=== PATIENT | male | born 1950 | race Caucasian/White ===

== ENCOUNTER → 2018-11-13 10:12 | Outpatient (CLI) | payer MEDICARE, OTHER, SELFPAY ==
--- NOTE | 2018-11-13 | DI.RAD.S_ITS ---
PROCEDURE: FL BARIUM SWALLOW INDICATIONS: GERD/THROAT PAIN COMPARISON: None. FINDINGS: Function: Tertiary contractions are noted in mid to distal esophageal wall muscles with stasis of ingested contrast. No elicited gastroesophageal reflux. There is delayed transit of a calibrated barium tablet through the esophagus into the stomach at the level of GE junction. Morphology: Air-contrast images demonstrate normal mucosal morphology. Single contrast views show no esophageal strictures, extrinsic mass effects, or diverticula. Limited images of the stomach demonstrate normal appearance. 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 No intraluminal filling defect or stricture is seen. No significant gastroesophageal reflux. Dictated by: Víctor Pepe M.D. on 11/13/2018 at 12:12 Approved by: Víctor Pepe M.D. on 11/13/2018 at 12:14
== END ==
PROVIDERS: PCP Internal Medicine; Visit Provider Otolaryngology
DX: K21.9 Gastro-esophageal reflux disease without esophagitis (principal); R07.0 Pain in throat
CPT/HCPCS: 74220

== ENCOUNTER 2019-01-20 14:31 | Emergency (ER) | payer MEDICARE, OTHER, SELFPAY ==
[2019-01-20 14:34] VITALS: BP 191/96; PULSE 87; RESP 18; TEMP 36.1; O2SAT 100
--- NOTE | 2019-01-20 14:58 | PC.NURSE ---
Tetanus up to date per patient.
--- NOTE | 2019-01-20 15:01 | ED.WOUNDLAC ---
HPI - Wound/Laceration <Emani Watson PA-C - Last Filed: 01/20/19 17:33> General Chief Complaint: Wound/Laceration Stated Complaint: RIGHT HAND LITTLE FINGER LACERATION Time Seen by Provider: 01/20/19 15:01 Source: patient Mode of arrival: ambulatory Limitations: no limitations History of Present Illness HPI narrative: This 68-year-old right handed male comes to ED secondary to right pinky finger laceration. He states that he got it caught on the sharp edge of a metal machine part and the table it was on. He states that this just happened a couple of hours ago, has been throbbing and was bleeding quite a bit. He did take his usual pain medicine which she thinks has helped somewhat. He denies any other injury. States his tetanus vaccine is up-to-date in the last 5 years. He notes that he has had significantly elevated blood pressure recently and has appointment with his PCP for this. Denies any change in medical history since last here. Med/Surg History Diabetes mellitus, type II Hypertension Hyperlipidemia Rheumatoid arthritis, with chronic knee hip and shoulder pain Social History Former smoker, quit smoking in 1988 Alcohol use: N quit in 1988 without a history of abuse Caffeine use: Street drug use: N Related Data Home Medications Medication Instructions Recorded Confirmed atorvastatin [Lipitor] 40 mg PO BEDTIME #0 07/05/17 01/20/19 canagliflozin [Invokana] 100 mg PO QDAY #0 07/05/17 cyclobenzaprine 10 mg PO BID #0 07/05/17 01/20/19 docusate sodium 250 mg PO TID #0 07/05/17 fenofibrate 160 mg PO DAILY #0 07/05/17 01/20/19 fluticasone [Flovent Diskus] 50 mcg INH Q DAY #0 07/05/17 hydrochlorothiazide 25 mg PO DAILY #0 07/05/17 01/20/19 loratadine [Claritin] 10 mg PO DAILY PRN #0 07/05/17 01/20/19 metoprolol succinate [Toprol XL] 25 mg PO DAILY #0 07/05/17 01/20/19 nifedipine 60 mg PO BID #0 07/05/17 01/20/19 oxycodone [OxyContin] 20 mg PO BID #0 07/05/17 01/20/19 sennosides [senna] 2 tab PO Q DAY #0 07/05/17 docusate calcium [Stool Softener] 240 mg PO TID 01/20/19 01/20/19 fluticasone 1 spray INTRANASAL DIRECTED 01/20/19 01/20/19 lisinopril 40 mg PO DAILY 01/20/19 01/20/19 metformin 850 mg PO TID 01/20/19 01/20/19 oxycodone-acetaminophen 1 tab PO BID PRN 01/20/19 01/20/19 oxycodone-acetaminophen 1 tab PO Q8H PRN 01/20/19 01/20/19 Previous Rx's Medication Instructions Recorded FERROUS SULFATE (IRON) 325 mg PO BIDCC #60 cap 07/08/17 pantoprazole 40 mg PO 0600,2100 #60 tab 07/08/17 cephalexin [Keflex] 500 mg PO Q8H 7 Days #21 cap 01/20/19 Allergies Allergy/AdvReac Type Severity Reaction Status Date / Time No Known Allergies Allergy Uncoded 03/12/18 12:46 Review of Systems <Emani Watson PA-C - Last Filed: 01/20/19 17:33> Review of Systems ROS Unobtainable: All systems reviewed & are unremarkable except as noted in HPI and below PFSH <Emani Watson PA-C - Last Filed: 01/20/19 17:33> Family History Other No pertinent family history Exam <Emani Watson PA-C - Last Filed: 01/20/19 17:33> Narrative Exam Narrative: GENERAL APPEARANCE: Patient sitting comfortably, in no distress. LUNGS: Clear to auscultation bilaterally. HEART: Rate and rhythm regular without murmur, normal S1 and S2, no S3 or S4. DERM: On the right pinky finger there is a 5 mm laceration at the border of the nail which does not have any gap. There is slight ecchymoses/purple discoloration at the more anterior part of the wound. The nail has a longitudinal break a few mm from the proximal border (complete), partly avulsed NEUROVASCULAR: Right 5th finger sensation is grossly intact, warm and pink MUSCULOSKELETAL: Full range of motion of the right pinky finger, strength intact in all tendons against resistance Initial Vital Signs Initial Vital Signs: Vital Signs Temperature 96.9 F L 01/20/19 14:34 Pulse Rate 87 01/20/19 14:34 Respiratory Rate 18 01/20/19 14:34 Blood Pressure 191/96 H 01/20/19 14:34 Pulse Oximetry 100 01/20/19 14:34 <Titi Farnsworth DO - Last Filed: 01/20/19 17:46> Initial Vital Signs Initial Vital Signs: Vital Signs Temperature 96.9 F L 01/20/19 14:34 Pulse Rate 87 01/20/19 14:34 Respiratory Rate 18 01/20/19 14:34 Blood Pressure 191/96 H 01/20/19 14:34 Pulse Oximetry 100 01/20/19 14:34 Procedures <Emani Watson PA-C - Last Filed: 01/20/19 17:33> [facility] [place] Name of Procedure: Laceration repair: Wound was soaked and cleaned with soap and saline. Right 5th Finger was cleaned with alcohol and digital block placed with 4 cc 1% lidocaine plain in the usual fashion. Finger tip and nail were cleaned with Betadine. The nail was excised. Nail bed is partly macerated and friable, closed with #3 5-0 chromic gut suture. Skin laceration on the medial side was closed with #1 5-0 nylon suture. A portion of the nail was used under bandage for protection. Finger was bandaged and placed in a metal splint. Course <Emani Watson PA-C - Last Filed: 01/20/19 17:33> Orders Ordered: ED Orders 01/20/19 15:04 XR finger RT min 2V Stat Vital Signs - 8 hr 01/20/19 14:34 01/20/19 17:02 Temperature 96.9 F L 97.3 F L Pulse Rate 87 88 Respiratory Rate 18 16 Blood Pressure 191/96 H 174/64 H Pulse Oximetry 100 98 <DO Albertina Gil Last Filed: 01/20/19 17:46> Orders Ordered: ED Orders 01/20/19 15:04 XR finger RT min 2V Stat Vital Signs - 8 hr 01/20/19 14:34 01/20/19 17:02 Temperature 96.9 F L 97.3 F L Pulse Rate 87 88 Respiratory Rate 18 16 Blood Pressure 191/96 H 174/64 H Pulse Oximetry 100 98 MDM - Wound/Laceration <Emani Watson PA-C - Last Filed: 01/20/19 17:33> Imaging Data finger: Radiologist's impression: [address] [address] XRay Report Signed Patient: Nelson Goldstein EMR#: [id number] : 9Acct:[id number] Age/Sex: 68 / MDate of Service: 01/20/19 Loc: ED Accession Number: [id number] Procedure: XR finger RT min 2V Ordering Provider: Emani Watson P.A-C PROCEDURE: XR FINGER RT MIN 2V INDICATIONS: Trauma TECHNIQUE: AP hand, 2 views of the pinky (5th) finger(s) acquired. COMPARISON: None. FINDINGS: Bones: There is a nondisplaced fracture identified involving the tuft of the distal phalanx of the right 5th digit. No intra-articular extension into the distal interphalangeal joint is evident. The remainder of the imaged osseous structures are otherwise unremarkable and noted to be intact. Mild degenerative changes involving the interphalangeal joints of the hand are most pronounced involving the distal interphalangeal joints. Slight deformity involving the 5th metacarpal may be related to previous healed fracture, but may also be within normal limits. Soft tissues: No suspicious soft tissue calcifications. No unexpected radiopaque foreign bodies are evident. IMPRESSION: 1. Nondisplaced tuft fracture of the distal phalanx of the right 5th digit. 2. No radiopaque foreign bodies. Dictated by: Francis Kilpatrick M.D. on 01/20/2019 at 14:26 Approved by: Francis Kilpatrick M.D. on 01/20/2019 at 14:27 Discharge Plan Departure Patient Disposition: Home Clinical Impression: Laceration, Open fracture of tuft of distal phalanx of finger Discharge Date/Time: 01/20/19 17:01 Interventions: ED Discharge Assessment Last Done: 01/20/19 17:02 Instructions: DI for Finger Fracture, DI for Laceration Repair -- Finger Activity Restrictions/Additional Instructions: Please keep your sutures clean and dry. It is okay to rinse quickly and pat dry but do not immerse in water. Monitor for any signs of infection as we discussed (i.e. Worsening redness or swelling, draining pus, fever), and see your PCP or return to ED right away if any. The 1 black suture on the side of your finger will need to be removed in about a week. The ones in your nail bed will not need to be removed. We put a piece of the nail in as a part of your bandage just for protection. This may come off when you change the dressing and it is fine to leave it off (it won't make a difference in as far as healing). It is not clear at this point whether your nail will grow back normally (it will depend on how much damage the crush injury caused, but it should not affect the function of your finger). You did break (crush) the tip of your finger today, and this is considered an open fracture that needs antibiotics. I have sent a prescription for cephalexin to your pharmacy for you to start. This is usually well tolerated. Take it 3 times daily. Please start right away and get another dose in before bedtime. Dr. Espinoza was not available to recheck the finger and get the stitch out so we have scheduled you with Dr. Mobley on Saturday at 12:00 (you should keep your original appointment for your blood pressure as well since Dr. Espinoza is your PCP) Prescriptions: New cephalexin [Keflex] 500 mg capsule 500 mg PO Q8H 7 Days Qty: 21 RF: 0 No Action nifedipine 60 MG tablet extended release 24hr 60 mg PO BID Qty: 0 RF: 0 cyclobenzaprine 10 MG tablet 10 mg PO BID Qty: 0 RF: 0 atorvastatin [Lipitor] 40 MG tablet 40 mg PO BEDTIME Qty: 0 RF: 0 hydrochlorothiazide 25 MG tablet 25 mg PO DAILY Qty: 0 RF: 0 docusate sodium 250 MG capsule 250 mg PO TID Qty: 0 RF: 0 fenofibrate 160 MG tablet 160 mg PO DAILY Qty: 0 RF: 0 metoprolol succinate [Toprol XL] 25 MG tablet extended release 24 hr 25 mg PO DAILY Qty: 0 RF: 0 canagliflozin [Invokana] 100 MG tablet 100 mg PO QDAY Qty: 0 RF: 0 oxycodone [OxyContin] 20 MG tablet,oral only,ext.rel.12 hr 20 mg PO BID Qty: 0 RF: 0 sennosides [senna] 8.6 MG tablet 2 tab PO Q DAY Qty: 0 RF: 0 fluticasone [Flovent Diskus] 50 MCG blister with device 50 mcg INH Q DAY Qty: 0 RF: 0 loratadine [Claritin] 10 MG tablet 10 mg PO DAILY PRN (Reason: Allergy Symptoms) Qty: 0 RF: 0 pantoprazole 40 MG tablet,delayed release (DR/EC) 40 mg PO 0600,2100 Qty: 60 RF: 0 FERROUS SULFATE (IRON) 325 mg PO BIDCC Qty: 60 RF: 0 docusate calcium [Stool Softener] 240 mg capsule 240 mg PO TID RF: 0 metformin 850 mg tablet 850 mg PO TID RF: 0 oxycodone-acetaminophen 5-325 mg tablet 1 tab PO BID PRN (Reason: pain) RF: 0 oxycodone-acetaminophen 10-325 mg tablet 1 tab PO Q8H PRN (Reason: pain) RF: 0 lisinopril 40 mg tablet 40 mg PO DAILY RF: 0 fluticasone 50 mcg/actuation spray,suspension 1 spray Intranasal DIRECTED RF: 0 Referrals: Kristopher Espinoza MD [Primary Care Provider] - <Titi Farnsworth DO - Last Filed: 01/20/19 17:46> Cosign ED Attending Cosignature Attestation: I was available for consultation during this patient's emergency department encounter
--- NOTE | 2019-01-20 15:04 | DI.RAD.S_ITS ---
PROCEDURE: XR FINGER RT MIN 2V INDICATIONS: Trauma TECHNIQUE: AP hand, 2 views of the pinky (5th) finger(s) acquired. COMPARISON: None. FINDINGS: Bones: There is a nondisplaced fracture identified involving the tuft of the distal phalanx of the right 5th digit. No intra-articular extension into the distal interphalangeal joint is evident. The remainder of the imaged osseous structures are otherwise unremarkable and noted to be intact. Mild degenerative changes involving the interphalangeal joints of the hand are most pronounced involving the distal interphalangeal joints. Slight deformity involving the 5th metacarpal may be related to previous healed fracture, but may also be within normal limits. Soft tissues: No suspicious soft tissue calcifications. No unexpected radiopaque foreign bodies are evident. IMPRESSION: 1. Nondisplaced tuft fracture of the distal phalanx of the right 5th digit. 2. No radiopaque foreign bodies. Dictated by: Francis Kilpatrick M.D. on 01/20/2019 at 14:26 Approved by: Francis Kilpatrick M.D. on 01/20/2019 at 14:27
--- NOTE | 2019-01-20 16:56 | PC.NURSE ---
Applied steri-strips over nailbed and applied finger splint;
[2019-01-20 17:02] VITALS: BP 174/64; PULSE 88; RESP 16; TEMP 36.3; O2SAT 98
== END 2019-01-20 17:01 | disposition home or self-care (01) ==
PROVIDERS: Emergency Provider Internal Medicine; PCP Internal Medicine
DX: S62.666B Nondisplaced fracture of distal phalanx of right little finger, initial encounter for open fracture (principal); W26.8XXA Contact with other sharp object(s), not elsewhere classified, initial encounter
CPT/HCPCS: 29130; 73140; 99283

== ENCOUNTER 2019-09-02 14:22 | Day surgery (SDC) | payer MEDICARE, OTHER, SELFPAY ==
[2019-09-02] VITALS (7 sets, daily range): BP systolic 159–186; BP diastolic 78–92; PULSE 84–88; RESP 9–15; TEMP 36.4–36.6; O2SAT 96–100; BMI 29.5
--- NOTE | 2019-09-02 | PATH_ITS ---
[facility] Accession Number: [id number] . 01 Material submitted: . PART A: gastrointestinal site - GASTRIC BIOPSY PART B: esophagus, E-G Junction - GE JUNCTION/FUNDUS . 01 Clinical history: . EGD W/POSS BX A. R/O H. PYLORI B. INFLAMMATION; R/O DYSPLASIA . 02 Diagnosis: A. Stomach, Biopsy: Antral body type mucosa with mild chronic gastritis. Negative for Helicobacter by immunohistochemistry. Negative for intestinal metaplasia. Negative for dysplasia and malignancy. . B. Gastroesophageal Junction/Fundus, Biopsy: Columnar mucosa with foveolar hyperplasia. Negative for intestinal metaplasia by Alcian blue stain. Negative for dysplasia and malignancy. [facility] 09/07/2019 1635 Local . 02 Electronically signed: . Ludivina Lopez MD, Pathologist NPI- [id number] . 01 Gross description: . Part A: GASTRIC BIOPSY: Received in formalin are 3 fragment(s) of lyons, soft tissue measuring 0.1 x 0.1 x 0.1 cm to 0.3 x 0.2 x 0.2 cm which is entirely submitted and submitted entirely in 1 cassette(s) Part B: GE JUNCTION/FUNDUS: Received in formalin are multiple fragment(s) of lyons, soft tissue measuring 0.1 x 0.1 x 0.1 cm to 0.2 x 0.2 x 0.2 cm which is entirely submitted and submitted entirely in 1 cassette(s) /[facility] [place]/03/[place] 1657 Local . 02 Microscopic: . A. An immunohistochemical stain was performed to evaluate for Helicobacter organisms and is negative. The control stain showed appropriate reactivity. . B. An AB and PAS stain was performed to evaluate for intestinal metaplasia and is negative. The control stain showed appropriate reactivity. . * This test was developed and its performance characteristics determined by [facility]. It has not been cleared or approved by the U.S. Food and Drug Administration. The FDA has determined that such clearance or approval is not necessary. This test is used for clinical purposes. It should not be regarded as investigational or for research. . 02 Pathologist provided ICD-10: R13.12 . 02 CPT . 707006, 406989, 674023, M90036 Performed at: 01 [facility] [address] [place] [id number] MD Moris Davis MD Phone: [phone] Performed at: 02 [facility] [address] [place] [id number] MD Ludivina Lopez MD Phone: [phone]
--- NOTE | 2019-09-02 13:22 | PM.HP.1 ---
History of Present Illness History of Present Illness Date Patient Seen: 09/02/19 Chief complaint: [id number] EGD W/POSS BX Narrative: Patient is a 69-year-old male who presented for EGD. Patient was last seen in the office on June 30, 2019. At that time he described dysphagia. 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 His last EGD was 2 years ago at [facility]. He was noted to have Mathias's esophagus and a gastric ulcer at that time. Modified barium swallow that would be General in October of 2018 showed slow progression of contrast suspicious for motility disorder. He does have a history of diabetes, hypertension, PTSD, chronic pain syndrome. Patient History Family History (Updated 01/20/19 @ 15:19 by Emani Watson PA-C) Other No pertinent family history Social History household members: friend(s) Family & Social History Family History Other No pertinent family history Meds Home Medications and Allergies Home Medications Medication Instructions Recorded Confirmed Type Flovent Diskus 50 mcg INH Q DAY #0 07/05/17 09/02/19 History atorvastatin [Lipitor] 40 mg PO BEDTIME #0 07/05/17 09/02/19 History cyclobenzaprine 10 mg PO BID #0 07/05/17 09/02/19 History fenofibrate 160 mg PO DAILY #0 07/05/17 09/02/19 History hydrochlorothiazide 25 mg PO DAILY #0 07/05/17 09/02/19 History loratadine [Claritin] 10 mg PO DAILY PRN #0 07/05/17 09/02/19 History metoprolol succinate [Toprol XL] 25 mg PO DAILY #0 07/05/17 09/02/19 History nifedipine 60 mg PO BID #0 07/05/17 09/02/19 History oxycodone [OxyContin] 20 mg PO BID #0 07/05/17 09/02/19 History sennosides [senna] 2 tab PO Q DAY #0 07/05/17 09/02/19 History pantoprazole 40 mg PO 0600,2100 #60 tab 07/08/17 09/02/19 Rx docusate calcium [Stool Softener] 240 mg PO TID 01/20/19 09/02/19 History fluticasone propionate 1 spray INTRANASAL DIRECTED 01/20/19 09/02/19 History lisinopril 40 mg PO DAILY 01/20/19 09/02/19 History metformin 850 mg PO TID 01/20/19 09/02/19 History oxycodone-acetaminophen 1 tab PO BID PRN 01/20/19 09/02/19 History oxycodone-acetaminophen 1 tab PO Q8H PRN 01/20/19 09/02/19 History oxycodone [OxyContin] 10 mg PO BID 09/02/19 09/02/19 History Allergies Allergy/AdvReac Type Severity Reaction Status Date / Time No Known Allergies Allergy Uncoded 03/12/18 12:46 Review of Systems Review of Systems ROS Unobtainable: All systems reviewed & are unremarkable except as noted in HPI and below Exam Const General: cooperative, healthy appearing, comfortable, well developed and well groomed Nutritional Appearance: average body habitus Orientation: alert, awake and oriented x3 HENMT Head: normocephalic and atraumatic Nose: external nose normal Mouth: oral mucosae normal Resp Effort & Inspection: normal respiratory effort, able to speak in complete sentences and abnormal respiratory pattern Auscultation: clear to auscultation bilaterally Cardio Rate: regular rate Rhythm: regular rhythm Heart Sounds: S1 normal and S2 normal GI Palpation: soft and No tender Auscultation: normal bowel sounds Extrem General: no pedal edema Assessment & Plan Assessment & Plan narrative: 1. Dysphagia 2. History of peptic ulcer disease 3. History of Mathias's esophagus EGD today with anesthesia
[2019-09-02] MEDS: SODIUM CHLORIDE 0.9% 1,000 ML 70 ML IV (15:26)
--- NOTE | 2019-09-02 16:27 | PM.OP.ENDO ---
Operative Date/Time/Diagnoses Date of procedure: 09/02/19 Time of procedure: 16:18 Procedure Notes Procedure in detail: Surgeon: Zina Mejia DO Procedure: Esophagogastroduodenoscopy with __ Preoperative diagnosis: 1. Dysphagia 2. History of Mathias's esophagus 3. History of peptic ulcer disease Postoperative diagnosis: 1. GE junction/fundus inflammation -rule out dysplasia 2. Normal-appearing gastric mucosa, Rule out H pylori 3. Tortuous esophagus -suggestive of esophageal dysmotility Medications: Monitored anesthesia care, see anesthesia note Preanesthesia Assessment An H and P was performed/updated and the Px?s ASA class is ____. The procedure was discussed in detail with the patient. The potential risks and complications including infection, bleeding, missed lesions, perforation, need for surgery in case of perforation, prolonged hospital stay, and were explained. A brief question and answer period was allotted and once all questions were answered, informed consent was obtained. The patient was brought back to the procedure room and placed on standard monitoring. The patient?s vital signs were monitored continuously throughout the entire procedure. Prior to starting, a timeout was performed to confirm the patient?s identity, allergies, medications, and procedure. Procedure in detail The patient was placed in left lateral decubitus position and a bite block was inserted. The tip of the upper endoscope was placed into the mouth and advanced without difficulty under direct visualization into the esophagus. Esophagus: 1. Inflammation at the GE junction extending into the fundus -biopsies were taken to rule out dysplasia, this is concerning for dysplasia/early mass 2. Moderately tortuous esophagus in the mid and distal esophagus Stomach: Normal appearing gastric mucosa with no further evidence of peptic ulcer. Biopsied to rule out H pylori. Duodenum: Normal appearing duodenum The patient tolerated the procedure well and will be brought back to the recovery area to be discharged once criteria are met. The total physician intraservice time was 9min. Complications There were no complications and estimated blood loss was minimal. Recommendations: Resume previous diet Continue outPx medications Follow up pathology results Repeat EGD will be determined after pathology results are reviewed Office follow up as previously scheduled An emergency contact number was given to the patient for any complications related to the procedure
--- NOTE | 2019-09-02 16:51 | SUR.PHASEI ---
To PACU awake and oriented, HOB elevated, juice given. spoke with the patient.
== END 2019-09-02 17:11 | disposition home or self-care (01) ==
PROVIDERS: Family Provider Internal Medicine; PCP Internal Medicine; Visit Provider Student in an Organized Health Care Education/Training Program
PROC: 0DJ08ZZ Inspection of Upper Intestinal Tract, Via Natural or Artificial Opening Endoscopic (ICD-10-PCS; CPT 43235; principal; 2019-09-02 15:30)
DX: R13.12 Dysphagia, oropharyngeal phase (principal); I10 Essential (primary) hypertension; E11.9 Type 2 diabetes mellitus without complications; Z79.84 Long term (current) use of oral hypoglycemic drugs
CPT/HCPCS: 43239; J2250; J2704; J3010

== ENCOUNTER → 2019-09-07 11:06 | Outpatient (CLI) | payer MEDICARE, OTHER, SELFPAY ==
--- NOTE | 2019-09-07 | DI.MRI.S_ITS ---
PROCEDURE: MR SHOULDER RT WO CON INDICATIONS: Pain in right shoulder TECHNIQUE: Noncontrast axial fat suppressed T2 weighted pulse sequence however the remaining pulse sequences were unable to be obtained, as the patient declined continuing with examination COMPARISON: [facility], CR, XR SHOULDER 2+ VIEWS RIGHT, 08/20/2019, 11:47. FINDINGS: Image quality: Excellent. Degenerative cystic change at the posterior aspect of the greater tuberosity. Mild subscapularis tendinopathy/thickening. There is mild glenohumeral joint degeneration. IMPRESSION: Incomplete, non-diagnostic examination. On the few obtained images, there is mild subscapularis tendinopathy/thickening and glenohumeral joint degeneration. Dictated by: Yunior Coates M.D. on 09/07/2019 at 13:01 Approved by: Yunior Coates M.D. on 09/07/2019 at 13:05
== END ==
PROVIDERS: Family Provider Internal Medicine; PCP Internal Medicine; Visit Provider Orthopaedic Surgery
DX: M25.511 Pain in right shoulder (principal); M19.011 Primary osteoarthritis, right shoulder
CPT/HCPCS: 73221

== ENCOUNTER → 2020-06-26 09:58 | Outpatient (CLI) | payer MEDICARE, OTHER, SELFPAY ==
[2020-06-27 21:17] LABS: COVID19 Sendout Not Detected (Not Detect)
== END ==
PROVIDERS: Family Provider Internal Medicine; PCP Internal Medicine; Visit Provider Physician Assistant
DX: Z01.818 Encounter for other preprocedural examination (principal)
CPT/HCPCS: 87635

== ENCOUNTER 2020-06-29 12:14 | Day surgery (SDC) | payer MEDICARE, OTHER, SELFPAY ==
--- NOTE | 2020-06-29 | PATH_ITS ---
[facility] Accession Number: [id number] . 01 Material submitted: . esophagus, E-G Junction - GE JUNCTION NODULARITY . 01 Clinical history: . EGD W/BOTOX AND BX . 02 Diagnosis: Gastroesophageal Junction, Nodularity, Biopsy: Squamocolumnar junctional mucosa with chronic inflammation and foveolar hyperplasia. Negative for intestinal metaplasia. Negative for dysplasia and malignancy. [facility] 07/01/2020 1003 Local . 02 Electronically signed: . Ludivina Lopez MD, Pathologist NPI- [id number] . 01 Gross description: . GE JUNCTION NODULARITY: Received in formalin is 1 fragment(s) of lyons, soft tissue measuring 0.2 x 0.2 x 0.2 cm submitted entirely in 1 cassette(s) /[facility]BJ 06/30/2020 0813 Local . 02 Pathologist provided ICD-10: R13.14 . 02 CPT . 271519 Performed at: 01 [facility] [address], [place], [place] [id number] MD Moris Davis MD Phone: [phone] Performed at: 02 [facility] [address] [place], [place] [id number] MD Ludivina Lopez MD Phone: [phone]
--- NOTE | 2020-06-29 12:29 | PM.HP.1 ---
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 On questioning today the patient states that his swallowing is markedly better and he is able to eat pretty much any type of food. This is a change from his last visit with in January 2020. EGD showed esophagitis which was treated PPI and sucralfate. Patient History Family & Social History Family History Other No pertinent family history Social History: household members friend(s) Meds Home Medications and Allergies Home Medications Medication Instructions Recorded Confirmed Type Flovent Diskus 50 mcg INH Q DAY #0 07/05/17 09/02/19 History atorvastatin [Lipitor] 40 mg PO BEDTIME #0 07/05/17 09/02/19 History cyclobenzaprine 10 mg PO BID #0 07/05/17 09/02/19 History fenofibrate 160 mg PO DAILY #0 07/05/17 09/02/19 History hydrochlorothiazide 25 mg PO DAILY #0 07/05/17 09/02/19 History loratadine [Claritin] 10 mg PO DAILY PRN #0 07/05/17 09/02/19 History metoprolol succinate [Toprol XL] 25 mg PO DAILY #0 07/05/17 09/02/19 History nifedipine 60 mg PO BID #0 07/05/17 09/02/19 History oxycodone [OxyContin] 20 mg PO BID #0 07/05/17 09/02/19 History sennosides [senna] 2 tab PO Q DAY #0 07/05/17 09/02/19 History pantoprazole 40 mg PO 0600,2100 #60 tab 07/08/17 09/02/19 Rx docusate calcium 240 mg PO TID 01/20/19 09/02/19 History fluticasone propionate 1 spray INTRANASAL DIRECTED 01/20/19 09/02/19 History lisinopril 40 mg PO DAILY 01/20/19 09/02/19 History metformin 850 mg PO TID 01/20/19 09/02/19 History oxycodone-acetaminophen 1 tab PO BID PRN 01/20/19 09/02/19 History oxycodone-acetaminophen 1 tab PO Q8H PRN 01/20/19 09/02/19 History oxycodone [OxyContin] 10 mg PO BID 09/02/19 09/02/19 History Allergies Allergy/AdvReac Type Severity Reaction Status Date / Time No Known Allergies Allergy Uncoded 06/29/20 13:33 Exam Narrative Exam Narrative: General: Patient is overweight, not in apparent distress Cardiovascular: Regular rate and rhythm, no murmurs, rubs, or gallops; no evidence of edema; no palpable abdominal aortic aneurysm Gastrointestinal: Normoactive bowel sounds, soft, nontender, nondistended, no rebound tenderness, no hepatosplenomegaly, no evidence of hernia Assessment & Plan Assessment & Plan narrative: 70-year-old male with a history of esophageal dysphagia likely due to esophageal dysmotility 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 His dysphagia is markedly improved with medication and hence we will not perform Botox injection at this point. We will perform the upper endoscopy to check for healing of his esophagitis diagnosed in January 2020 Regarding the procedure(s), the risks and potential complications, benefits, and alternatives (including not doing the procedure) were discussed with the patient. The risks include but are not limited to bleeding, splenic injury, infection, perforation which may require surgical intervention, missed lesions, and adverse reactions to sedative medicines. After a question and answer period, the patient agreed to proceed with the procedure(s) and gives informed consent.
[2020-06-29] MEDS: SODIUM CHLORIDE 0.9% 1,000 ML 70 ML IV (13:35)
[2020-06-29 13:47] VITALS: BP 202/92; PULSE 78; RESP 16; TEMP 35.6; O2SAT 98; BMI 32.5
--- NOTE | 2020-06-29 13:54 | P.OP.ENDO_ITS ---
Operative Date/Time/Diagnoses Date of procedure: 06/29/20 Procedure Notes Procedure in detail: Surgeon: Hadley Urena MD Procedure: Esophagogastroduodenoscopy with biopsy Preoperative diagnosis: Esophageal dysphagia, reflux esophagitis on EGD January 2020 Postoperative diagnosis: GE junction nodularity Medications: Conscious sedation using 6 mg IV of Midazolam and 100 mcg IV of Fentanyl; 20 cc 4% lidocaine gargle Preanesthesia Assessment An H and P was performed/updated and the Px?s ASA class is 2. The procedure was discussed in detail with the patient. The potential risks and complications including infection, bleeding, missed lesions, perforation, need for surgery in case of perforation, prolonged hospital stay, and were explained. A brief question and answer period was allotted and once all questions were answered, informed consent was obtained. The patient was brought back to the procedure room and placed on standard monitoring. The patient?s vital signs were monitored continuously throughout the entire procedure. Prior to starting, a timeout was performed to confirm the patient?s identity, allergies, medications, and procedure. Procedure in detail The patient was placed in left lateral decubitus position and a bite block was inserted. The tip of the upper endoscope was placed into the mouth and advanced without difficulty under direct visualization into the esophagus. Esophagus: There was no significant tortuosity in the distal esophagus on this examination. There is no evidence of esophagitis. The GE junction had perhaps mild hypertonicity. No Botox was injected this exam due to the marked improvement in the patient's dysphagia Stomach: Retroflexion in the cardia area showed some nodularity at the GE junction. This was biopsied with minimal bleeding. The remainder of the stomach appeared unremarkable Duodenum: Normal visualized duodenum The patient tolerated the procedure well and will be brought back to the recovery area to be discharged once criteria are met. The total physician intraservice time was 10 minutes. Complications There were no complications and estimated blood loss was minimal. Recommendations: Resume previous diet Continue outPx medications Follow up pathology results Call our office ([facility]) to schedule follow-up in 3 months; schedule sooner if you have any recurrence of swallowing issues An emergency contact number was given to the patient for any complications related to the procedure
[2020-06-29 14:11] VITALS: BP 184/87; PULSE 72; RESP 15; TEMP 36.4; O2SAT 97
[2020-06-29 14:16] VITALS: BP 186/83; PULSE 70; RESP 15; O2SAT 97
[2020-06-29 14:21] VITALS: BP 172/76; PULSE 74; RESP 16; O2SAT 99
[2020-06-29 14:25] VITALS: BP 176/77; PULSE 74; RESP 16; TEMP 36.7; O2SAT 100
[2020-06-29 14:41] VITALS: BP 197/79; PULSE 75; RESP 15; TEMP 36.3; O2SAT 100
== END 2020-06-29 14:52 | disposition home or self-care (01) ==
PROVIDERS: Family Provider Internal Medicine; PCP Internal Medicine; Referring Provider Internal Medicine Gastroenterology; Visit Provider Internal Medicine Gastroenterology
PROC: 0DJ08ZZ Inspection of Upper Intestinal Tract, Via Natural or Artificial Opening Endoscopic (ICD-10-PCS; CPT 43235; principal; 2020-06-29 15:00)
DX: K21.0 Gastro-esophageal reflux disease with esophagitis (principal); E11.9 Type 2 diabetes mellitus without complications; I10 Essential (primary) hypertension; Z79.84 Long term (current) use of oral hypoglycemic drugs
CPT/HCPCS: 43239

== ENCOUNTER → 2020-08-17 11:40 | Outpatient (CLI) | payer MEDICARE, OTHER, SELFPAY ==
--- NOTE | 2020-08-17 11:45 | DI.RAD.S_ITS ---
PROCEDURE: XR FINGER LT MIN 2V INDICATIONS: LEFT THUMB PAIN TECHNIQUE: AP hand, 2 views of the 1st finger(s) acquired. COMPARISON: [facility], CR, XR FINGER RT MIN 2V, 01/20/2019, 15:11. FINDINGS: Bones: No dislocations. No suspicious bony lesions. Best seen on the lateral views what appears to be a fracture along the palm are aspect of the base of the 1st distal phalanx, angulated anteriorly at its base. Osteoarthritis is superimposed at the interphalangeal Soft tissues: No suspicious soft tissue calcifications. IMPRESSION: Articular margin fracture, chronicity uncertain. 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 Dictated by: Barrie Joseph M.D. on 08/17/2020 at 12:26 Approved by: Barrie Joseph M.D. on 08/17/2020 at 12:28
== END ==
PROVIDERS: Family Provider Internal Medicine; PCP Internal Medicine; Referring Provider Internal Medicine; Visit Provider Internal Medicine
DX: M79.645 Pain in left finger(s) (principal); S62.522A Displaced fracture of distal phalanx of left thumb, initial encounter for closed fracture; M19.042 Primary osteoarthritis, left hand
CPT/HCPCS: 73140

== ENCOUNTER → 2020-09-05 07:44 | Outpatient (CLI) | payer MEDICARE, OTHER, SELFPAY ==
--- NOTE | 2020-09-05 | DI.ECHO.S_ITS ---
[facility] +---------+ : : [address] [place] [place] : : : : [id number] : : : : Phone: [phone] Echocardiogram Report + + :Name: KENY FAY Study Date: 09/05/2020 Height: 68 in : :[facility] Weight: 225 lb : : Gender: Male BSA: 2.1 m2 : :: 1950 Age: 70 yrs BP: 165/86 mmHg: :Reason For Study: LOCALIZED EDEMA : :Ordering Physician: FRANKLIN BEASLEY Performed By: Grecia Pierre : :Referring: FRANKLIN BEASLEY : + + Interpretation Summary Normal both left and right ventricle size and function. The ejection fraction is 60-65%. No significant valvular abnormality. Comparison is made with the echocardiogram of 01/14/2017, there has been no significant change. Procedure: A two-dimensional transthoracic echocardiogram with color flow and Doppler was performed. The study quality was technically adequate. Comparison is made with the echocardiogram of 01/14/2017. The patient was in sinus rhythm with heart rates between 72-84 bpm during the exam. Left Ventricle: The left ventricle is normal in size and wall thickness. The ejection fraction is estimated to be 60-65%. There are no focal wall motion abnormalities. Right Ventricle: The right ventricle is normal in size and function. Atria: The left atrial size is normal. Right atrial size is normal. There is no Doppler evidence for an interatrial shunt. Mitral Valve: The mitral valve is normal in structure and function. There is trace mitral regurgitation. Aortic Valve: The aortic valve is trileaflet. The aortic valve opens well. There is no aortic valve stenosis. No aortic regurgitation is present. Tricuspid Valve: The tricuspid valve is normal in structure and function. Pulmonary artery pressures cannot be estimated because of the lack of a measurable TR jet velocity but the IVC suggests a CVP of around 3 mmHg. There is trace tricuspid regurgitation. Pulmonic Valve: The pulmonic valve is not well visualized. There is no pulmonic valvular regurgitation. Great Vessels: The aortic root is normal size. The aortic root is mildly dilated. The IVC is of normal diameter and collapses greater than 50% with a sniff. This suggests a low right atrial pressure of 3 mm Hg. Pericardium/ Pleura There is no pericardial effusion. There is no pleural effusion. MMode/2D Measurements & Calculations LVIDd: 5.1 cm LVOT diam: 2.3 cm LVIDs: 3.1 cm Ao root diam: 3.1 cm FS: 38.6 % asc Aorta Diam: 3.4 cm EPSS: 1.0 cm Ao Arch Diam (Prox Trans): 2.9 cm IVSd: 1.00 cm LVPWd: 1.1 cm LV mark. diameter/BSA (cm/m^2): 2.4 LV sys. diameter/BSA (cm/m^2): 1.5 LA A2 area: 20.9 cm2 RA long axis: 5.7 cm LA A4 area: 21.3 cm2 RA area: 19.6 cm2 LA length (vol): 5.8 cm RA vol: 57.3 ml LA vol: 64.6 ml RA : 26.7 ml/m2 LA vol index: 30.1 ml/m2 IVC diam: 1.3 cm RVD1 (basal): 3.9 cm TAPSE: 2.5 cm Doppler Measurements & Calculations Ao V2 max: 142.8 cm/sec LVOT Max Geovanny: 107.7 cm/sec Ao V2 mean: 93.4 cm/sec LV V1 max P.6 mmHg Ao max P.2 mmHg LV V1 VTI: 25.7 cm Ao mean P.2 mmHg HONEY(I,D): 3.3 cm2 Ao V2 VTI: 32.4 cm HONEY(V,D): 3.1 cm2 sev ratio: 0.80 HONEY indexed to BSA (cm^2/m^2): 1.5 MV E max geovanny: 77.5 cm/sec PA V2 max: 75.0 cm/sec MV A max geovanny: 118.1 cm/sec PA V2 mean: 50.3 cm/sec MV E/A: 0.66 PA mean P.2 mmHg Med Peak E' Geovanny: 6.2 cm/sec PA pr(Accel): 19.1 mmHg E/E' med: 12.6 Lat Peak E' Geovanny: 11.2 cm/sec E/E' lat: 6.9 E/e' average: 9.8 MV dec time: 0.22 sec SV([facility]): 107.1 ml Electronically signed by: Sveta Collado on Reading Physician:09/05/2020 11:42 AM
== END ==
PROVIDERS: Family Provider Internal Medicine; PCP Internal Medicine; Referring Provider Internal Medicine; Visit Provider Internal Medicine
DX: I77.810 Thoracic aortic ectasia (principal); R60.0 Localized edema
CPT/HCPCS: 93306

== ENCOUNTER → 2020-10-18 11:13 | Outpatient (CLI) | payer MEDICARE, OTHER, SELFPAY ==
--- NOTE | 2020-10-18 | DI.RAD.S_ITS ---
PROCEDURE: XR KNEE LT 3V INDICATIONS: Bilateral Hand/Bilateral Knee Pain TECHNIQUE: 3 views of the knee were acquired. COMPARISON: None. FINDINGS: Bones: No fractures or dislocations. No suspicious bony lesions. Soft tissues: No joint effusion. No suspicious soft tissue calcifications. IMPRESSION: Normal for age. Dictated by: Barrie Joseph M.D. on 10/18/2020 at 12:38 Approved by: Barrie Joseph M.D. on 10/18/2020 at 12:38
--- NOTE | 2020-10-18 | DI.RAD.S_ITS ---
PROCEDURE: XR KNEE RT 3V INDICATIONS: PAIN TECHNIQUE: 3 views of the knee were acquired. COMPARISON: None. FINDINGS: Bones: No fractures or dislocations. No suspicious bony lesions. Soft tissues: No joint effusion. No suspicious soft tissue calcifications. IMPRESSION: Normal for age. Dictated by: Barrie Joseph M.D. on 10/18/2020 at 12:38 Approved by: Barrie Joseph M.D. on 10/18/2020 at 12:38
--- NOTE | 2020-10-18 | DI.RAD.S_ITS ---
PROCEDURE: XR HAND LT MIN 3V INDICATIONS: Bilateral Hand/Bilateral Knee Pain TECHNIQUE: 3 views of the hand(s) acquired. COMPARISON: None. FINDINGS: Bones: No fractures or dislocations. Carpal bones are normally aligned. No suspicious bony lesions. Soft tissues: No suspicious soft tissue calcifications. IMPRESSION: The left hand shows an equivalent degree of mild distal interphalangeal degenerative osteoarthritic change most prominent at the 3rd digit and without associated evidence of erosive arthritis. Dictated by: Barrie Joseph M.D. on 10/18/2020 at 12:37 Approved by: Barrie Joseph M.D. on 10/18/2020 at 12:38
--- NOTE | 2020-10-18 | DI.RAD.S_ITS ---
PROCEDURE: XR HAND RT MIN 3V INDICATIONS: Bilateral Hand/Bilateral Knee Pain TECHNIQUE: 3 views of the right hand acquired. COMPARISON: None. FINDINGS: Bones: No fractures or dislocations. Carpal bones are normally aligned. No suspicious bony lesions. There is a mild degree of distal interphalangeal degenerative osteoarthritic change best seen at the 3rd digit. Soft tissues: No suspicious soft tissue calcifications. IMPRESSION: No trauma found, note is made of mild distal interphalangeal degenerative osteoarthritis and otherwise source of pain is not identified. Dictated by: Barrie Joseph M.D. on 10/18/2020 at 12:36 Approved by: Barrie Joseph M.D. on 10/18/2020 at 12:37
== END ==
PROVIDERS: Family Provider Internal Medicine; PCP Internal Medicine; Referring Provider Internal Medicine; Visit Provider Internal Medicine
DX: M25.561 Pain in right knee (principal); M25.562 Pain in left knee; M79.642 Pain in left hand; M79.641 Pain in right hand
CPT/HCPCS: 73130; 73562

== ENCOUNTER → 2020-12-06 08:59 | Outpatient (CLI) | payer MEDICARE, OTHER, SELFPAY ==
--- NOTE | 2020-12-06 | DI.RAD.S_ITS ---
PROCEDURE: XR WRIST LT MIN 3V INDICATIONS: Pain in left wrist TECHNIQUE: 4 views of the wrist were acquired. COMPARISON: [facility], CR, XR HAND LT MIN 3V, 10/18/2020, 11:31. [facility], CR, XR FINGER LT MIN 2V, 12/06/2020, 9:06. FINDINGS: Bones: No fractures or dislocations. No suspicious bony lesions. Mild radiocarpal, triscaphe and 1st carpometacarpal joint degeneration. Scaphoid view: Scaphoid is intact. Soft tissues: No suspicious soft tissue calcifications. IMPRESSION: Mild degenerative joint disease. Dictated by: Dax Reyes M.D. on 12/06/2020 at 10:20 Approved by: Dax Reyes M.D. on 12/06/2020 at 10:21
--- NOTE | 2020-12-06 | DI.RAD.S_ITS ---
PROCEDURE: XR FINGER LT MIN 2V INDICATIONS: Pain in left thumb,Pain in left wrist TECHNIQUE: AP hand, 2 views of the 1st finger(s) acquired. COMPARISON: [facility], CR, XR HAND LT MIN 3V, 10/18/2020, 11:31. [facility], CR, XR FINGER LT MIN 2V, 08/17/2020, 10:50. FINDINGS: Bones: No fractures or dislocations. There is an ossicle in the dorsal aspect of the 1st interphalangeal joint. Mild degenerative joint disease is present at the 1st carpometacarpal, metacarpophalangeal and interphalangeal joints. No suspicious bony lesions. Soft tissues: No suspicious soft tissue calcifications. Soft tissue swelling around the 1st interphalangeal joint. IMPRESSION: 1. An ossicle in the dorsal aspect of the 1st interphalangeal joint suggesting an avulsion fracture fragment of uncertain chronicity 2. Mild degenerative joint disease. Dictated by: Dax Reyes M.D. on 12/06/2020 at 10:16 Approved by: Dax Reyes M.D. on 12/06/2020 at 10:19
== END ==
PROVIDERS: Family Provider Internal Medicine; PCP Internal Medicine; Referring Provider Internal Medicine; Visit Provider Internal Medicine
DX: M79.645 Pain in left finger(s) (principal); M25.532 Pain in left wrist; M18.12 Unilateral primary osteoarthritis of first carpometacarpal joint, left hand; M19.042 Primary osteoarthritis, left hand; M19.032 Primary osteoarthritis, left wrist
CPT/HCPCS: 73110; 73140

== ENCOUNTER 2021-03-05 23:52 | Inpatient (IN) | payer MEDICARE, OTHER, SELFPAY ==
[2021-03-05 23:57] VITALS: BP 255/110; PULSE 87; RESP 20; TEMP 36.6; O2SAT 100; BMI 29.4
[2021-03-06] VITALS (83 sets, daily range): BP systolic 127–255; BP diastolic 61–136; PULSE 65–100; RESP 9–38; TEMP 36.1–36.7; O2SAT 96–100; BMI 31.9
--- NOTE | 2021-03-06 00:03 | DI.RAD.S_ITS ---
PROCEDURE: XR CHEST 1V INDICATIONS: SOB TECHNIQUE: One view of the chest was acquired. COMPARISON: None. FINDINGS: Surgical changes and devices: None. Lungs and pleura: Lungs are clear. No pleural effusions or pneumothorax. Mediastinum: Mediastinal contours appear normal. Heart size is normal. Bones and chest wall: No suspicious bony lesions. Overlying soft tissues appear unremarkable. IMPRESSION: No acute cardiopulmonary disease process. Dictated by: Oralia So MD, PhD on 03/06/2021 at 8:10 Approved by: Oralia So MD, PhD on 03/06/2021 at 8:11
--- NOTE | 2021-03-06 00:03 | ED_ITS ---
HPI - General Adult General Chief complaint: Hypertension Stated complaint: Diff breathing Time Seen by Provider: 03/05/21 23:52 Source: patient and EMS Mode of arrival: EMS Limitations: no limitations History of Present Illness HPI narrative: 70M former smoker with history of HTN, hyperlipidemia, DM presents by EMS for evaluation of chief complaint of SOB and pounding headache over the course of the day. He denies fever or chills nor runny nose, cough or chest pain. He denies any recent history of travel, he denies blood clot. He has a squeezing headache and denies any obvious provocation, palliation or rad iation. He states pain is 10/10. He does have some associated blurring of his vision over the course of the day but denies any focal neurologic findings such as numbness, tingling or weakness. He states his short of breath is persistent in the denies any change with exertion or lying flat. Related Data Home Medications Medication Instructions Recorded Confirmed Flovent Diskus 50 mcg INH Q DAY #0 07/05/17 09/02/19 atorvastatin [Lipitor] 40 mg PO BEDTIME #0 07/05/17 09/02/19 cyclobenzaprine 10 mg PO BID #0 07/05/17 09/02/19 fenofibrate 160 mg PO DAILY #0 07/05/17 09/02/19 hydrochlorothiazide 25 mg PO DAILY #0 07/05/17 09/02/19 loratadine [Claritin] 10 mg PO DAILY PRN #0 07/05/17 09/02/19 metoprolol succinate [Toprol XL] 25 mg PO DAILY #0 07/05/17 09/02/19 nifedipine 60 mg PO BID #0 07/05/17 09/02/19 oxycodone [OxyContin] 20 mg PO BID #0 07/05/17 06/29/20 sennosides [senna] 2 tab PO Q DAY #0 07/05/17 06/29/20 docusate calcium 240 mg PO TID 01/20/19 06/29/20 fluticasone propionate 1 spray INTRANASAL DIRECTED 01/20/19 06/29/20 lisinopril 40 mg PO DAILY 01/20/19 09/02/19 metformin 850 mg PO TID 01/20/19 09/02/19 oxycodone-acetaminophen 1 tab PO BID PRN 01/20/19 06/29/20 oxycodone-acetaminophen 1 tab PO Q8H PRN 01/20/19 09/02/19 oxycodone [OxyContin] 10 mg PO BID 09/02/19 06/29/20 Previous Rx's Medication Instructions Recorded pantoprazole 40 mg PO 0600,2100 #60 tab 07/08/17 Allergies Allergy/AdvReac Type Severity Reaction Status Date / Time No Known Allergies Allergy Uncoded 06/29/20 13:33 Review of Systems Constitutional Constitutional: Denies chills, Denies fatigue, Denies fever(s), Denies frequent falls, Reports headache(s), Denies lethargy and Denies weakness Eyes Eyes: Reports change in vision, Denies eye discharge, Denies irritation and Denies loss of vision ENT Ears, Nose, Mouth, and Throat: Denies change in voice, Denies dizziness, Reports headache(s), Denies neck pain, Denies sore throat and Denies throat swelling Cardiovascular Cardiovascular: Denies chest pain, Denies irregular heart rhythm, Denies lightheadedness, Denies palpitations, Reports dyspnea, Denies dyspnea on exertion and Denies orthopnea Respiratory Respiratory: Denies cough, Reports dyspnea, Denies dyspnea on exertion and Denies wheezing Gastrointestinal Gastrointestinal: Denies abdominal pain, Denies change in bowel habits, Denies diarrhea, Denies nausea and Denies vomiting Musculoskeletal Musculoskeletal: Denies neck pain and Denies numbness Integumentary/Breasts Skin/Breast: Denies pruritus, Denies erythema, Denies rash and Denies wounds Neurologic Neurologic: Denies behavioral changes, Denies confusion, Denies dizziness, Denies frequent falls, Reports headache(s), Denies loss of vision, Denies numbness and Denies weakness Psychiatric Psychiatric: Denies anxiety, Denies behavioral changes, Denies confusion, Denies depression, Denies homicidal ideation and Denies suicidal ideation Endocrine Endocrine: Denies fatigue, Denies flushing and Denies palpitations Hematologic/Lymphatic Hematologic/Lymphatic: Denies easy bruising Allergic/Immunologic Allergic/Immunologic: Denies urticaria, Denies throat swelling and Denies wheezing Patient History Family History Other No pertinent family history Social History household members: none Smoking Status: Former smoker Smoking Status: Former smoker alcohol intake frequency: 0-2 drinks per day Substance Use Type: does not use Exam Narrative Exam Narrative: GENERAL: [70] year old patient appears stated age. Well- nourished, well-developed patient, in mild distress. HEAD: Atraumatic. Normocephalic. EYES: Pupils equal round and reactive. Extraocular motions intact. No scleral icterus. No injection or drainage. ENT: Nose without bleeding, purulent drainage. Throat without erythema, tons illar hypertrophy or exudate. Airway patent. NECK: Trachea midline. Non tender CARDIOVASCULAR: Regular rate and rhythm without murmurs, gallops, or rubs. RESPIRATORY: Clear to auscultation. Breath sounds equal bilaterally. No wheezes, rales, or rhonchi. GASTROINTESTINAL: Abdomen soft, non-tender, nondistended. EXTREMITIES: No edema or joint tenderness. BACK: Nontender without deformity or crepitance. No flank tenderness. NEURO: AOx3. SKIN: No rash or erythema of visible areas Initial Vital Signs Initial Vital Signs: Vital Signs Temperature 97.9 F 03/05/21 23:57 Pulse Rate 87 03/05/21 23:57 Respiratory Rate 20 03/05/21 23:57 Blood Pressure 255/110 H 03/05/21 23:57 Pulse Oximetry 100 03/05/21 23:57 Course Orders Ordered: ED Orders 03/05/21 23:56 EKG-12 Lead Stat 03/06/21 00:01 Complete Blood Count AUTO DIFF Stat Comprehensive Metabolic Panel Stat NT-proBNP (BNP-Adult 18+) Stat Prothrombin Time INR Stat Troponin & CK Cardiac Panel Stat 03/06/21 00:03 XR chest 1V Stat 03/06/21 00:39 CT head/brain wo con Stat 03/06/21 01:23 COVID19 - ADMIT ([employer] swab/PCR) Stat Nicardipine HCl 25 mg/ Sodium (Chloride) 250 mls @ 50 mls/hr IV TITRATE CAROL; Protocol Last Admin: 03/06/21 01:29 Dose: 5 mg/hr, 50 mls/hr Documented by: Discontinued Medications Labetalol HCl (Labetalol 20 Mg/4 Ml Syringe) 20 mg IV NOW ONE Stop: 03/06/21 00:03 Last Admin: 03/06/21 00:10 Dose: 20 mg Documented by: HAIDER Reevaluation(s) Reevaluation #1: Patient has been given labetalol 20 mg IV push and blood pressure improves to 218/105. Patient is no longer short of breath and states head pain is down to a 7/10 Reevaluation #2: MILLER and SOB returning, BP back to the 210s/110s. There seems to be very strong temporal relationship relating blood pressure to his symptoms. Given the sensitivity and evidence of end-organ trouble with his blood pressure the patient will be started on a nicardipine drip, admission to the ICU closely following. Patient understands and agrees with the plan Vital Signs Vital signs: Vital Signs - 8 hr 03/05/21 23:57 03/06/21 00:10 03/06/21 00:22 Temperature 97.9 F Pulse Rate 87 93 H 80 Respiratory Rate 20 18 Blood Pressure 255/110 H 255/110 H 218/105 H Pulse Oximetry 100 100 03/06/21 00:39 03/06/21 01:15 Temperature Pulse Rate Respiratory Rate Blood Pressure 205/98 H 210/95 H Pulse Oximetry Medical Decision Making Lab Data Result diagrams: 03/06/21 00:01 03/06/21 00:01 Labs: Lab Results 03/06/21 03/06/21 03/06/21 Range/Units 00:01 00:01 00:01 WBC 6.0 (4.5-11.0) X10^3/uL RBC 5.25 (4.5-5.9) X10^6/uL Hgb 13.1 L (13.5-17.5) g/dL Hct 39.9 L (41-53) % MCV 76.0 L (80-100) fL MCH 24.9 L (26-34) PG MCHC 32.8 (30-36) % RDW 16.2 H (11.6-14.8) % Plt Count 286 (150-400) X10^3/uL Neut % (Auto) 71.8 (50-75) % Lymph % (Auto) 16.4 L (25-40) % [place] % (Auto) 7.4 (3-14) % Eos % (Auto) 3.8 (2-4) % Baso % (Auto) 0.6 (0-2) % Neut # (Auto) 4300 (0300-4993) /uL Lymph # (Auto) 1000 L (2052-1647) /uL [place] # (Auto) 400 (0-900) /uL Eos # (Auto) 200 (0-450) /uL Baso # (Auto) 0 (0-100) /uL PT 13.7 H (10.1-12.7) SECONDS INR 1.2 (0.9-1.3) Sodium 138 (137-145) mmol/L Potassium 3.5 (3.4-5.1) mmol/L Chloride 100 (98-107) mmol/L Carbon Dioxide 29 (22-32) mmol/L BUN 31 H (9-20) mg/dL Creatinine 1.73 H (0.66-1.25) mg/dL Estimated GFR 39.1 L (>60) mL/min BUN/Creatinine Ratio 17.9 (6-22) Glucose 205 H (80-110) mg/dL Calcium 9.2 (8.4-10.2) mg/dL Total Bilirubin 0.3 (0.2-1.3) mg/dL AST 26 (17-59) IU/L ALT 12 (<50) IU/L Alkaline Phosphatase 66 (38-126) U/L Total Creatine Kinase 101 (55-170) U/L CK-MB (CK-2) 1.26 (<2.37) ng/mL CK-MB (CK-2) Rel Index 1.2 L (1.5-5.0) % Troponin I < 0.012 (0.01-0.034) ng/mL NT-Pro-B Natriuret Pep 533 H (<125) pg/mL Total Protein 7.1 (6.3-8.2) g/dL Albumin 4.0 (3.5-5.0) g/dL Globulin 3.1 (1.7-4.1) g/dL Albumin/Globulin Ratio 1.3 (1.0-2.8) Urine Dip Bedside Urine Glucose Negative Bedside Urine Bilirubin - Negative Bedside Urine Ketone - Negative Urine Specific [place] 1.015 Bedside Urine Occult Blood - Negative Bedside Urine pH 7.0 Bedside Urine Protein - Negative Bedside Urine Urobilinogen - Negative Bedside Urine Nitrite - Negative Bedside Urine Leukocytes - Negative Esterase Point of care testing: Urine Dip Bedside Urine Glucose Negative Bedside Urine Bilirubin - Negative Bedside Urine Ketone - Negative Urine Specific [place] 1.015 Bedside Urine Occult Blood - Negative Bedside Urine pH 7.0 Bedside Urine Protein - Negative Bedside Urine Urobilinogen - Negative Bedside Urine Nitrite - Negative Bedside Urine Leukocytes - Negative Esterase Imaging Data Chest x-ray: Radiologist's Impression: NAP CT scan - head: Radiologist's Impression: no acute intracranial pathology ECG Data Attestation: I personally reviewed and interpreted this ECG as follows: Interpretation: EKG is normal sinus rhythm rate [ 92] and free of any signs of ischemia or ectopy. No ST segmental elevation or depression. No T wave inversions Critical Care Time Critical Care Time Critical Care Time: Yes Total Critical Care Time: 30 Attestation: The high probability of a clinically significant, sudden or life threatening deterioration of the [CV] system(s) required my full and direct attention, intervention and personal management. The aggregate critical care time was [30] minutes. This time is in addition to time spent performing reported procedures but includes the following: [x] Data Review and interpretation [x] Patient assessment and monitoring of vital signs [x] Documentation [x] Medication orders and management Discharge Plan Departure Patient Disposition: Admitted As Inpatient Clinical Impression: Hypertensive emergency Headache Qualifiers: Headache type: unspecified Headache chronicity pattern: acute headache Intractability: not intractable Qualified Code(s): R51.9 - Headache, unspecified Admit Date/Time: 03/06/21 01:28 Admit Provider: Marty Sood
[2021-03-06] MEDS: LABETALOL 20 MG/4 ML SYRINGE IV (00:10)
[2021-03-06 00:14] LABS: INR 1.2 (0.9-1.3); Prothrombin Time 13.7 SECONDS (10.1-12.7)
[2021-03-06 00:15] LABS: Add Manual Diff / Slide Review NO; Basophils Absolute Auto 0 /uL (0-100); Basophils Percent Auto 0.6 % (0-2); Eosinophils Absolute Auto 200 /uL (0-450); Eosinophils Percent Auto 3.8 % (2-4); Hematocrit 39.9 % (41-53); Hemoglobin 13.1 g/dL (13.5-17.5); Lymphocytes Absolute Auto 1000 /uL (1100-4500); Lymphocytes Percent Auto 16.4 % (25-40); Mean Corpuscular HGB Conc 32.8 % (30-36); Mean Corpuscular Hemoglobin 24.9 PG (26-34); Monocytes Absolute Auto 400 /uL (0-900); Monocytes Percent Auto 7.4 % (3-14); Neutrophils Absolute Auto 4300 /uL (1500-7000); Neutrophils Percent Auto 71.8 % (50-75); Platelet Count 286 X10^3/uL (150-400); Red Blood Cell Count 5.25 X10^6/uL (4.5-5.9); Red Cell Distribution Width 16.2 % (11.6-14.8)
[2021-03-06 00:18] LABS: Alanine Aminotransferase 12 IU/L (<50); Albumin Globulin Ratio 1.3 (1.0-2.8); Alkaline Phosphatase 66 U/L (38-126); Aspartate Aminotransferase 26 IU/L (17-59); BUN Creatinine Ratio 17.9 (6-22); Bilirubin Total 0.3 mg/dL (0.2-1.3); Blood Urea Nitrogen 31 mg/dL (9-20); Calcium 9.2 mg/dL (8.4-10.2); Carbon Dioxide 29 mmol/L (22-32); Chloride 100 mmol/L (98-107); Creatine Kinase 101 U/L (55-170); Estimated Glomerular Filt Rate 39.1 mL/min (>60); Globulin 3.1 g/dL (1.7-4.1); Glucose 205 mg/dL (80-110); Potassium 3.5 mmol/L (3.4-5.1); Sodium 138 mmol/L (137-145); Total Protein 7.1 g/dL (6.3-8.2)
[2021-03-06 00:30] LABS: NT-proBNP (BNP-Adult 18+) 533 pg/mL (<125); Troponin I < 0.012 ng/mL (0.01-0.034)
[2021-03-06 00:33] LABS: CKMB % Relative Index 1.2 % (1.5-5.0); Creatine Kinase MB 1.26 ng/mL (<2.37); HEMOLYSIS 22 (0-50)
--- NOTE | 2021-03-06 00:39 | DI.CT.S_ITS ---
PROCEDURE: CT HEAD/BRAIN WO CON INDICATIONS: severe MILLER, blood pressure 255 TECHNIQUE: Noncontrast 4.5 mm thick angled axial sections acquired from the foramen magnum to the vertex, with coronal and sagittal reformats. For radiation dose reduction, the following was used: automated exposure control, adjustment of mA and/or kV according to patient size. COMPARISON: None. FINDINGS: Image quality: Excellent. CSF spaces: Basal cisterns are patent. No extra-axial fluid collections. The ventricles are symmetric in size and shape. Brain: No intracranial bleeds or masses. There is cerebral volume loss for age, with resultant ventricular and sulcal prominence. There are periventricular and deep white matter chronic small vessel ischemic changes. There is intracranial internal carotid artery atherosclerosis. Skull and face: Calvarium and visualized facial bones appear intact, without suspicious lesions. Sinuses: Visualized sinuses and mastoids are clear. IMPRESSION: No acute intracranial disease process. Dictated by: Oralia So MD, PhD on 03/06/2021 at 7:56 Approved by: Oralia So MD, PhD on 03/06/2021 at 7:57
[2021-03-06] MEDS: NICARDIPINE 25 MG in SODIUM CHLORIDE 0.9% 240 ML 50 ML IV ×2 (01:29→07:47)
--- NOTE | 2021-03-06 01:35 | PC.NURSE ---
Per Dr Epperson: goal is to keep SBP still around the same elevated range, and DBP around 90s - Want patient asymptomatic with no respiratory distress, MILLER, blurry vision. Etc. His symptoms seemed to subside once DBP was in 90s range.
--- NOTE | 2021-03-06 02:18 | PM.HP.1 ---
History of Present Illness History of Present Illness Date Patient Seen: 03/06/21 Time Patient Seen: 03:01 Chief complaint: Diff breathing Narrative: Mr. Nelson Cedillo this 70-year-old male patient with a past medical history significant for hypertension, hyperlipidemia, dysphagia with tortuous esophagus, Mathias's esophagus, gastric ulcer, non insulin dependent diabetes type 2, chronic pain syndrome and rheumatoid arthritis who presents to the emergency department via EMS chief complaint of shortness of breath and severe pounding headache. The patient was in his usual state health when he went to bed and woke in the morning with a headache. Describes the headache as constantly worsening located bifrontal and temporal, described as constant severe pounding with pain at 810/10 upon arrival to the ER. He denies complaints of photophobia or phonophobia. Patient describes associated shortness of breath and visual blurring. He denies numbness or tingling, nausea vomiting he has had no ataxia. Can think of no trigger and has been under no undue stress. He has had no recent illness, fevers or chills or known COVID-19 exposures. He denies nasal congestion or sore throat. Denies chest pressure, tightness or pain and no palpitations. He has had shortness of breath without coughing or wheezing. He denies epigastric or abdominal pain and has no nausea or vomiting, diarrhea or constipation and no hematemesis, hematochezia or melena. He has a history of BPH, he reports no change in his urinary pattern. Patient is independent in all activities and uses no assistive devices. Upon arrival the ER the patient is afebrile with temperature 97.9?, heart rate of 87, blood pressure 255/110 with respirations of 20 and oxygen saturation 100% on room air. Chest x-ray is taking which finds no acute cardiopulmonary processes, head CT is negative for acute intracranial findings, 12 lead EKG finds sinus rhythm at a rate of 92 without ectopy, left anterior fascicular block, nonspecific T-wave changes. On laboratory analysis he has white count of 6.0, hemoglobin 13.1, hematocrit of 39.9 and platelets of 286. His a PT of 13.7 and INR 1.1. His electrolytes are within normal range. He has a BUN of 31 and creatinine 1.73 with an EGFR of 39.1. His liver functions are all within normal limits he has a total CK of 101, CK-MB of 1.26 for an index of 1.2. His troponin is negative at less than 0.012. His proBNP slightly elevated at 533. In the ER received labetalol 20 mg IV push with a decrease in his headache pain to 7/10 with resolution of shortness of breath. As the patient's blood pressure began to climb again his headache worsened and had re-emergence of his shortness of breath. The patient was started on nicardipine drip for blood pressure control. The patient is admitted to the hospitalist service for hypertensive emergency with end-organ dysfunction. Patient History Medical History (Updated 03/06/21 @ 02:21 by JOHNATHAN Hastings) Barretts esophagus Chronic pain syndrome Diabetes type 2, uncontrolled Dysphagia Essential hypertension Gastric ulcer Hyperlipidemia PTSD (post-traumatic stress disorder) Rheumatoid arthritis Surgical History (Updated 03/06/21 @ 02:21 by JOHNATHAN Hastings) History of esophagogastroduodenoscopy (EGD) Family & Social History Family History (Updated 03/06/21 @ 03:43 by JOHNATHAN Hastings) Father Stroke Mother Stroke Other No pertinent family history Social History: household members none Safety & Behavioral: Feels Safe in Current Yes Environment Tobacco & Substance use: Smoking Status Former smoker alcohol intake frequency 0-2 drinks per day Substance Use Type does not use Meds Home Medications and Allergies Home Medications Medication Instructions Recorded Confirmed Type atorvastatin [Lipitor] 40 mg PO QAM #0 07/05/17 03/06/21 History cyclobenzaprine 10 mg PO BID #0 07/05/17 03/06/21 History fenofibrate 160 mg PO DAILY #0 07/05/17 03/06/21 History hydrochlorothiazide 25 mg PO DAILY #0 07/05/17 03/06/21 History loratadine [Claritin] 10 mg PO DAILY PRN #0 07/05/17 03/06/21 History metoprolol succinate [Toprol XL] 25 mg PO DAILY #0 07/05/17 03/06/21 History nifedipine 60 mg PO BID #0 07/05/17 03/06/21 History oxycodone [OxyContin] 20 mg PO BID #0 07/05/17 03/06/21 History sennosides [senna] 2 tab PO Q DAY #0 07/05/17 03/06/21 History pantoprazole 40 mg PO 0600,2100 #60 tab 07/08/17 03/06/21 Rx docusate calcium 240 mg PO TID 01/20/19 03/06/21 History fluticasone propionate 1 spray INTRANASAL DIRECTED 01/20/19 03/06/21 History lisinopril 40 mg PO DAILY 01/20/19 03/06/21 History oxycodone-acetaminophen 1 tab PO BID PRN 01/20/19 03/06/21 History oxycodone-acetaminophen 1 tab PO Q8H PRN 01/20/19 03/06/21 History oxycodone [OxyContin] 10 mg PO BID 09/02/19 03/06/21 History Allergies Allergy/AdvReac Type Severity Reaction Status Date / Time No Known Allergies Allergy Uncoded 06/29/20 13:33 Review of Systems Review of Systems ROS: Yes All systems reviewed with the patient and are negative except as otherwise documented Exam Vital Signs (past 8 hours): - 03/05/21 23:57 03/06/21 00:10 03/06/21 00:22 Temperature 97.9 F Pulse Rate 87 93 H 80 Respiratory Rate 20 18 Blood Pressure 255/110 H 255/110 H 218/105 H Pulse Oximetry 100 100 03/06/21 00:39 03/06/21 01:15 03/06/21 01:53 Temperature Pulse Rate Respiratory Rate Blood Pressure 205/98 H 210/95 H 185/90 H Pulse Oximetry 03/06/21 01:54 03/06/21 02:06 Temperature Pulse Rate 88 86 Respiratory Rate 18 Blood Pressure 170/80 H Pulse Oximetry 99 Oxygen Delivery Method Room Air Narrative Exam Narrative: GENERAL APPEARANCE: well developed, Obese male with a BMI of 31.9 who is uncomfortable appearing HEENT: Normocephalic, PERRLA, conjunctiva clear, EOMs intact without nystagmus, no sinus tenderness to percussion, no rhinorrhea, mucous membranes are moist and pink. NECK/THYROID: neck supple, no JVD, no carotid bruit, no thyromegaly, trachea midline. LYMPH NODES: no cervical or supraclavicular lymphadenopathy. SKIN: [place], warm and dry, no visible lesions or rashes. HEART: regular rate and rhythm, S1-S2, no murmur, no rubs or gallops, 2+ dorsalis pedis pulses, no edema. LUNGS: clear to auscultation bilaterally, no coarseness crackles or wheezing, no cough present. CHEST: Symmetrical movement, no accessory muscle use, good tidal volume. ABDOMEN: Soft, no distention, no epigastric or abdominal tenderness, no guarding or peritoneal signs, no organomegaly, no flank or suprapubic tenderness, active bowel tones. BACK: Normal curvature, nontender to palpation, no back pain with straight leg raise. EXTREMITIES: moves all extremities, strength is 5/5 and symmetrical, no deformities or joint effusions. NEUROLOGIC: AAO x4, no lateralizing neurologic deficits, cranial nerves II-XII grossly intact, sensation intact to light touch, Mild difficulty hearing. PSYCH: Good eye contact, linear thought process, cooperative, appropriate with stable behavior. Objective Labs Result Diagrams: 03/06/21 00:03/06/21 00:01 Labs: Laboratory Results - last 24 hr 03/06/21 03/06/21 03/06/21 00:01 00:01 00:01 WBC 6.0 RBC 5.25 Hgb 13.1 L Hct 39.9 L MCV 76.0 L MCH 24.9 L MCHC 32.8 RDW 16.2 H Plt Count 286 Neut % (Auto) 71.8 Lymph % (Auto) 16.4 L [place] % (Auto) 7.4 Eos % (Auto) 3.8 Baso % (Auto) 0.6 Neut # (Auto) 4300 Lymph # (Auto) 1000 L [place] # (Auto) 400 Eos # (Auto) 200 Baso # (Auto) 0 PT 13.7 H INR 1.2 Sodium 138 Potassium 3.5 Chloride 100 Carbon Dioxide 29 BUN 31 H Creatinine 1.73 H Estimated GFR 39.1 L BUN/Creatinine Ratio 17.9 Glucose 205 H Calcium 9.2 Total Bilirubin 0.3 AST 26 ALT 12 Alkaline Phosphatase 66 Total Creatine Kinase 101 CK-MB (CK-2) 1.26 CK-MB (CK-2) Rel Index 1.2 L Troponin I < 0.012 NT-Pro-B Natriuret Pep 533 H Total Protein 7.1 Albumin 4.0 Globulin 3.1 Albumin/Globulin Ratio 1.3 Assessment & Plan Assessment & Plan narrative: The patient is a 70-year-old male patient who was a past smoker with a medical history significant for hypertension, hyperlipidemia, dysphagia with tortuous esophagus, Mathias's esophagus, gastric ulcer, non insulin dependent diabetes type 2, chronic pain syndrome and rheumatoid arthritis who presents to the emergency department via EMS chief complaint of shortness of breath and severe pounding frontal/temporal headache. The patient is found to have severe hypertension with blood pressure on admission 255/110 that improves with blood pressure treatment with abatement of symptoms that reoccur as blood pressure again elevates. 1. Acute hypertensive emergency with end-organ involvement with severe headache and shortness of breath, present on admission, active -patient states he woke with this headache described as a constant pounding frontal/temporal pain. The patient denies previous occurrence of severe headaches and cannot identify a trigger. -patient denies chest pain or palpitations, no neck or back pain, head CT was unremarkable with no acute intracranial findings. -patient states he has been compliant with all medications a regular basis. He checks his blood pressure at home daily with readings in the 130s over 70s. -upon arrival to the ER the patient blood pressure 255/110 improving to 176/76 following 20 mg labetalol with marked improvement in headache pain and resolution of shortness of breath. -patient was started on nicardipine drip when his blood pressure began to elevate again over 200s. Goal is to titrate his blood pressure to a SBP of less than 190 and diastolic pressure less than 100. -ordered patient's home regimen of hypertensives including hydrochlorothiazide 25 mg, lisinopril 40 mg daily, nifedipine 60 mg twice daily. -the patient did respond labetalol in the ER will increase metoprolol succinate to 50 mg daily with an additional 25 mg metoprolol tartrate x1 now. 2. Non insulin-dependent diabetes type 2 -serum glucose on admission is 205. -the patient indicates he no longer takes metformin for his diabetes likely related to related to CKD stage 3 and is on no other glycemic control medications. -ordered fingerstick blood sugars a.c. and hs, coverage with low-dose correctional insulin. -ordered hemoglobin A1c. 3. Hyperlipidemia, chronic, stable -continue routine dose of atorvastatin 40 mg daily. -check a lipid panel. 4. Chronic pain syndrome, opioid dependence, secondary to rheumatoid arthritis, chronic, stable -patient with chronic pain secondary to rheumatoid arthritis. -continue current home regimen of pain control with oxycodone 30 mg twice daily and Percocet 5/325 or 10/325 as needed for breakthrough pain. 5. Gastroesophageal reflux disorder with esophagitis, history of Mathias's esophagus and gastric ulcer, chronic, stable. -patient has significant history of gastric problems however reports no GI symptoms, no hematemesis, melena or hematochezia with severe hypertension. -will continue home regimen of pantoprazole 40 mg twice daily. VTE prophylaxis: Enoxaparin IV fluid: Normal saline TKO, nicardipine infusion Diet: Small consistent carbohydrate, heart healthy, 2 g low-sodium Code status: Full code, the patient designates his daughter Marysol to be his surrogate decision maker. The patient is admitted to the hospital due to the severity of his hypertension with end-organ involvement requiring admission to the ICU for vasoactive medication infusion titration and close monitoring. The patient is admitted as an inpatient with expected length of stay to be greater than 2 midnights. Critical care time: 45 minutes COVID-19 COVID-19 status: Negative Result date/Date tested (Pos, Neg/Pending): 03/06/21
[2021-03-06 02:24] LABS: COVID19 - ADMIT (NP swab/PCR) Negative (Negative)
[2021-03-06 03:09] LABS: TSH w/ Reflex to FT4 7.18 uIU/mL (0.47-4.68)
[2021-03-06] MEDS: OXYCODONE IR 10 MG TABLET PO ×6 (03:13→22:37)
[2021-03-06] MEDS: SODIUM CHLORIDE 0.9% 1,000 ML 21 ML IV (03:16)
[2021-03-06 03:38] LABS: Free T4, Direct Thyroxine 1.03 ng/dL (0.78-2.19)
[2021-03-06] MEDS: METOPROLOL IR 25 MG TABLET PO (04:06)
--- NOTE | 2021-03-06 04:15 | PC.ADMIT ---
[email or web address] [facility] Admission Note:Pt arrived to unit without issues. SBA to bed. Pt reports headache and slight SOB returning. 7/10 head pain, decreased to tolerable level with oxycodone. Nicardipine gtt 30ml/hr upon arrival to unit. Increased to 50ml/hr. VO Barrie WHITEWASHER VO of goal to achieve SBP less than 180. WCTM. O2 sats at 100% on room air. Pt has no complaints at this time. The patient,Nelson Goldstein,70 y/o, was given written information regarding hospital policies, unit procedures and contact persons. Patient's smoking status: Former smoker. Vital Signs - 8 hr 03/05/21 23:57 03/06/21 00:10 03/06/21 00:22 Temperature 97.9 F Pulse Rate 87 93 H 80 Respiratory Rate 20 18 Blood Pressure 255/110 H 255/110 H 218/105 H Pulse Oximetry 100 100 03/06/21 00:39 03/06/21 01:15 03/06/21 01:53 Temperature Pulse Rate Respiratory Rate Blood Pressure 205/98 H 210/95 H 185/90 H Pulse Oximetry 03/06/21 01:54 03/06/21 02:06 03/06/21 02:19 Temperature Pulse Rate 88 86 Respiratory Rate 18 Blood Pressure 170/80 H 188/80 H Pulse Oximetry 99 03/06/21 02:47 03/06/21 02:48 03/06/21 02:55 Temperature Pulse Rate 93 H 93 H 90 Respiratory Rate 11 L 16 14 Blood Pressure 207/91 H 197/93 H Pulse Oximetry 99 100 100 03/06/21 02:58 03/06/21 03:00 03/06/21 03:01 Temperature 97.4 F L Pulse Rate 90 93 H 91 H Respiratory Rate 13 19 14 Blood Pressure 207/91 H 193/87 H Pulse Oximetry 100 100 100 03/06/21 03:06 03/06/21 03:16 03/06/21 03:29 Temperature Pulse Rate 91 H 88 95 H Respiratory Rate 20 19 16 Blood Pressure 186/87 H 182/85 H 191/95 H Pulse Oximetry 100 100 100 03/06/21 03:30 03/06/21 04:00 03/06/21 04:06 Temperature Pulse Rate 95 H 90 91 H Respiratory Rate 15 12 18 Blood Pressure 191/95 H 187/84 H Pulse Oximetry 100 97 98
--- NOTE | 2021-03-06 04:48 | PC.NURSE ---
Addendum entered by Samia Mckeon R.N. 03/06/21 06:47: Barrie MANN at [facility], notified of recent blood pressure and decrease in gtt. Entered in error 05 dose of nicardipine gtt. Addendum entered by Samia Mckeon R.N. 03/06/21 04:49: Pt resting in bed. No complaints. No pain at this time Original Note: Notified Barrie MANN of recent blood pressure of 163/71. Okay to leave gtt off and restart if systolic blood pressure above 180
[2021-03-06 05:30] LABS: Blood Urea Nitrogen 27 mg/dL (9-20); Calcium 9.3 mg/dL (8.4-10.2); Carbon Dioxide 29 mmol/L (22-32); Chloride 101 mmol/L (98-107); Estimated Glomerular Filt Rate 43.1 mL/min (>60); Glucose 205 mg/dL (80-110); HEMOLYSIS < 15 (0-50); Potassium 4.1 mmol/L (3.4-5.1); Sodium 137 mmol/L (137-145)
[2021-03-06] MEDS: PANTOPRAZOLE 40 MG TABLET PO ×2 (05:30→22:38)
[2021-03-06 05:37] LABS: Hemoglobin A1C% w Est Avg Glu 6.8 % (4.0-6.0)
[2021-03-06] MEDS: INSULIN ASPART 100 UNIT/ML INSULN PEN SUBCUT ×3 (08:08→17:04)
[2021-03-06] MEDS: ENOXAPARIN 40 MG/0.4 ML SYRINGE SUBCUT (08:08)
[2021-03-06] MEDS: DOCUSATE 250 MG CAPSULE PO ×2 (08:09→14:11)
[2021-03-06] MEDS: hydroCHLOROthiazide 25 MG TABLET PO (08:09)
[2021-03-06] MEDS: lisinopriL 20 MG TABLET 40 MG PO (08:09)
[2021-03-06] MEDS: NIFEdipine 30 MG TAB ER 60 MG PO ×2 (08:09→19:23)
[2021-03-06] MEDS: METOPROLOL ER 25 MG TABLET PO (08:09)
[2021-03-06] MEDS: OXYCODONE ER 10 MG TAB 30 MG PO ×2 (08:16→19:23)
--- NOTE | 2021-03-06 11:45 | ED.CALLS ---
Discharge planning: Patient is 70 yo male with Medicare and for life insurance. Patient presents to hospital with complaint of shortness of breath and pounding headache. Patient is currently in the ICU being closely monitored. Patient has high BP and is on nicardipine drip for blood pressure control placement coordinator met with patient and bedside and described role. Patient is A/Ox4, patient presents sitting upright in chair. Patient states that he lives alone in [place] and his daughter Marysol lives in [place] as well. Patient reports that his daughter is in [place] and is flying back today. Patient reports that he has friends and family locally that he visits with frequently and they are informed that he is currently in the hospital. Patient reports that his daughter is in charge of his medical decisions as needed, patient states that he has a living will and it is on file with . Plan: [employer] to follow for likely d/c when BP is stable, follow for any further needs. JEAN CLAUDE Aquino Discharge Planning/Care Management CM Discharge Assessment Start: 03/06/21 11:38 Freq: Status: Active Protocol: Document 03/06/21 11:39 LN (Rec: 03/06/21 11:45 LN [id number]) Discharge Planning Assessment Assigned Patient Office Rep JEAN CLAUDE Aquino Advance Directives? Yes History Provided By Patient Has Patient been admitted in last 30 No days? Prior Living Arrangements House Household Members none Type of transporation used prior to Drives own vehicle admit Independent with ADL's Yes Is patient alert and oriented? Yes Please Provide Date Initial DC 03/06/21 Assessment Was Performed
[2021-03-06] MEDS: NICARDIPINE 25 MG in SODIUM CHLORIDE 0.9% 240 ML 75 ML IV (12:00)
--- NOTE | 2021-03-06 13:12 | DI.CT.S_ITS ---
PROCEDURE: CT ANGIO CHEST ABDOMEN PELVIS INDICATIONS: hypertensive emergency, c/o upper back pain r/o dissection TECHNIQUE: Precontrast 5 mm thick sections acquired from the lung apices to the iliac crests. After the administration of intravenous contrast, 2.5 mm thick sections again acquired from the lung apices to the iliac crests. Maximum intensity projection (MIP) oblique sagittal and coronal reformats were then acquired. For radiation dose reduction, the following was used: automated exposure control. COMPARISON: [facility], [place], US RENAL, 01/14/2017, 12:17. [facility], CT, KIDNEY/ URETER/BLADDER, 07/05/2017, 19:36. [facility], [place], ABD AORTA ANEURYSM SCREENING, 03/05/2018, 9:14. FINDINGS: Image quality: Excellent. AORTA: The aorta is normal in caliber. There is no penetrating atheromatous ulcer or dissection. There is atherosclerotic plaque and calcification throughout the aorta, both in the thoracic and abdominal segments, without hemodynamically significant stenosis. Mild atherosclerotic calcifications are present at the origins of the arch branch vessels, the major abdominal visceral branches, and in the iliac arteries. CHEST: Lungs and pleura: No acute airspace opacity. Central airways and pleural spaces are clear. Mediastinum: Normal heart size. Four-vessel coronary atherosclerosis. No pericardial effusion. Normal caliber main pulmonary trunk without central filling defect. No threshold enlarged mediastinal or hilar lymph node. Bones and chest wall: No acute or suspicious osseous lesion in the chest wall. No threshold enlarged axillary lymph node. ABDOMEN: Vasculature: The major visceral branches of the aorta are patent. Solid organs: Mildly distended appearance of the gallbladder with tiny hyperdensities layering dependently may be representing small stones or sludge. There is a questionable abnormal masslike appearance to the anterior right upper pole kidney. This is similar in size to the unenhanced CT obtained 07/05/2017, although remains indeterminate and mildly suspicious. There is otherwise no acute finding or discrete mass of the solid abdominal visceral structures. No hydronephrosis Peritoneum and bowel: No free fluid or air. Bowel loops are normal in caliber and wall thickness. Nodes and vessels: No retroperitoneal or mesenteric adenopathy by size criteria. Inferior vena cava is normal in morphology. Miscellaneous: No ventral hernias. PELVIS: Genitourinary: Bladder wall thickness is normal. Miscellaneous: No inguinal hernias or adenopathy. No ventral hernias. Bones: No suspicious bony lesions. No vertebral body compression fractures. IMPRESSION: No acute aortic abnormality. Mildly distended gallbladder with tiny dependently layering hyperdensities which may represents sludge or stones. Consider gallbladder ultrasound in addition to clinical correlation for potential cholecystitis. Questionable mildly suspicious masslike appearance of the anterior right upper pole kidney. Renal protocol CT is recommended on a nonemergent outpatient basis. Dictated by: Ashish Suh M.D. on 03/06/2021 at 13:18 Approved by: Ashish Suh M.D. on 03/06/2021 at 13:28
--- NOTE | 2021-03-06 13:13 | DIET.PN ---
Dietary Progress Note Assessment: Mr. Nelson Cedillo is a 70-year-old male with a past medical history significant for hypertension, hyperlipidemia, dysphagia, Mathias's esophagus, gastric ulcer, non insulin dependent diabetes type 2, chronic pain syndrome and rheumatoid arthritis who presents to the emergency department with chief complaint of shortness of breath and severe pounding headache. He reports reduced appetite, but generally controls diabetes through a carb consistent diet. HT: 177.8cm WT: 101kg UBW: no change BMI: 31.9 Labs: A1c: 6.8 MNA: 12 Geovanni: na Nutrition Diagnosis: Altered Nutrition related labs related to endocrine dysfunction, impaired glucose metabolism, lack of previous exposure to accurate nutrition information as evidenced by pt report, dx of diabetes, previous diet high in refined carbohydrates.? Interventions: 1. Discussed pathophysiology of diabetes. Reviewed A1c and its correlation to blood glucose numbers. Discussed recommended BG ranges. 2. Discussed importance of self-monitoring, how often, and when to check. 3. Discussed impact of nutrition/diet on blood sugar control.? Discussed fed versus non-fed state.? 4. Discussed the effect of carbohydrates/protein/fat on blood sugar control.? Stressed importance of consistent carbohydrate intake at each meal and provided instructions for recommended servings/portions of carbohydrates/protein per meal. Provided pt with educational material. 5. Reviewed carbohydrate counting and measuring carbohydrate content via serving sizes and reading nutrition labels.? Provided handouts.?? ? 6. Discussed healthy weight loss through diet and exercise to increase lean muscle mass.? Pt agreeable to walking daily. Diet Order: heart healthy; CCD EER: 2000cal (20cal/kg) ; 100-120g Pro (1-1.2) Monitoring/Evaluations: PO's, weight, labs, diet consistency tolerance. Pt interested in outpatient diabetes education program. Will follow up with PCP.
[2021-03-06] MEDS: LABETALOL 200 MG in SODIUM CHLORIDE 0.9% 160 ML 60 ML IV (13:40)
--- NOTE | 2021-03-06 14:39 | PC.NURSE ---
Day Shift Note Pt on nicardipine gtt for majority of shift, titrated up to 7.5 mg/hr, SBP remaining 180-200s, received PO antihypertensives as ordered in the AM. SR except for incidence of a 6 beat run of narrow complex tachycardia at 1206 which was self-limiting and reported to Dr. Peck. Persistent HTN reported to Dr. Peck as well and order received to switch to a labetalol gtt. Labetalol gtt started at 1 mg/min at 1340 and increased to 2 mg/min at 1430. Last BP 192/91. Pt reporting pain to shoulders and upper back, greater to left, at 9/10 throughout shift with improvement to 5/10 after oxycodone administration. This afternoon reported increase to 9 or 10 out of 10, increasingly restless, no further pain meds available and MD notified. Order received for CT scan which was completed and also for additional pain meds which were administered. Currently resting in bed, call light within reach.
[2021-03-06] MEDS: LABETALOL 100 MG in SODIUM CHLORIDE 0.9% 80 ML 60 ML IV (16:51)
--- NOTE | 2021-03-06 18:40 | PC.NURSE ---
Addendum entered by Jagruti Jenkins R.N. 03/06/21 23:22: BP checked at end of shift, elevated to 171/78 P-60. Pt had been having increased pain and medicated with Oxycodone, will recheck BP. Update to Woody BAILEY Addendum entered by Jagruti Jenkins R.N. 03/06/21 20:35: Labetolol gtt completed @ 1900, Pt has had stable BP checks, continues at 140's/70's with report of no MILLER at this time. Back pain continues and rating 6/10 at present. PRN oxycodone and scheduled oxycontin given per Emar. HR NSR 60-70's Original Note: PM shift Pt continues on Labatolol gtt, infusing @ 1mg/min. BP labile, 170 SBP- 155 SBP, with goal to be below 180. Completed 300 mg drip and continuing on hourly BP checks. Pt feels pain is better controlled, but still present. Reports MILLER persistant but manageable at 3/10. Reporting resolving blurry vision, that is about 75%, probably wouldn't drive this blurry Using call light for needs.
[2021-03-06] MEDS: METOPROLOL ER 25 MG TABLET 50 MG PO (20:33)
[2021-03-06] MEDS: ATORVASTATIN 20 MG TABLET 40 MG PO (20:33)
[2021-03-07] VITALS (9 sets, daily range): BP systolic 177–228; BP diastolic 74–98; PULSE 64–187; RESP 16–20; TEMP 36.2–36.6; O2SAT 99–100
--- NOTE | 2021-03-07 02:15 | PC.NURSE ---
0200- Blood pressure check initially high see charting, repeat acceptable. Patient states he has no pain and denies having a headache. Will monitor.
[2021-03-07] MEDS: PANTOPRAZOLE 40 MG TABLET PO (06:08)
[2021-03-07] MEDS: OXYCODONE IR 10 MG TABLET PO ×4 (06:17→15:02)
[2021-03-07] MEDS: ENOXAPARIN 40 MG/0.4 ML SYRINGE SUBCUT (08:11)
[2021-03-07] MEDS: OXYCODONE ER 10 MG TAB 30 MG PO (08:11)
[2021-03-07] MEDS: INSULIN ASPART 100 UNIT/ML INSULN PEN SUBCUT ×3 (08:11→17:43)
[2021-03-07] MEDS: hydroCHLOROthiazide 25 MG TABLET PO (08:12)
[2021-03-07] MEDS: lisinopriL 20 MG TABLET 40 MG PO (08:12)
[2021-03-07] MEDS: METOPROLOL ER 25 MG TABLET 50 MG PO (08:12)
[2021-03-07] MEDS: NIFEdipine 30 MG TAB ER 60 MG PO (08:13)
[2021-03-07] MEDS: LABETALOL 100 MG TABLET PO (09:13)
[2021-03-07 09:54] LABS: BUN Creatinine Ratio 14.9 (6-22); Blood Urea Nitrogen 23 mg/dL (9-20); Calcium 9.5 mg/dL (8.4-10.2); Carbon Dioxide 29 mmol/L (22-32); Chloride 99 mmol/L (98-107); Estimated Glomerular Filt Rate 44.6 mL/min (>60); Glucose 209 mg/dL (80-110); HEMOLYSIS < 15 (0-50); Potassium 3.5 mmol/L (3.4-5.1); Sodium 136 mmol/L (137-145)
[2021-03-07] MEDS: DOCUSATE 250 MG CAPSULE PO (12:19)
[2021-03-07] MEDS: CHLORTHALIDONE 25 MG TABLET PO (12:20)
--- NOTE | 2021-03-07 14:40 | PC.NURSE ---
Addendum entered by Allie Almanza R.N. 03/07/21 15:05: Clonidine PO administered per MD order, notify if BP remains elevated in 2 hours. Addendum entered by Allie Almanza R.N. 03/07/21 14:52: Latest BP 209/90, MD notified and states he will review and enter additional orders. Original Note: Day Shift Note SBP in the 200s this shift (see VS trends), MD aware. PRN hydralazine not administered per MD request in order to assess effectiveness of PO antihypertensives. Pt denies any pain in back or head, reports feeling great today. Call light within reach, using appropriately to make needs known.
[2021-03-07] MEDS: cloNIDine 0.1 MG TABLET PO (15:02)
--- NOTE | 2021-03-07 15:31 | CM.DPC ---
DCP Note: Patient is to d/c home when BP is at a stable level and patient is medically stable. Patient reports his friend will pick him up at d/c and that his daughter is in [place] as well. JEAN CLAUDE Aquino
--- NOTE | 2021-03-07 19:04 | PC.NURSE ---
Patient being discharged home with daughter. Discharge instructions given, including information about two new medications sent to [facility] in [place]. Patient has a follow up appointment with PCP on Saturday already. No tele, IV removed. Patient is eager to go home and has no questions or concerns about being discharged.
--- NOTE | 2021-03-07 21:45 | P.DS_ITS ---
History of Present Illness History of Present Illness Chief complaint: Diff breathing Narrative: David Ferguson Barrie Mabry P on 03/06: Mr. Nelson Cedillo this 70-year-old male patient with a past medical history significant for hypertension, hyperlipidemia, dysphagia with tortuous esophagus, Mathias's esophagus, gastric ulcer, non insulin dependent diabetes type 2, chronic pain syndrome and rheumatoid arthritis who presents to the emergency department via EMS chief complaint of shortness of breath and severe pounding headache. The patient was in his usual state health when he went to bed and woke in the morning with a headache. Describes the headache as constantly worsening located bifrontal and temporal, described as constant severe pounding with pain at 810/10 upon arrival to the ER. He denies co mplaints of photophobia or phonophobia. Patient describes associated shortness of breath and visual blurring. He denies numbness or tingling, nausea vomiting he has had no ataxia. Can think of no trigger and has been under no undue stress. He has had no recent illness, fevers or chills or known COVID-19 exposures. He denies nasal congestion or sore throat. Denies chest pressure, tightness or pain and no palpitations. He has had shortness of breath without coughing or wheezing. He denies epigastric or abdominal pain and has no nausea or vomiting, diarrhea or constipation and no hematemesis, hematochezia or melena. He has a history of BPH, he reports no change in his urinary pattern. Patient is independent in all activities and uses no assistive devices. Upon arrival the ER the patient is afebrile with temperature 97.9?, heart rate of 87, blood pressure 255/110 with respirations of 20 and oxygen saturation 100% on room air. Chest x-ray is taking which finds no acute cardiopulmonary processes, head CT is negative for acute intracranial findings, 12 lead EKG finds sinus rhythm at a rate of 92 without ectopy, left anterior fascicular block, nonspecific T-wave changes. On laboratory analysis he has white count of 6.0, hemoglobin 13.1, hematocrit of 39.9 and platelets of 286. His a PT of 13.7 and INR 1.1. His electrolytes are within normal range. He has a BUN of 31 and creatinine 1.73 with an EGFR of 39.1. His liver functions are all within normal limits he has a total CK of 101, CK-MB of 1.26 for an index of 1.2. His troponin is negative at less than 0.012. His proBNP slightly elevated at 533. In the ER received labetalol 20 mg IV push with a decrease in his headache pain to 7/10 with resolution of shortness of breath. As the patient's blood pressure began to climb again his headache worsened and had re-emergence of his shortness of breath. The patient was started on nicardipine drip for blood pressure control. The patient is admitted to the hospitalist service for hypertensive emergency with end-organ dysfunction. Discharge Providers Provider Date of admission: 03/06/21 01:28 Discharge Date: 03/07/21 Primary care physician: Kristopher Espinoza MD Consults: 03/06/21 02:30 Consult to Dietitian, Adult Routine Comment: Reason For Exam: NIDDM type 2, hyperglycemia Discharge provider: Willie Escobar MD Summary Hospital Course Discharge Diagnosis: 1. Acute hypertensive emergency with end-organ involvement, headache, shortness of breath 2. Type 2 diabetes 3. Hyperlipidemia 4. Chronic pain syndrome secondary to rheumatoid arthritis 5. GERD 6. Elevated creatinine, likely CKD stage 3 7. Questionable mass on R kidney Hospital Course: Mr. Goldstein came in to the hospital with initial blood pressure of 255/110. His baseline is in the 140s/70s. He recently had a medication stopped, but is unclear which medication. He denies missing any medications. He had a brief nicardipine drip which improved his blood pressures, and also improved with IV labetalol. With restarting his home medications, his blood pressure again increased over systolic 200s, though he remained asymptomatic. He was switched from metoprolol to labetalol, and from HCTZ to chlorthalidone for better blood pressure control. His blood pressure did improve to systolic of 180s, and he was asymptomatic and requesting discharge. His creatinine was mildly elevated at 1.5-1.6. He previously has creatinine ranging from 1.2-1.7, so it is likely this is related to CKD stage 3. He has known diabetes but is off medications, previously on metformin but stopped due to elevated creatinine. His other medical issues were stable in the hospital. He needs close follow up with his PCP to further titrate his blood pressure medications. Possible consideration of secondary causes of hypertension could be evaluated. Of note he did have notice on CT of abdomen a questionable mildly suspicious masslike appearance of the anterior right upper pole of his kidney. He is recommended to get dedicated CT with renal protocol as an outpatient. Status at Discharge Cognitive/behavioral status at discharge: oriented Functional status at discharge: independent ambulation Overall status at discharge: patient is progressing back to baseline Time Spent with Patient Time spent: Greater than 30 minutes Exam Vital Signs (past 8 hours): - 03/07/21 14:48 03/07/21 16:18 03/07/21 18:24 Temperature 97.1 F L Pulse Rate 72 67 187 H Respiratory Rate 17 20 Blood Pressure 209/90 H 197/89 H Pulse Oximetry 99 Oxygen Delivery Method Room Air Oxygen Flow Rate 0 Narrative Exam Narrative: GENERAL APPEARANCE: well developed, Obese male with a BMI of 31.9 who is uncomfortable appearing HEENT: Normocephalic, PERRLA, conjunctiva clear, EOMs intact without nystagmus, mucous membranes are moist and pink. SKIN: [place], warm and dry, no visible lesions or rashes. HEART: regular rate and rhythm, S1-S2, no murmur, no rubs or gallops, 2+ dorsali s pedis pulses, no edema. LUNGS: clear to auscultation bilaterally, no coarseness crackles or wheezing, no cough present. ABDOMEN: Soft, no distention, no epigastric or abdominal tenderness, no guard ing or peritoneal signs, no organomegaly, no flank or suprapubic tenderness, active bowel tones. BACK: Normal curvature, nontender to palpation, no back pain with straight leg raise. EXTREMITIES: moves all extremities, strength is 5/5 and symmetrical, no deformities or joint effusions. NEUROLOGIC: AAO x4, no lateralizing neurologic deficits, cranial nerves II-XII grossly intact, sensation intact to light touch PSYCH: pleasant mood Objective Labs Result Diagrams: 03/06/21 00:01 03/07/21 09:20 Labs: Laboratory Results - last 24 hr 03/07/21 09:20 Sodium 136 L Potassium 3.5 Chloride 99 Carbon Dioxide 29 BUN 23 H Creatinine 1.54 H Estimated GFR 44.6 L BUN/Creatinine Ratio 14.9 Glucose 209 H Calcium 9.5 PFSH Medical History (Updated 03/06/21 @ 02:21 by JOHNATHAN Hastings) Barretts esophagus Chronic pain syndrome Diabetes type 2, uncontrolled Dysphagia Essential hypertension Gastric ulcer Hyperlipidemia PTSD (post-traumatic stress disorder) Rheumatoid arthritis Surgical History (Updated 03/06/21 @ 02:21 by JOHNATHAN Hastings) History of esophagogastroduodenoscopy (EGD) Family History (Updated 03/06/21 @ 03:43 by JOHNATHAN Hastings) Father Stroke Mother Stroke Other No pertinent family history Social History household members: none Smoking Status: Former smoker Discharge Plan Discharge Plan Patient Disposition: Home Provider Discharge Comment: Mr. Goldstein came to the hospital with high blood pressure. He initially had blood pressure over systolic 200s with shortness of breath and headache. This improved with lowering blood pressure, most effectively with IV labetalol drip. He was difficult to control with his blood pressure. He was switched from metoprolol to labetalol, and from HCTZ to chlorthalidone. On day of discharge he still had high blood pressure but improving, and no further symptoms. He was requesting to be discharged. He will need close follow up as an outpatient with his PCP within one week, and need possible workup for secondary causes of refractory hypertension. Discharge orders & Medications Prescriptions: New chlorthalidone 25 mg Tablet 25 mg PO DAILY Qty: 30 RF: 0 labetalol 100 mg Tablet 100 mg PO BID Qty: 60 RF: 0 Continued nifedipine 60 MG tablet extended release 24hr 60 mg PO BID Qty: 0 RF: 0 cyclobenzaprine 10 MG tablet 10 mg PO BID Qty: 0 RF: 0 atorvastatin [Lipitor] 40 MG tablet 40 mg PO QAM Qty: 0 RF: 0 fenofibrate 160 MG tablet 160 mg PO DAILY Qty: 0 RF: 0 sennosides [senna] 8.6 MG tablet 2 tab PO Q DAY Qty: 0 RF: 0 loratadine [Claritin] 10 MG tablet 10 mg PO DAILY PRN (Reason: Allergy Symptoms) Qty: 0 RF: 0 pantoprazole 40 MG tablet,delayed release (DR/EC) 40 mg PO 0600,2100 Qty: 60 RF: 0 oxycodone [OxyContin] 10 mg Tablet,Oral Only,Ext.Rel.12 Hr 10 mg PO BID RF: 0 docusate calcium 240 mg capsule 240 mg PO TID RF: 0 oxycodone-acetaminophen 5-325 mg tablet 1 tab PO BID PRN (Reason: pain) RF: 0 oxycodone-acetaminophen 10-325 mg tablet 1 tab PO Q8H PRN (Reason: pain) RF: 0 lisinopril 40 mg tablet 40 mg PO DAILY RF: 0 fluticasone propionate 50 mcg/actuation spray,suspension 1 spray Intranasal DIRECTED RF: 0 Discontinued hydrochlorothiazide 25 MG tablet 25 mg PO DAILY Qty: 0 RF: 0 metoprolol succinate [Toprol XL] 25 MG tablet extended release 24 hr 25 mg PO DAILY Qty: 0 RF: 0 oxycodone [OxyContin] 20 MG tablet,oral only,ext.rel.12 hr 20 mg PO BID Qty: 0 RF: 0 Follow up/Referrals: Kristopher Espinoza MD [Primary Care Provider] - Diet/Activity/Treatments Diet: Low-sodium Discharge Data Primary Care Provider: Kristopher Espinoza
== END 2021-03-07 19:17 | disposition home or self-care (01) | DRG 305 ==
LOC: ED 03-06 01:28 → AC 03-06 01:29 → ICU 03-06 02:46
PROVIDERS: Internal Medicine; Admitting Provider Nurse Practitioner Adult Health; Emergency Provider Emergency Medicine; Family Provider Internal Medicine; PCP Internal Medicine; Referring Provider Emergency Medicine; Visit Provider Nurse Practitioner Adult Health
DX: I16.1 Hypertensive emergency (principal); R51.9 Headache, unspecified; E78.5 Hyperlipidemia, unspecified; E11.9 Type 2 diabetes mellitus without complications; G89.4 Chronic pain syndrome; M06.9 Rheumatoid arthritis, unspecified; K22.70 Barrett's esophagus without dysplasia; K21.9 Gastro-esophageal reflux disease without esophagitis; Z79.891 Long term (current) use of opiate analgesic; Z20.822 Contact with and (suspected) exposure to COVID-19; R06.02 Shortness of breath; N18.30 Chronic kidney disease, stage 3 unspecified; N28.89 Other specified disorders of kidney and ureter
CPT/HCPCS: 36415; 70450; 71045; 71275; 74174; 80048; 80053; 81003; 82550; 82553; 82962; 83036; 83735; 83880; 84439; 84443; 84484; 85025; 85610; 87635; 87797; 93005; 96365; 96375; 99284; 99291; 99292; J1650; Q9967

== ENCOUNTER → 2021-04-13 10:36 | Outpatient (CLI) | payer MEDICARE, OTHER, SELFPAY ==
[2021-03-06 03:07] VITALS: BMI 31.9
--- NOTE | 2021-04-13 | DI.CT.S_ITS ---
PROCEDURE: CT ABDOMEN WO/W CON INDICATIONS: Other specified disorders of kidney and ureter TECHNIQUE: Optional 5 mm thick noncontrast images acquired from the diaphragm to the iliac crests. After the administration of intravenous contrast, 5 mm thick images again acquired from the diaphragm to the iliac crests in the arterial and urographic phases. 5 mm thick coronal and sagittal reformats were then acquired. For radiation dose reduction, the following was used: automated exposure control, adjustment of mA and/or kV according to patient size. COMPARISON: [facility], CT, CT ANGIO CHEST PE, 01/13/2017, 20:24. [facility], CT, KIDNEY/ URETER/BLADDER, 07/05/2017, 19:36. [facility], CT, CT ANGIO CHEST ABDOMEN PELVIS, 03/06/2021, 13:02. FINDINGS: Image quality: Excellent. Lung bases: Lung bases are clear. Heart size is normal. Small hiatal hernia. Genitourinary: There is a lobulated contour involving the anterior cortex of the superior pole of the right kidney with morphology suggesting a prominent column of Brady. A 1 cm low-density nodule is noted in the area. The overall appearance is unchanged since 07/05/2017. Mild renal cortical thinning bilaterally. No renal stone or hydronephrosis. Other solid organs: Liver is normal in size and enhancement. Gallbladder is normal. Biliary system is non dilated. Pancreas enhances normally. Spleen is mildly enlarged. No adrenal nodules. Peritoneum and bowel: Unenhanced bowel loops are normal in wall thickness and caliber. No free fluid or air. Nodes and vessels: No retroperitoneal or mesenteric adenopathy by size criteria. Aorta and inferior vena cava are normal in caliber. Bones: No suspicious bony lesions. No vertebral body compression fractures. Miscellaneous: No ventral hernias. IMPRESSION: 1. No renal mass is identified. Lobulated contour involving the anterior cortex of the superior pole of the right kidney has a similar appearance 1 compared to a prior CT dated 07/05/2017. Stability suggests benign etiology. A 1 cm low-density nodule is noted within the area, most likely a renal cyst. 2. Splenomegaly. Dictated by: Dax Reyes M.D. on 04/13/2021 at 11:30 Approved by: Dax Reyes M.D. on 04/13/2021 at 13:15
== END ==
PROVIDERS: Family Provider Internal Medicine; PCP Internal Medicine; Referring Provider Physician Assistant; Visit Provider Physician Assistant
DX: N28.89 Other specified disorders of kidney and ureter (principal); R16.1 Splenomegaly, not elsewhere classified
CPT/HCPCS: 74170

== ENCOUNTER 2021-06-27 10:49 | Emergency (ER) | payer MEDICARE, OTHER, SELFPAY ==
[2021-03-06 03:07] VITALS: BMI 31.9
[2021-06-27] VITALS (18 sets, daily range): BP systolic 172–200; BP diastolic 81–107; PULSE 77–92; RESP 13–24; TEMP 36.3; O2SAT 93–100; BMI 35.2
--- NOTE | 2021-06-27 11:05 | DI.CT.S_ITS ---
PROCEDURE: CT HEAD/BRAIN WO CON INDICATIONS: extremity numbness TECHNIQUE: Noncontrast 4.5 mm thick angled axial sections acquired from the foramen magnum to the vertex, with coronal and sagittal reformats. For radiation dose reduction, the following was used: automated exposure control, adjustment of mA and/or kV according to patient size. COMPARISON: [facility], CT, CT HEAD/BRAIN WO CON, 03/06/2021, 0:47. FINDINGS: Image quality: Excellent. CSF spaces: Basal cisterns are patent. No extra-axial fluid collections. The ventricles are symmetric in size and shape. Brain: No intracranial bleeds or masses. There is cerebral volume loss for age, with resultant ventricular and sulcal prominence. There are periventricular and deep white matter chronic small vessel ischemic changes. There is intracranial internal carotid artery atherosclerosis. Skull and face: Calvarium and visualized facial bones appear intact, without suspicious lesions. Sinuses: Visualized sinuses and mastoids are clear. IMPRESSION: Source of extremity numbness is not found, follow-up MR scanning may be warranted. Dictated by: Barrie Joseph M.D. on 06/27/2021 at 12:10 Approved by: Barrie Joseph M.D. on 06/27/2021 at 12:11
--- NOTE | 2021-06-27 11:07 | ED.NEUROSD ---
HPI - Neuro Symptoms/Deficit General Chief Complaint: Neuro Symptoms/Deficit Stated Complaint: Numbness tingling in all extremities Time Seen by Provider: 06/27/21 10:52 Source: patient Mode of arrival: EMS Limitations: no limitations History of Present Illness HPI Narrative: 71M former smoker with history of HTN, hyperlipidemia, DM presents by EMS for evaluation of chief complaint of tingling of all 4 of his extremities. It started with some tingling in his right leg over the course of the night and over the course of this morning has progressed to all 4 extremities. He denies other symptoms such as dizziness, weakness or lightheadedness. He has had no chest pain or trouble breathing. He denies any blurred vision or trouble with site. He has had no trouble forming thoughts or with slurring of words. He has no trouble ambulating and states that he does not have weakness and extremities just tingling. He denies any dietary change but did just start labetalol for blood pressure control 2 days ago. He has had no nausea, vomiting or diarrhea. He denies any difficulty with urination such as dysuria, frequency or urgency On Anticoagulants: No Related Data Home Medications Medication Instructions Recorded Confirmed atorvastatin 40 mg tablet (Lipitor) 40 mg PO QAM #0 07/05/17 03/06/21 cyclobenzaprine 10 mg tablet 10 mg PO BID #0 07/05/17 03/06/21 fenofibrate 160 mg tablet 160 mg PO DAILY #0 07/05/17 03/06/21 loratadine 10 mg tablet (Claritin) 10 mg PO DAILY PRN #0 07/05/17 03/06/21 nifedipine 60 mg tablet,extended 60 mg PO BID #0 07/05/17 03/06/21 release 24 hr sennosides 8.6 mg tablet (senna) 2 tab PO Q DAY #0 07/05/17 03/06/21 docusate calcium 240 mg capsule 240 mg PO TID 01/20/19 03/06/21 fluticasone propionate 50 1 spray INTRANASAL DIRECTED 01/20/19 03/06/21 mcg/actuation nasal spray,suspension lisinopril 40 mg tablet 40 mg PO DAILY 01/20/19 03/06/21 oxycodone-acetaminophen 10 mg-325 1 tab PO Q8H PRN 01/20/19 03/06/21 mg tablet oxycodone-acetaminophen 5 mg-325 1 tab PO BID PRN 01/20/19 03/06/21 mg tablet oxycodone 10 mg tablet,crush 10 mg PO BID 09/02/19 03/06/21 resistant,extended release 12 hr (OxyContin) Previous Rx's Medication Instructions Recorded pantoprazole 40 mg tablet,delayed 40 mg PO 0600,2100 #60 tab 07/08/17 release chlorthalidone 25 mg tablet 25 mg PO DAILY #30 tab 03/07/21 labetalol 100 mg tablet 100 mg PO BID #60 tab 03/07/21 Allergies Allergy/AdvReac Type Severity Reaction Status Date / Time No Known Allergies Allergy Verified 06/27/21 11:00 Review of Systems Review of Systems Narrative: GENERAL: Denies chills, fatigue, malaise, fever, sweats. HEENT: Denies sinus pain, ear pain, sore throat, difficulty swallowing, dizziness. RESPIRATORY: Denies dyspnea, cough, wheezing, hemoptysis, sputum. CARDIOVASCULAR: Denies chest pain, palpitations, orthopnea, edema, GASTROINTESTINAL: Denies nausea, vomiting, abdominal pain, diarrhea, constipation, melena. : Denies dysuria, frequency, incontinence, hematuria, urinary retention. MUSCULOSKELETAL: denies weakness, joint pain, or bony pain SKIN: Denies rash, skin lesions, or other NEUROLOGIC: See HPI PSYCHIATRIC: No concerning psychosocial issues. 12 point review of systems is negative except for those stated above Hematologic/Lymphatic On Anticoagulants: No Patient History Medical History Barretts esophagus Chronic pain syndrome Diabetes type 2, uncontrolled Dysphagia Essential hypertension Gastric ulcer Hyperlipidemia PTSD (post-traumatic stress disorder) Rheumatoid arthritis Surgical History History of esophagogastroduodenoscopy (EGD) Family History Father Stroke Mother Stroke Other No pertinent family history Social History household members: none Smoking Status: Former smoker Smoking Status: Former smoker alcohol intake frequency: 0-2 drinks per day Substance Use Type: does not use Exam Narrative Exam Narrative: GENERAL: [71] year old patient appears stated age. Well-developed patient, in mild distress. HEAD: Atraumatic. Normocephalic. EYES: Pupils equal round and reactive. Extraocular motions intact. No scleral icterus. No injection or drainage. ENT: Nose without bleeding, purulent drainage. Throat without erythema, tonsillar hypertrophy or exudate. Airway patent. NECK: Trachea midline. Non tender CARDIOVASCULAR: Regular rate and rhythm without murmurs, gallops, or rubs. RESPIRATORY: Clear to auscultation. Breath sounds equal bilaterally. No wheezes, rales, or rhonchi. GASTROINTESTINAL: Abdomen soft, non-tender, nondistended. EXTREMITIES: No edema or joint tenderness. BACK: Nontender without deformity or crepitance. No flank tenderness. NEURO: AOx3. SKIN: No rash or erythema of visible areas NIH Stroke Scale 1a. LOC: Patient is alert and keenly responsive (0) 1b. LOC Questions: Patient answers both LOC questions accurately (0) 1c. LOC Commands: Patient performs both tasks correctly (0) 2. Best Gaze: Normal (0) 3. Visual: No visual loss (0) 4. Facial palsy: Normal symmetrical movements (0) 5. Motor arm: No drift (0) 6. Motor leg: No drift (0) 7. Limb ataxia: Absent (0) 8. Sensory: Mild/Moderate (1) 9. Best language: No aphasia; normal (0) 10. Dysarthria: Normal (0) 11. Extinction and inattention: No abnormality (0) NIHSS: 0 Initial Vital Signs Initial Vital Signs: Vital Signs Pulse Oximetry 93 06/27/21 10:55 Course Orders Ordered: Discontinued Medications Hydralazine HCl (Hydralazine 20 Mg/Ml Vial) 10 mg IV NOW ONE Stop: 06/27/21 12:43 Last Admin: 06/27/21 13:06 Dose: 10 mg Documented by: LISBET Sodium Chloride (Normal Saline 0.9%) 1,000 mls @ 150 mls/hr IV CONT CAROL Last Infusion: 06/27/21 15:07 Dose: 0 mls/hr Documented by: Admin: 06/27/21 11:53 Dose: 150 mls/hr Documented by: ROSIO Vital Signs Vital signs: Vital Signs - 8 hr 06/27/21 10:55 06/27/21 10:56 06/27/21 10:58 Temperature Pulse Rate 82 83 Respiratory Rate Blood Pressure 192/107 H 182/86 H Pulse Oximetry 93 100 100 06/27/21 11:00 06/27/21 11:30 06/27/21 11:40 Temperature 97.4 F L Pulse Rate 81 83 85 Respiratory Rate 16 14 Blood Pressure 172/81 H 200/88 H 199/92 H Pulse Oximetry 100 100 100 MDM - Neuro Symptoms/Deficit Lab Data Result diagrams: 06/27/21 11:55 06/27/21 11:55 Labs: Lab Results 06/27/21 06/27/21 Range/Units 11:55 11:55 WBC 7.1 (4.5-11.0) X10^3/uL RBC 5.14 (4.5-5.9) X10^6/uL Hgb 12.8 L (13.5-17.5) g/dL Hct 39.2 L (41-53) % MCV 76.3 L (80-100) fL MCH 24.9 L (26-34) PG MCHC 32.7 (30-36) % RDW 14.0 (11.6-14.8) % Plt Count 268 (150-400) X10^3/uL Neut % (Auto) 86.9 H (50-75) % Lymph % (Auto) 6.4 L (25-40) % Gregg % (Auto) 4.3 (3-14) % Eos % (Auto) 1.6 L (2-4) % Baso % (Auto) 0.8 (0-2) % Neut # (Auto) 6100 (7368-0490) /uL Lymph # (Auto) 400 L (0751-7724) /uL Gregg # (Auto) 300 (0-900) /uL Eos # (Auto) 100 (0-450) /uL Baso # (Auto) 100 (0-100) /uL Sodium 137 (137-145) mmol/L Potassium 4.2 (3.4-5.1) mmol/L Chloride 102 (98-107) mmol/L Carbon Dioxide 25 (22-32) mmol/L BUN 28 H (9-20) mg/dL Creatinine 2.20 H (0.66-1.25) mg/dL Estimated GFR 29.6 L (>60) mL/min BUN/Creatinine Ratio 12.7 (6-22) Glucose 305 H (80-110) mg/dL Calcium 9.5 (8.4-10.2) mg/dL Magnesium 2.0 (1.6-2.3) mg/dL Total Bilirubin 0.8 (0.2-1.3) mg/dL AST 28 (17-59) IU/L ALT 18 (<50) IU/L Alkaline Phosphatase 55 (38-126) U/L Total Creatine Kinase 113 (55-170) U/L CK-MB (CK-2) 1.22 (<2.37) ng/mL CK-MB (CK-2) Rel Index 1.1 L (1.5-5.0) % Troponin I < 0.012 (0.01-0.034) ng/mL Total Protein 7.8 (6.3-8.2) g/dL Albumin 4.3 (3.5-5.0) g/dL Globulin 3.5 (1.7-4.1) g/dL Albumin/Globulin Ratio 1.2 (1.0-2.8) Point of Care Testing Glucose POC 261 Urine Dip Bedside Urine Glucose 500 mg/dl Bedside Urine Bilirubin - Negative Bedside Urine Ketone - Negative Urine Specific [place] 1.015 Bedside Urine Occult Blood - Negative Bedside Urine pH 7.0 Bedside Urine Protein - Negative Bedside Urine Urobilinogen - Negative Bedside Urine Nitrite - Negative Bedside Urine Leukocytes - Negative Esterase ECG Data Interpretation: 1101 - EKG is normal sinus rhythm rate [81 ] and free of any signs of ischemia or ectopy. No ST segmental elevation or depression. No T wave inversions MDM Narrative Medical decision making narrative: Patient feeling much better with blood pressure control and hydration. Most likely a combination of these 2 etiologies though stroke is considered but thought unlikely given lack of unilateral findings, normal head CT and very convincing temporal relationship between resolution of symptoms and above-stated therapies. Patient speaking clearly in ambulating through the department without difficulty. He is completely asymptomatic at time of discharge. He and multiple family members are aware of and in agreement with diagnosis and plan Return precautions given and questions answered to his apparent satisfaction Discharge Plan Departure Patient Disposition: Home Clinical Impression: Paresthesia, Hypertension, Acute dehydration Instructions: Essential Hypertension, DI for Dehydration -- Adult Activity Restrictions/Additional Instructions: *You have been diagnosed with [tingling likely due to a combination of dehydration and high blood pressure. We did consider stroke but as we discussed this is exceedingly unlikely given your presentation and improvement of symptoms.] *What to do: *Please continue to take your regular medications as directed. [ ] New medication prescriptions sent to your pharmacy: [ ] [ ] New medication written as a paper prescription [ x] No new medications given *Please follow up with your primary care provider in 2-3 days, call for an appointment. Let them know you were seen in the Emergency Department and that we ask that you be seen in follow up. We will electronically transmit a record of today's note if your PCP is in our system *If you do not have a primary care provider please contact the [facility] Resource line at [phone]. They will ask some questions about your medical history and help get you set up with a doctor in the community. *Return to Emergency Department if you should have any new, worsening or concerning symptoms, such as [fever greater than 101 F, shaking chills, worsening pain, persistent vomiting or other bothersome symptoms] Prescriptions: No Action nifedipine 60 MG tablet extended release 24hr 60 mg PO BID Qty: 0 RF: 0 cyclobenzaprine 10 MG tablet 10 mg PO BID Qty: 0 RF: 0 atorvastatin [Lipitor] 40 MG tablet 40 mg PO QAM Qty: 0 RF: 0 fenofibrate 160 MG tablet 160 mg PO DAILY Qty: 0 RF: 0 sennosides [senna] 8.6 MG tablet 2 tab PO Q DAY Qty: 0 RF: 0 loratadine [Claritin] 10 MG tablet 10 mg PO DAILY PRN (Reason: Allergy Symptoms) Qty: 0 RF: 0 pantoprazole 40 MG tablet,delayed release (DR/EC) 40 mg PO 0600,2100 Qty: 60 RF: 0 oxycodone [OxyContin] 10 mg Tablet,Oral Only,Ext.Rel.12 Hr 10 mg PO BID RF: 0 docusate calcium 240 mg capsule 240 mg PO TID RF: 0 oxycodone-acetaminophen 5-325 mg tablet 1 tab PO BID PRN (Reason: pain) RF: 0 oxycodone-acetaminophen 10-325 mg tablet 1 tab PO Q8H PRN (Reason: pain) RF: 0 lisinopril 40 mg tablet 40 mg PO DAILY RF: 0 fluticasone propionate 50 mcg/actuation spray,suspension 1 spray Intranasal DIRECTED RF: 0 chlorthalidone 25 mg Tablet 25 mg PO DAILY Qty: 30 RF: 0 labetalol 100 mg Tablet 100 mg PO BID Qty: 60 RF: 0 Referrals: Kristopher Espinoza MD [Primary Care Provider] -
[2021-06-27] MEDS: SODIUM CHLORIDE 0.9% 1,000 ML 150 ML IV (11:53)
[2021-06-27 12:03] LABS: Add Manual Diff / Slide Review NO; Basophils Absolute Auto 100 /uL (0-100); Basophils Percent Auto 0.8 % (0-2); Eosinophils Absolute Auto 100 /uL (0-450); Eosinophils Percent Auto 1.6 % (2-4); Hematocrit 39.2 % (41-53); Hemoglobin 12.8 g/dL (13.5-17.5); Lymphocytes Absolute Auto 400 /uL (1100-4500); Lymphocytes Percent Auto 6.4 % (25-40); Mean Corpuscular HGB Conc 32.7 % (30-36); Mean Corpuscular Hemoglobin 24.9 PG (26-34); Mean Corpuscular Volume 76.3 fL (80-100); Monocytes Absolute Auto 300 /uL (0-900); Monocytes Percent Auto 4.3 % (3-14); Neutrophils Absolute Auto 6100 /uL (1500-7000); Neutrophils Percent Auto 86.9 % (50-75); Platelet Count 268 X10^3/uL (150-400); Red Blood Cell Count 5.14 X10^6/uL (4.5-5.9); White Blood Cell Count 7.1 X10^3/uL (4.5-11.0)
[2021-06-27 12:14] LABS: Alanine Aminotransferase 18 IU/L (<50); Albumin 4.3 g/dL (3.5-5.0); Albumin Globulin Ratio 1.2 (1.0-2.8); Alkaline Phosphatase 55 U/L (38-126); Aspartate Aminotransferase 28 IU/L (17-59); BUN Creatinine Ratio 12.7 (6-22); Bilirubin Total 0.8 mg/dL (0.2-1.3); Blood Urea Nitrogen 28 mg/dL (9-20); Calcium 9.5 mg/dL (8.4-10.2); Carbon Dioxide 25 mmol/L (22-32); Chloride 102 mmol/L (98-107); Creatine Kinase 113 U/L (55-170); Estimated Glomerular Filt Rate 29.6 mL/min (>60); Globulin 3.5 g/dL (1.7-4.1); Glucose 305 mg/dL (80-110); HEMOLYSIS < 15 (0-50); Potassium 4.2 mmol/L (3.4-5.1); Sodium 137 mmol/L (137-145); Total Protein 7.8 g/dL (6.3-8.2)
[2021-06-27 12:25] LABS: Troponin I < 0.012 ng/mL (0.01-0.034)
[2021-06-27 12:29] LABS: CKMB % Relative Index 1.1 % (1.5-5.0); Creatine Kinase MB 1.22 ng/mL (<2.37)
[2021-06-27] MEDS: HYDRALAZINE 20 MG/ML VIAL 10 MG IV (13:06)
--- NOTE | 2021-06-27 14:27 | PC.NURSE ---
Pt taking 100mg Labetolol per MD nino
== END 2021-06-27 15:08 | disposition home or self-care (01) ==
PROVIDERS: Emergency Provider Emergency Medicine; Family Provider Internal Medicine; PCP Internal Medicine
DX: R20.2 Paresthesia of skin (principal); I10 Essential (primary) hypertension; E86.0 Dehydration
CPT/HCPCS: 70450; 80053; 81003; 82550; 82553; 82962; 83735; 84484; 85025; 93005; 96361; 96374; 99284; J0360

== ENCOUNTER 2021-12-24 08:40 | Emergency (ER) | payer MEDICARE, OTHER, SELFPAY ==
[2021-03-06 03:07] VITALS: BMI 31.9
[2021-12-24] VITALS (22 sets, daily range): BP systolic 210–241; BP diastolic 94–117; PULSE 67–83; RESP 12–34; TEMP 36.8; O2SAT 99–100; BMI 36.1
--- NOTE | 2021-12-24 08:48 | ED.GENADULT ---
HPI - General Adult General Chief complaint: Hypertension Stated complaint: blood pressure high Time Seen by Provider: 12/24/21 08:48 History of Present Illness HPI narrative: 71-year-old gentleman with a history of hyperlipidemia, hypertension, dysphagia with Mathias's esophagus, acute kidney injury presents with complaints of elevated blood pressures over the last days. Has a history of hypertension and had been stable on the lisinopril 40 mg and hydralazine 50 mg t.i.d. with blood pressures ranging in the 130/70 range. Over the last week he has noticed significantly elevated blood pressures and saw his primary care physician in [place]. Based on his list of blood pressures with systolics ranging from 206-233 and diastolics ranging from 101-135, she added labetalol 200 mg in the morning and 1 in the evening to start 4 days ago. Three days ago he was to add amlodipine 10 mg. Two days ago he added chlorthalidone 25 mg and this morning he notes that his blood pressures are still significantly elevated. This morning he took labetalol chlorthalidone amlodipine but has not yet taken his hydralazine or lisinopril. He is due to have blood work done, most recent was in June of this year with a noted bump in creatinine from a previous baseline of 1.5 into the 2.2 range. It does not look like there had been follow-up regarding that creatinine jump. He notes that he has had a mild headache and some nausea but no other acute neurologic findings, dyspnea, orthopnea, palpitations, overt chest pain. He notes that he perhaps is having slightly more lower extremity edema. He is making appropriate urine and having no problems with stooling or voiding. Related Data Home Medications Medication Instructions Recorded Confirmed atorvastatin 40 mg tablet (Lipitor) 40 mg PO QAM #0 07/05/17 03/06/21 cyclobenzaprine 10 mg tablet 10 mg PO BID #0 07/05/17 03/06/21 fenofibrate 160 mg tablet 160 mg PO DAILY #0 07/05/17 03/06/21 loratadine 10 mg tablet (Claritin) 10 mg PO DAILY PRN #0 07/05/17 03/06/21 nifedipine 60 mg tablet,extended 60 mg PO BID #0 07/05/17 03/06/21 release 24 hr sennosides 8.6 mg tablet (senna) 2 tab PO Q DAY #0 07/05/17 03/06/21 docusate calcium 240 mg capsule 240 mg PO TID 01/20/19 03/06/21 fluticasone propionate 50 1 spray INTRANASAL DIRECTED 01/20/19 03/06/21 mcg/actuation nasal spray,suspension lisinopril 40 mg tablet 40 mg PO DAILY 01/20/19 03/06/21 oxycodone-acetaminophen 10 mg-325 1 tab PO Q8H PRN 01/20/19 03/06/21 mg tablet oxycodone-acetaminophen 5 mg-325 1 tab PO BID PRN 01/20/19 03/06/21 mg tablet oxycodone 10 mg tablet,crush 10 mg PO BID 09/02/19 03/06/21 resistant,extended release 12 hr (OxyContin) Previous Rx's Medication Instructions Recorded pantoprazole 40 mg tablet,delayed 40 mg PO 0600,2100 #60 tab 07/08/17 release chlorthalidone 25 mg tablet 25 mg PO DAILY #30 tab 03/07/21 labetalol 100 mg tablet 100 mg PO BID #60 tab 03/07/21 Allergies Allergy/AdvReac Type Severity Reaction Status Date / Time No Known Allergies Allergy Verified 06/27/21 11:00 Review of Systems Review of Systems Narrative: Remainder of complete review of systems is otherwise unremarkable except for that included in the HPI. Patient History Medical History Barretts esophagus Chronic pain syndrome Diabetes type 2, uncontrolled Dysphagia Essential hypertension Gastric ulcer Hyperlipidemia PTSD (post-traumatic stress disorder) Rheumatoid arthritis Surgical History History of esophagogastroduodenoscopy (EGD) Family History Father Stroke Mother Stroke Other No pertinent family history Social History household members: none Smoking Status: Former smoker Smoking Status: Former smoker alcohol intake frequency: 0-2 drinks per day Substance Use Type: does not use Exam Initial Vital Signs Initial Vital Signs: Vital Signs Temperature 98.3 F 12/24/21 08:45 Pulse Rate 83 12/24/21 08:45 Respiratory Rate 18 12/24/21 08:45 Blood Pressure 240/109 H 12/24/21 08:45 Pulse Oximetry 100 12/24/21 08:45 General: Healthy appearing, in no acute distress. Able to give a complete and coherent history. Well-nourished well-developed HEENT: Moist mucous membranes, normal sclera with reactive pupils, Neck: No JVD, supple Respiratory: Lungs are clear to auscultation, no wheezing no rales no rhonchi. Full and symmetrical air movement Cardiac: Regular rate and rhythm no murmurs no bruits Abdomen: Soft, nontender, good bowel tones, no flank pain Skin: Warm and dry, no rashes Neurologic: Grossly neurologically intact with no obvious asymmetries or abnormalities Extremities: No trauma, well perfused, 1+ bilateral lower extremity edema Psych: Cooperative, appropriate insight and affect Course Orders Ordered: ED Orders 12/24/21 09:05 Complete Blood Count AUTO DIFF Stat Comprehensive Metabolic Panel Stat NT-proBNP (BNP-Adult 18+) Stat Troponin I Stat 12/24/21 09:43 XR chest 1V Stat 12/24/21 12:45 Aldosterone Stat Metanephrines, Fr/tot plasma Stat Discontinued Medications Clonidine HCl (Clonidine 0.1 Mg Tablet) 0.1 mg PO NOW ONE Stop: 12/24/21 11:51 Last Admin: 12/24/21 12:17 Dose: 0.1 mg Documented by: [email or web address] Clonidine HCl (Clonidine Tts 0.2 Mg Patch) 0.2 mg TOP NOW ONE Stop: 12/24/21 11:51 Last Admin: 12/24/21 12:18 Dose: 0.2 mg Documented by: EMMA Labetalol HCl (Labetalol 20 Mg/4 Ml Syringe) 20 mg IV NOW ONE Stop: 12/24/21 09:44 Last Admin: 12/24/21 10:08 Dose: 20 mg Documented by: EMMA Labetalol HCl (Labetalol 100 Mg Tablet) 200 mg PO NOW ONE Stop: 12/24/21 11:51 Last Admin: 12/24/21 12:18 Dose: 200 mg Documented by: EMMA Vital Signs Vital signs: Vital Signs - 8 hr 12/24/21 08:45 12/24/21 08:51 12/24/21 09:00 Temperature 98.3 F Pulse Rate 83 79 76 Respiratory Rate 18 15 16 Blood Pressure 240/109 H 212/102 H Pulse Oximetry 100 100 100 12/24/21 09:01 12/24/21 09:22 12/24/21 09:30 Temperature Pulse Rate 77 79 79 Respiratory Rate 13 16 14 Blood Pressure 226/108 H 239/109 H 218/109 H Pulse Oximetry 100 100 100 12/24/21 10:00 12/24/21 10:01 12/24/21 10:08 Temperature Pulse Rate 71 73 71 Respiratory Rate 13 34 H Blood Pressure 221/94 H 233/102 H Pulse Oximetry 99 99 12/24/21 10:11 12/24/21 10:19 12/24/21 10:30 Temperature Pulse Rate 72 70 67 Respiratory Rate 12 17 14 Blood Pressure 233/102 H 213/102 H 217/98 H Pulse Oximetry 100 100 99 12/24/21 11:00 12/24/21 11:18 12/24/21 11:19 Temperature Pulse Rate 70 74 73 Respiratory Rate 13 19 Blood Pressure 241/107 H 238/107 H 238/107 H Pulse Oximetry 100 100 12/24/21 11:30 12/24/21 12:00 12/24/21 12:17 Temperature Pulse Rate 74 72 76 Respiratory Rate 18 12 Blood Pressure 231/98 H 229/117 H 229/117 H Pulse Oximetry 100 100 12/24/21 12:18 12/24/21 12:23 12/24/21 12:30 Temperature Pulse Rate 76 77 75 Respiratory Rate Blood Pressure 229/117 H 232/105 H 225/102 H Pulse Oximetry 100 100 Medical Decision Making Lab Data Result diagrams: 12/24/21 09:05 12/24/21 09:05 Labs: Lab Results 12/24/21 12/24/21 Range/Units 09:05 09:05 WBC 7.7 (4.5-11.0) X10^3/uL RBC 5.17 (4.5-5.9) X10^6/uL Hgb 13.3 L (13.5-17.5) g/dL Hct 38.9 L (41-53) % MCV 75.3 L (80-100) fL MCH 25.6 L (26-34) PG MCHC 34.0 (30-36) % RDW 15.1 H (11.6-14.8) % Plt Count 281 (150-400) X10^3/uL Neut % (Auto) 84.7 H (50-75) % Lymph % (Auto) 8.9 L (25-40) % [place] % (Auto) 4.9 (3-14) % Eos % (Auto) 1.0 L (2-4) % Baso % (Auto) 0.5 (0-2) % Neut # (Auto) 6600 (8018-2652) /uL Lymph # (Auto) 700 L (9486-4549) /uL [place] # (Auto) 400 (0-900) /uL Eos # (Auto) 100 (0-450) /uL Baso # (Auto) 0 (0-100) /uL Sodium 134 L (137-145) mmol/L Potassium 3.8 (3.4-5.1) mmol/L Chloride 97 L (98-107) mmol/L Carbon Dioxide 32 (22-32) mmol/L BUN 21 H (9-20) mg/dL Creatinine 1.68 H (0.66-1.25) mg/dL Estimated GFR 40.4 L (>60) mL/min BUN/Creatinine Ratio 12.5 (6-22) Glucose 186 H (80-110) mg/dL Calcium 10.1 (8.4-10.2) mg/dL Total Bilirubin 0.5 (0.2-1.3) mg/dL AST 32 (17-59) IU/L ALT 15 (<50) IU/L Alkaline Phosphatase 51 (38-126) U/L Troponin I 0.014 (0.01-0.034) ng/mL NT-Pro-B Natriuret Pep 1020 H (<125) pg/mL Total Protein 7.2 (6.3-8.2) g/dL Albumin 4.1 (3.5-5.0) g/dL Globulin 3.1 (1.7-4.1) g/dL Albumin/Globulin Ratio 1.3 (1.0-2.8) Imaging Data Chest x-ray: Radiologist's Impression: FINDINGS:? ? Surgical changes and devices:? None.? ? Lungs and pleura:? On this semiupright portable chest examination, no large pneumothorax or large pleural effusions are seen.? No focal infiltrates are seen.? ? Mediastinum:? The cardiac contours are mildly enlarged for portable technique. The aorta demonstrates calcification and tortuosity. ? Bones and chest wall:? No suspicious bony lesions.? Age-appropriate bony degenerative changes are seen.? ? Overlying soft tissues appear unremarkable.? ? ? IMPRESSION:? Mild cardiomegaly. ? ? Dictated by: Shashank Barahona M.D. on 12/24/2021 at 9:13 ? ? ECG Data Interpretation: Sinus tachycardia with a first-degree block at 105 Left axis deviation No acute ischemic changes. MDM Narrative Medical decision making narrative: 71-year-old gentleman with a symptomatic refractory hypertension. Had been doing well apparently for an extended period of time on 40 mg of lisinopril and hydralazine 50 mg 3 times a day. Over the last 4 days labetalol chlorthalidone am amlodipine have all been added and blood pressures are still significantly elevated. There is no sign of stroke, acute coronary syndrome or other acute systemic affects of his elevated pressures today. He does have renal insufficiency but his creatinine is down from last check. He was given 20 mg of IV labetalol. There is minimal change to his blood pressure. He had not taken his lisinopril yet this morning will give him that along with an additional 200 mg of oral labetalol and 0.1 mg of clonidine. Care is reviewed with Dr. Nunn, cardiology. Given current pandemic bed shortage is and extraordinarily high COVID rates we discussed inpatient versus outpatient treatment for this gentleman. As there is no sign of acute change and organ abnormalities will continue with outpatient management with close follow-up. Recommendation was adding a clonidine patch to the 5 medications he is currently taking. Will have his labetalol increased to 200 mg twice a day. Recommended aldosterone and metanephrine levels which are added to blood work from the emergency department Recommended echocardiogram as well as further workup for renal artery stenosis as an outpatient Will need close follow-up with his primary care physician within the next 24-48 hours Critical Care Time Critical Care Time Critical Care Time: Yes Total Critical Care Time: 33 Attestation: Critical care time is separate from other billable procedures. There is a high probability of a significant, sudden or life-threatening deterioration that requires my full and direct attention, intervention and personal management. This critical care time includes consultation with family and other consulting doctors, review of records, and interpretation of data from labs, EKGs and imaging as well as managements of refractory hypertension. Discharge Plan Departure Patient Disposition: Home Clinical Impression: Hypertension Qualifiers: Hypertension type: unspecified Qualified Code(s): I10 - Essential (primary) hypertension Instructions: DI for High Blood Pressure Activity Restrictions/Additional Instructions: Thank you for coming in today I am glad that you are paying attention to your blood pressure. It certainly is elevated and in this setting, with multiple medications, we call this refractory hypertension Because you are not having acute signs of other organ injury like a stroke, heart attack or acute renal failure you do not need to be hospitalized I did review your case with our on-call music industry internship and his recommendations are as follows: Continue -chlorthalidone 25 mg daily, -lisinopril 40 mg daily, -amlodipine 10 mg daily, -hydralazine 50 mg 3 times a day, Increase labetalol to 200 mg in the morning and 200 at night Add clonidine 0.2 mg patch weekly Do continue to check blood pressures throughout the day and call to schedule an urgent follow-up appointment with your primary care provider In the emergency room additional blood work was added to look for complications of renal artery stenosis. The music industry internship recommended an echocardiogram as an outpatient. I have given you a copy of the ER notes, labs and studies from today to share with your primary care provider If you develop increasing headaches, feel like your thinking is foggy, numbness or tingling in any part of her body, chest pain, increasing shortness of breath you do need to return to the emergency department Prescriptions: No Action nifedipine 60 MG tablet extended release 24hr 60 mg PO BID Qty: 0 0RF cyclobenzaprine 10 MG tablet 10 mg PO BID Qty: 0 0RF atorvastatin [Lipitor] 40 MG tablet 40 mg PO QAM Qty: 0 0RF fenofibrate 160 MG tablet 160 mg PO DAILY Qty: 0 0RF sennosides [senna] 8.6 MG tablet 2 tab PO Q DAY Qty: 0 0RF loratadine [Claritin] 10 MG tablet 10 mg PO DAILY PRN (Reason: Allergy Symptoms) Qty: 0 0RF pantoprazole 40 MG tablet,delayed release (DR/EC) 40 mg PO 0600,2100 Qty: 60 0RF oxycodone [OxyContin] 10 mg Tablet,Oral Only,Ext.Rel.12 Hr 10 mg PO BID 0RF docusate calcium 240 mg capsule 240 mg PO TID 0RF oxycodone-acetaminophen 5-325 mg tablet 1 tab PO BID PRN (Reason: pain) 0RF oxycodone-acetaminophen 10-325 mg tablet 1 tab PO Q8H PRN (Reason: pain) 0RF lisinopril 40 mg tablet 40 mg PO DAILY 0RF fluticasone propionate 50 mcg/actuation spray,suspension 1 spray Intranasal DIRECTED 0RF chlorthalidone 25 mg Tablet 25 mg PO DAILY Qty: 30 0RF labetalol 100 mg Tablet 100 mg PO BID Qty: 60 0RF Referrals: Kristopher Espinoza MD [Primary Care Provider] -
--- NOTE | 2021-12-24 09:43 | DI.RAD.S_ITS ---
PROCEDURE: XR CHEST 1V INDICATIONS: hypertensive crisis TECHNIQUE: One view of the chest was acquired. COMPARISON: [facility], CT, CT ANGIO CHEST ABDOMEN PELVIS, 03/06/2021, 13:02. [facility], CR, XR CHEST 1V, 03/06/2021, 0:27. FINDINGS: Surgical changes and devices: None. Lungs and pleura: On this semiupright portable chest examination, no large pneumothorax or large pleural effusions are seen. No focal infiltrates are seen. Mediastinum: The cardiac contours are mildly enlarged for portable technique. The aorta demonstrates calcification and tortuosity. Bones and chest wall: No suspicious bony lesions. Age-appropriate bony degenerative changes are seen. Overlying soft tissues appear unremarkable. IMPRESSION: Mild cardiomegaly. Dictated by: Shashank Barahona M.D. on 12/24/2021 at 9:13 Approved by: Shashank Barahona M.D. on 12/24/2021 at 9:14
[2021-12-24] MEDS: LABETALOL 20 MG/4 ML SYRINGE IV (10:08)
[2021-12-24 10:14] LABS: Add Manual Diff / Slide Review NO; Basophils Absolute Auto 0 /uL (0-100); Basophils Percent Auto 0.5 % (0-2); Eosinophils Absolute Auto 100 /uL (0-450); Hematocrit 38.9 % (41-53); Hemoglobin 13.3 g/dL (13.5-17.5); Lymphocytes Absolute Auto 700 /uL (1100-4500); Lymphocytes Percent Auto 8.9 % (25-40); Mean Corpuscular Hemoglobin 25.6 PG (26-34); Mean Corpuscular Volume 75.3 fL (80-100); Monocytes Absolute Auto 400 /uL (0-900); Monocytes Percent Auto 4.9 % (3-14); Neutrophils Absolute Auto 6600 /uL (1500-7000); Neutrophils Percent Auto 84.7 % (50-75); Platelet Count 281 X10^3/uL (150-400); Red Blood Cell Count 5.17 X10^6/uL (4.5-5.9); Red Cell Distribution Width 15.1 % (11.6-14.8); White Blood Cell Count 7.7 X10^3/uL (4.5-11.0)
[2021-12-24 10:21] LABS: Alanine Aminotransferase 15 IU/L (<50); Albumin 4.1 g/dL (3.5-5.0); Albumin Globulin Ratio 1.3 (1.0-2.8); Alkaline Phosphatase 51 U/L (38-126); Aspartate Aminotransferase 32 IU/L (17-59); BUN Creatinine Ratio 12.5 (6-22); Bilirubin Total 0.5 mg/dL (0.2-1.3); Blood Urea Nitrogen 21 mg/dL (9-20); Calcium 10.1 mg/dL (8.4-10.2); Carbon Dioxide 32 mmol/L (22-32); Chloride 97 mmol/L (98-107); Estimated Glomerular Filt Rate 40.4 mL/min (>60); Globulin 3.1 g/dL (1.7-4.1); Glucose 186 mg/dL (80-110); HEMOLYSIS < 15 (0-50); Potassium 3.8 mmol/L (3.4-5.1); Sodium 134 mmol/L (137-145); Total Protein 7.2 g/dL (6.3-8.2)
[2021-12-24 10:31] LABS: NT-proBNP (BNP-Adult 18+) 1020 pg/mL (<125); Troponin I 0.014 ng/mL (0.01-0.034)
--- NOTE | 2021-12-24 11:19 | PC.NURSE ---
Pt received 20mg Labetalol, recycled BP >30mins, currently 238/107. Provider aware.
[2021-12-24] MEDS: cloNIDine 0.1 MG TABLET PO (12:17)
[2021-12-24] MEDS: LABETALOL 100 MG TABLET 200 MG PO (12:18)
[2021-12-24] MEDS: cloNIDine TTS 0.2 MG PATCH TOP (12:18)
== END 2021-12-24 14:05 | disposition home or self-care (01) ==
PROVIDERS: Emergency Provider Emergency Medicine; Family Provider Internal Medicine; PCP Internal Medicine
DX: I10 Essential (primary) hypertension (principal); Z87.891 Personal history of nicotine dependence
CPT/HCPCS: 36415; 71045; 80053; 82088; 83835; 83880; 84484; 85025; 93005; 96374; 99284; 99291

== ENCOUNTER 2022-04-08 12:09 | Emergency (ER) | payer MEDICARE, OTHER, SELFPAY ==
[2021-03-06 03:07] VITALS: BMI 31.9
[2022-04-08] VITALS (10 sets, daily range): BP systolic 163–198; BP diastolic 78–92; PULSE 76–92; RESP 11–24; TEMP 36.8; O2SAT 99–100; BMI 34.4
--- NOTE | 2022-04-08 12:16 | DI.RAD.S_ITS ---
PROCEDURE: XR CHEST 1V INDICATIONS: chest pain TECHNIQUE: One view of the chest was acquired. COMPARISON: [facility], CR, XR CHEST 1V, 03/06/2021, 0:27. [facility], CR, XR CHEST 1V, 12/24/2021, 9:58. FINDINGS: Surgical changes and devices: None. Lungs and pleura: Lungs are clear. No pleural effusions or pneumothorax. Mediastinum: Mediastinal contours appear normal. Heart size is normal. Bones and chest wall: No suspicious bony lesions. Overlying soft tissues appear unremarkable. IMPRESSION: No acute cardiopulmonary disease. Dictated by: Dax Reyes M.D. on 04/08/2022 at 11:32 Approved by: Dax Reyes M.D. on 04/08/2022 at 11:33
--- NOTE | 2022-04-08 12:20 | ED.CHESTPAIN ---
HPI - Chest Pain General Chief Complaint: Chest Pain Stated Complaint: Thinks he had a heart attack last night Time Seen by Provider: 04/08/22 12:16 History of Present Illness HPI narrative: 72-year-old male former smoker with history of hypertension and hyperlipidemia presents with family in the chief complaint of severe chest and abdominal pain that woke him from sleep last night. He states he had been in his normal state of health when he went to sleep and had this episode of discomfort that he states was very intense but very brief. During the episode he denies any obvious provocation, palliation or radiation of his discomfort. He denies associated symptoms such as dizziness, weakness or lightheadedness. He denies shortness of breath, nausea, vomiting or unexplained diaphoresis. He denies any symptoms at all since this episode happened in the normal night. He denies any history of blood clot, recent travel, injury or known cancer. He denies any change in medications or diet. He has had no diarrhea or constipation no urinary complaints such as dysuria, frequency or urgency. Related Data Home Medications Medication Instructions Recorded Confirmed atorvastatin 40 mg tablet (Lipitor) 40 mg PO QAM #0 07/05/17 03/06/21 cyclobenzaprine 10 mg tablet 10 mg PO BID #0 07/05/17 03/06/21 fenofibrate 160 mg tablet 160 mg PO DAILY #0 07/05/17 03/06/21 loratadine 10 mg tablet (Claritin) 10 mg PO DAILY PRN #0 07/05/17 03/06/21 nifedipine 60 mg tablet,extended 60 mg PO BID #0 07/05/17 03/06/21 release 24 hr sennosides 8.6 mg tablet (senna) 2 tab PO Q DAY #0 07/05/17 03/06/21 docusate calcium 240 mg capsule 240 mg PO TID 01/20/19 03/06/21 fluticasone propionate 50 1 spray INTRANASAL DIRECTED 01/20/19 03/06/21 mcg/actuation nasal spray,suspension lisinopril 40 mg tablet 40 mg PO DAILY 01/20/19 03/06/21 oxycodone-acetaminophen 10 mg-325 1 tab PO Q8H PRN 01/20/19 03/06/21 mg tablet oxycodone-acetaminophen 5 mg-325 1 tab PO BID PRN 01/20/19 03/06/21 mg tablet oxycodone 10 mg tablet,crush 10 mg PO BID 09/02/19 03/06/21 resistant,extended release 12 hr (OxyContin) Previous Rx's Medication Instructions Recorded pantoprazole 40 mg tablet,delayed 40 mg PO 0600,2100 #60 tab 07/08/17 release chlorthalidone 25 mg tablet 25 mg PO DAILY #30 tab 03/07/21 labetalol 100 mg tablet 100 mg PO BID #60 tab 03/07/21 Allergies Allergy/AdvReac Type Severity Reaction Status Date / Time No Known Allergies Allergy Verified 06/27/21 11:00 Review of Systems Review of Systems Narrative: GENERAL: Denies chills, fatigue, malaise, fever, sweats. HEENT: Denies sinus pain, ear pain, sore throat, difficulty swallowing, dizziness. RESPIRATORY: Denies dyspnea, cough, wheezing, hemoptysis, sputum. CARDIOVASCULAR:see HPI GASTROINTESTINAL: see HPI : Denies dysuria, frequency, incontinence, hematuria, urinary retention. MUSCULOSKELETAL: denies weakness, joint pain, or bony pain SKIN: Denies rash, skin lesions, or other NEUROLOGIC: Denies weakness, headache, numbness, change in speech, confusion, seizures, incoordination. PSYCHIATRIC: No concerning psychosocial issues. 12 point review of systems is negative except for those stated above Patient History Medical History Barretts esophagus Chronic pain syndrome Diabetes type 2, uncontrolled Dysphagia Essential hypertension Gastric ulcer Hyperlipidemia PTSD (post-traumatic stress disorder) Rheumatoid arthritis Surgical History History of esophagogastroduodenoscopy (EGD) Family History Father Stroke Mother Stroke Other No pertinent family history Social History household members: none Smoking Status: Former smoker Smoking Status: Former smoker alcohol intake frequency: 0-2 drinks per day Substance Use Type: does not use Exam Narrative Exam Narrative: GENERAL: [72 year old patient appears stated age. Well-developed patient, in no obvious distress, resting comfortably HEAD: Atraumatic. Normocephalic. EYES: Pupils equal round and reactive. Extraocular motions intact. No scleral icterus. No injection or drainage. ENT: Nose without bleeding, purulent drainage. Throat without erythema, tonsillar hypertrophy or exudate. Airway patent. NECK: Trachea midline. Non tender CARDIOVASCULAR: Regular rate and rhythm without murmurs, gallops, or rubs. RESPIRATORY: Clear to auscultation. Breath sounds equal bilaterally. No wheezes, rales, or rhonchi. GASTROINTESTINAL: Abdomen soft, non-tender, nondistended. EXTREMITIES: No edema or joint tenderness. BACK: Nontender without deformity or crepitance. No flank tenderness. NEURO: AOx3. SKIN: No rash or erythema of visible areas Initial Vital Signs Initial Vital Signs: Vital Signs Blood Pressure 198/89 H 04/08/22 12:17 Course Orders Ordered: ED Orders 04/08/22 12:16 XR chest 1V Stat EKG-12 Lead Stat 04/08/22 12:40 Complete Blood Count AUTO DIFF Stat Comprehensive Metabolic Panel Stat D Dimer Stat Lipase Stat NT-proBNP (BNP-Adult 18+) Stat Partial Thromboplastin Time Stat Prothrombin Time INR Stat Troponin & CK Cardiac Panel Stat 04/08/22 14:45 Troponin & CK Cardiac Panel Stat Sodium Chloride (Normal Saline 0.9%) 1,000 mls @ 150 mls/hr IV CONT CAROL Last Admin: 04/08/22 12:59 Dose: 150 mls/hr Documented by: PRASAD Discontinued Medications Aspirin (Aspirin 81 Mg Chew Tab) 324 mg PO NOW ONE Stop: 04/08/22 12:17 Last Admin: 04/08/22 12:49 Dose: Not Given Documented by: ROBERT Vital Signs Vital signs: Vital Signs - 8 hr 04/08/22 12:17 04/08/22 12:18 04/08/22 12:19 Temperature 98.3 F Pulse Rate 91 H 92 H Respiratory Rate 12 20 Blood Pressure 198/89 H 191/79 H 198/89 H Pulse Oximetry 100 100 04/08/22 12:30 04/08/22 13:00 04/08/22 13:30 Temperature Pulse Rate 89 81 89 Respiratory Rate 24 16 18 Blood Pressure 163/78 H Pulse Oximetry 99 99 99 04/08/22 13:31 04/08/22 14:08 Temperature Pulse Rate 78 78 Respiratory Rate 13 11 L Blood Pressure 181/82 H 185/92 H Pulse Oximetry 99 100 MDM - Chest Pain Lab Data Result diagrams: 04/08/22 12:40 04/08/22 12:40 Labs: Lab Results 04/08/22 04/08/22 04/08/22 Range/Units 12:40 12:40 12:40 WBC 7.5 (4.5-11.0) X10^3/uL RBC 4.57 (4.5-5.9) X10^6/uL Hgb 11.8 L (13.5-17.5) g/dL Hct 34.7 L (41-53) % MCV 76.0 L (80-100) fL MCH 25.8 L (26-34) PG MCHC 33.9 (30-36) % RDW 15.4 H (11.6-14.8) % Plt Count 319 (150-400) X10^3/uL Neut % (Auto) 83.3 H (50-75) % Lymph % (Auto) 9.5 L (25-40) % [place] % (Auto) 5.1 (3-14) % Eos % (Auto) 1.5 L (2-4) % Baso % (Auto) 0.6 (0-2) % Neut # (Auto) 6200 (7066-7970) /uL Lymph # (Auto) 700 L (3793-5131) /uL [place] # (Auto) 400 (0-900) /uL Eos # (Auto) 100 (0-450) /uL Baso # (Auto) 0 (0-100) /uL PT 13.7 H (10.1-12.7) SECONDS INR 1.2 (0.9-1.3) APTT 35 (26.4-36.2) SECONDS D-Dimer < 200 (<230) ng/mL Sodium 133 L (137-145) mmol/L Potassium 4.0 (3.4-5.1) mmol/L Chloride 98 (98-107) mmol/L Carbon Dioxide 27 (22-32) mmol/L BUN 30 H (9-20) mg/dL Creatinine 2.10 H (0.66-1.25) mg/dL Estimated GFR 33 L (>60) mL/min BUN/Creatinine Ratio 14.3 (6-22) Glucose 223 H (80-110) mg/dL Calcium 9.3 (8.4-10.2) mg/dL Total Bilirubin 0.3 (0.2-1.3) mg/dL AST 30 (17-59) IU/L ALT 21 (<50) IU/L Alkaline Phosphatase 51 (38-126) U/L Total Creatine Kinase 169 (55-170) U/L CK-MB (CK-2) 3.95 H (<2.37) ng/mL CK-MB (CK-2) Rel Index 2.3 (1.5-5.0) % Troponin I < 0.012 (0.01-0.034) ng/mL NT-Pro-B Natriuret Pep 458 H (<125) pg/mL Total Protein 6.7 (6.3-8.2) g/dL Albumin 3.9 (3.5-5.0) g/dL Globulin 2.8 (1.7-4.1) g/dL Albumin/Globulin Ratio 1.4 (1.0-2.8) Lipase 264 (23-300) U/L 04/08/22 Range/Units 14:45 WBC (4.5-11.0) X10^3/uL RBC (4.5-5.9) X10^6/uL Hgb (13.5-17.5) g/dL Hct (41-53) % MCV (80-100) fL MCH (26-34) PG MCHC (30-36) % RDW (11.6-14.8) % Plt Count (150-400) X10^3/uL Neut % (Auto) (50-75) % Lymph % (Auto) (25-40) % [place] % (Auto) (3-14) % Eos % (Auto) (2-4) % Baso % (Auto) (0-2) % Neut # (Auto) (8811-0570) /uL Lymph # (Auto) (4183-7626) /uL [place] # (Auto) (0-900) /uL Eos # (Auto) (0-450) /uL Baso # (Auto) (0-100) /uL PT (10.1-12.7) SECONDS INR (0.9-1.3) APTT (26.4-36.2) SECONDS D-Dimer (<230) ng/mL Sodium (137-145) mmol/L Potassium (3.4-5.1) mmol/L Chloride (98-107) mmol/L Carbon Dioxide (22-32) mmol/L BUN (9-20) mg/dL Creatinine (0.66-1.25) mg/dL Estimated GFR (>60) mL/min BUN/Creatinine Ratio (6-22) Glucose (80-110) mg/dL Calcium (8.4-10.2) mg/dL Total Bilirubin (0.2-1.3) mg/dL AST (17-59) IU/L ALT (<50) IU/L Alkaline Phosphatase (38-126) U/L Total Creatine Kinase 145 (55-170) U/L CK-MB (CK-2) 3.38 H (<2.37) ng/mL CK-MB (CK-2) Rel Index 2.3 (1.5-5.0) % Troponin I < 0.012 (0.01-0.034) ng/mL NT-Pro-B Natriuret Pep (<125) pg/mL Total Protein (6.3-8.2) g/dL Albumin (3.5-5.0) g/dL Globulin (1.7-4.1) g/dL Albumin/Globulin Ratio (1.0-2.8) Lipase (23-300) U/L MDM Narrative Medical decision making narrative: Patient has very reassuring history and physical exam. Symptoms were intense but brief and only present last night. Labs are very reassuring, EKG showed no occlusive findings. Patient is asymptomatic for the duration of his visit. Multiple causes of chest pain considered including FL, PE, pneumothorax, pneumonia, aortic dissection, and pleurisy. Patient reports no radiation, no diaphoresis, no provocation with exertion, and no vomiting. Return precautions discussed and questions answered to his apparent satisfaction Discharge Plan Departure Patient Disposition: Home Clinical Impression: Atypical chest pain Instructions: DI for Atypical Chest Pain Activity Restrictions/Additional Instructions: *You have been diagnosed with [low risk chest pain, as we discussed your history and physical exam as well as labs, EKGs and imaging are very reassuring and there is no indication of heart attack, anemia, bowel obstruction or other life-threatening diagnosis that would require a specific or immediate intervention *What to do: *Please continue to take your regular medications as directed. [ ] New medication prescriptions sent to your pharmacy: [ ] [ ] New medication written as a paper prescription [ x] No new medications given *Please follow up with your primary care provider in 2-3 days, call for an appointment. Let them know you were seen in the Emergency Department and that we ask that you be seen in follow up. We will electronically transmit a record of today's note if your PCP is in our system *If you do not have a primary care provider please contact the [facility] Resource line at [phone]. They will ask some questions about your medical history and help get you set up with a doctor in the community. *Return to Emergency Department if you should have any new, worsening or concerning symptoms, such as [fever greater than 101 F, shaking chills, worsening pain, persistent vomiting or other bothersome symptoms] Prescriptions: No Action nifedipine 60 MG tablet extended release 24hr 60 mg PO BID Qty: 0 0RF cyclobenzaprine 10 MG tablet 10 mg PO BID Qty: 0 0RF atorvastatin [Lipitor] 40 MG tablet 40 mg PO QAM Qty: 0 0RF fenofibrate 160 MG tablet 160 mg PO DAILY Qty: 0 0RF sennosides [senna] 8.6 MG tablet 2 tab PO Q DAY Qty: 0 0RF loratadine [Claritin] 10 MG tablet 10 mg PO DAILY PRN (Reason: Allergy Symptoms) Qty: 0 0RF pantoprazole 40 MG tablet,delayed release (DR/EC) 40 mg PO 0600,2100 Qty: 60 0RF oxycodone [OxyContin] 10 mg Tablet,Oral Only,Ext.Rel.12 Hr 10 mg PO BID 0RF docusate calcium 240 mg capsule 240 mg PO TID 0RF oxycodone-acetaminophen 5-325 mg tablet 1 tab PO BID PRN (Reason: pain) 0RF oxycodone-acetaminophen 10-325 mg tablet 1 tab PO Q8H PRN (Reason: pain) 0RF lisinopril 40 mg tablet 40 mg PO DAILY 0RF fluticasone propionate 50 mcg/actuation spray,suspension 1 spray Intranasal DIRECTED 0RF chlorthalidone 25 mg Tablet 25 mg PO DAILY Qty: 30 0RF labetalol 100 mg Tablet 100 mg PO BID Qty: 60 0RF Referrals: Kristopher Espinoza MD [Primary Care Provider] -
[2022-04-08 12:48] LABS: Add Manual Diff / Slide Review NO; Basophils Absolute Auto 0 /uL (0-100); Basophils Percent Auto 0.6 % (0-2); Eosinophils Absolute Auto 100 /uL (0-450); Eosinophils Percent Auto 1.5 % (2-4); Hematocrit 34.7 % (41-53); Hemoglobin 11.8 g/dL (13.5-17.5); Lymphocytes Absolute Auto 700 /uL (1100-4500); Lymphocytes Percent Auto 9.5 % (25-40); Mean Corpuscular HGB Conc 33.9 % (30-36); Mean Corpuscular Hemoglobin 25.8 PG (26-34); Monocytes Absolute Auto 400 /uL (0-900); Monocytes Percent Auto 5.1 % (3-14); Neutrophils Absolute Auto 6200 /uL (1500-7000); Neutrophils Percent Auto 83.3 % (50-75); Platelet Count 319 X10^3/uL (150-400); Red Blood Cell Count 4.57 X10^6/uL (4.5-5.9); Red Cell Distribution Width 15.4 % (11.6-14.8); White Blood Cell Count 7.5 X10^3/uL (4.5-11.0)
--- NOTE | 2022-04-08 12:50 | PC.NURSE ---
Pt states he is uncomfortable with legs up, declines stretcher, provided wheelchair to sit in.
[2022-04-08] MEDS: SODIUM CHLORIDE 0.9% 1,000 ML 150 ML IV (12:59)
[2022-04-08 13:06] LABS: INR 1.2 (0.9-1.3); Prothrombin Time 13.7 SECONDS (10.1-12.7)
[2022-04-08 13:09] LABS: PTT Partial Thromboplastin Tim 35 SECONDS (26.4-36.2)
[2022-04-08 13:10] LABS: Alanine Aminotransferase 21 IU/L (<50); Albumin 3.9 g/dL (3.5-5.0); Albumin Globulin Ratio 1.4 (1.0-2.8); Alkaline Phosphatase 51 U/L (38-126); Aspartate Aminotransferase 30 IU/L (17-59); BUN Creatinine Ratio 14.3 (6-22); Bilirubin Total 0.3 mg/dL (0.2-1.3); Blood Urea Nitrogen 30 mg/dL (9-20); Calcium 9.3 mg/dL (8.4-10.2); Carbon Dioxide 27 mmol/L (22-32); Chloride 98 mmol/L (98-107); Creatine Kinase 169 U/L (55-170); D Dimer < 200 ng/mL (<230); Estimated Glomerular Filt Rate 33 mL/min (>60); Globulin 2.8 g/dL (1.7-4.1); Glucose 223 mg/dL (80-110); HEMOLYSIS < 15 (0-50); Lipase 264 U/L (23-300); Sodium 133 mmol/L (137-145); Total Protein 6.7 g/dL (6.3-8.2)
[2022-04-08 13:22] LABS: NT-proBNP (BNP-Adult 18+) 458 pg/mL (<125); Troponin I < 0.012 ng/mL (0.01-0.034)
[2022-04-08 13:25] LABS: CKMB % Relative Index 2.3 % (1.5-5.0); Creatine Kinase MB 3.95 ng/mL (<2.37)
[2022-04-08 14:59] LABS: Creatine Kinase 145 U/L (55-170)
[2022-04-08 15:11] LABS: Troponin I < 0.012 ng/mL (0.01-0.034)
[2022-04-08 15:14] LABS: CKMB % Relative Index 2.3 % (1.5-5.0); Creatine Kinase MB 3.38 ng/mL (<2.37)
== END 2022-04-08 16:07 | disposition home or self-care (01) ==
PROVIDERS: Emergency Provider Emergency Medicine; Family Provider Internal Medicine; PCP Internal Medicine
DX: R07.89 Other chest pain (principal); R10.9 Unspecified abdominal pain
CPT/HCPCS: 36415; 71045; 80053; 82550; 82553; 83690; 83880; 84484; 85025; 85379; 85610; 85730; 93005; 99284

== ENCOUNTER 2022-08-17 17:18 | Inpatient (IN) | payer MEDICARE, OTHER, SELFPAY ==
[2021-03-06 03:07] VITALS: BMI 31.9
[2022-08-17] VITALS (25 sets, daily range): BP systolic 135–175; BP diastolic 53–71; PULSE 74–92; RESP 11–20; TEMP 36.5–36.7; O2SAT 96–100; BMI 65.4
--- NOTE | 2022-08-17 17:48 | PC.NURSE ---
Pt very weak, x2 assist to sit to side of bed, pt attempting to stand without assistance, educated on need to call for assistance. Pt unable to provide urine sample in urinal at this time. Assisted to clean dried stool streaking down pt legs. Pt reports a couple days of diarrhea, daughter reports pt has been urinating on himself recently and not getting up, also has not been eating. Pt is aaox3/3, closing eyes often, easily arousable.
[2022-08-17 17:53] LABS: Add Manual Diff / Slide Review NO; Basophils Absolute Auto 0 /uL (0-100); Basophils Percent Auto 0.2 % (0-2); Eosinophils Absolute Auto 0 /uL (0-450); Lymphocytes Absolute Auto 600 /uL (1100-4500); Lymphocytes Percent Auto 3.7 % (25-40); Mean Corpuscular HGB Conc 34.1 % (30-36); Mean Corpuscular Hemoglobin 25.6 PG (26-34); Mean Corpuscular Volume 74.9 fL (80-100); Monocytes Absolute Auto 600 /uL (0-900); Monocytes Percent Auto 3.6 % (3-14); Neutrophils Absolute Auto 14600 /uL (1500-7000); Neutrophils Percent Auto 92.5 % (50-75); Platelet Count 311 X10^3/uL (150-400); Red Blood Cell Count 1.96 X10^6/uL (4.5-5.9); Red Cell Distribution Width 15.8 % (11.6-14.8); White Blood Cell Count 15.8 X10^3/uL (4.5-11.0)
[2022-08-17 17:57] LABS: INR 1.3 (0.9-1.3)
[2022-08-17 18:00] LABS: PTT Partial Thromboplastin Tim 24 SECONDS (26-36)
[2022-08-17 18:02] LABS: Hematocrit 14.7 % (41-53)
[2022-08-17 18:13] LABS: Alanine Aminotransferase 17 IU/L (<50); Albumin Globulin Ratio 1.3 (1.0-2.8); Alkaline Phosphatase 29 U/L (38-126); Aspartate Aminotransferase 26 IU/L (17-59); Bilirubin Total 0.5 mg/dL (0.2-1.3); Blood Urea Nitrogen 94 mg/dL (9-20); Calcium 8.9 mg/dL (8.4-10.2); Carbon Dioxide 24 mmol/L (22-32); Chloride 99 mmol/L (98-107); Creatine Kinase 51 U/L (55-170); Estimated Glomerular Filt Rate 29 mL/min (>60); Globulin 2.3 g/dL (1.7-4.1); Glucose 369 mg/dL (80-110); HEMOLYSIS < 15 (0-50); Potassium 3.1 mmol/L (3.4-5.1); Sodium 134 mmol/L (137-145); Total Protein 5.3 g/dL (6.3-8.2)
--- NOTE | 2022-08-17 18:22 | ED_ITS ---
HPI - General Adult General Chief complaint: Weakness Stated complaint: Lethargic, Bed ridden Time Seen by Provider: 08/17/22 18:03 Source: patient and family Mode of arrival: Wheelchair History of Present Illness HPI narrative: 72-year-old gentleman with a history of hypertension, hyperlipidemia, history of esophageal dysphagia and reflux esophagitis with EGD June 2020 showing no evidence of esophagitis, no varices mild hypertonicity at the GE junction. He has a history of a gastric ulcer and the distant past and continues on pantop razole 40 mg daily., He consumes no alcohol, does have chronic pain syndrome and takes regular opiates without nonsteroidals, rheumatoid arthritis and stage 3 chronic kidney disease. States that he was feeling fine until approximately 36 hours ago when he began having profuse dark diarrhea. Today he found that he was so weak he had difficulty getting out of bed due to global weakness. He describes no vomiting, no pain, palpitations, dyspnea, orthopnea, lower extremity edema, headaches, acute neurologic findings. He describes no fevers, cough or other infectious disease symptoms. He has never had upper GI bleeding issues previously. Related Data Home Medications Medication Instructions Recorded Confirmed atorvastatin 40 mg tablet (Lipitor) 40 mg PO QAM ##0 07/05/17 08/18/22 fenofibrate 160 mg tablet 160 mg PO DAILY ##0 07/05/17 08/18/22 nifedipine 60 mg tablet,extended 60 mg PO BID ##0 07/05/17 08/18/22 release 24 hr docusate calcium 240 mg capsule 240 mg PO TID 01/20/19 08/18/22 fluticasone propionate 50 1 spray intranasal DIRECTED 01/20/19 08/18/22 mcg/actuation nasal spray,suspension lisinopril 40 mg tablet 40 mg PO DAILY 01/20/19 08/18/22 oxycodone-acetaminophen 10 mg-325 1 tab PO Q8H PRN pain 01/20/19 08/18/22 mg tablet oxycodone 10 mg tablet,crush 10 mg PO BID 09/02/19 08/18/22 resistant,extended release 12 hr (OxyContin) Previous Rx's Medication Instructions Recorded chlorthalidone 25 mg tablet 25 mg PO DAILY #30 tabs 03/07/21 labetalol 100 mg tablet 100 mg PO BID #60 tabs 03/07/21 Allergies Allergy/AdvReac Type Severity Reaction Status Date / Time No Known Allergies Allergy Verified 06/27/21 11:00 Review of Systems Review of Systems Narrative: Remainder of complete review of systems is otherwise unremarkable except for that included in the HPI. Patient History Medical History Barretts esophagus Chronic pain syndrome Diabetes type 2, uncontrolled Dysphagia Essential hypertension Gastric ulcer Hyperlipidemia PTSD (post-traumatic stress disorder) Rheumatoid arthritis Surgical History History of esophagogastroduodenoscopy (EGD) Family History Father Stroke Mother Stroke Other No pertinent family history Social History household members: none Smoking Status: Former smoker Smoking Status: Former smoker tobacco type: cigarettes alcohol intake frequency: 0-2 drinks per day Substance Use Type: does not use Exam Initial Vital Signs Initial Vital Signs: Vital Signs Temperature 97.7 F 08/17/22 17:18 Pulse Rate 78 08/17/22 17:18 Respiratory Rate 16 08/17/22 17:18 Blood Pressure 138/65 08/17/22 17:18 Pulse Oximetry 100 08/17/22 17:18 Oxygen Delivery Method 08/17/22 17:18 General: Very pale but in no acute distress. Able to give a complete and coherent history. Well-nourished well-developed HEENT: Moist mucous membranes, normal sclera with reactive pupils, Neck: No JVD, supple Respiratory: Lungs are clear to auscultation, no wheezing no rales no rhonchi. Full and symmetrical air movement Cardiac: Regular rate and rhythm no murmurs no bruits Abdomen: Soft, nontender, hyperactive bowel tones, no flank pain. Rectal exam is deferred as he has large amounts of obvious black diarrhea Skin: Warm and dry, no rashes Neurologic: Globally weak but Grossly neurologically intact with no obvious asymmetries or abnormalities Extremities: No trauma, well perfused, 1+ lower extremity edema bilaterally Psych: Cooperative, appropriate insight and affect Course Orders Ordered: Hydrocodone Bitart/Acetaminophen (Hydrocodone/Acet 10/325 Tablet) 1 tab PO Q4HR PRN PRN Reason: Pain, Severe (7-10) Dextrose/Sodium Chloride (Dextrose 5%-0.9% Ns) 1,000 mls @ 100 mls/hr IV CONT CAROL Morphine Sulfate (Morphine 2 Mg/Ml Inj) 2 mg IV Q4H PRN PRN Reason: Breakthrough pain only (8-10) Ondansetron HCl (Ondansetron 4 Mg/2 Ml Inj) 4 mg IV Q8HR PRN PRN Reason: Nausea And Vomiting Pantoprazole Sodium (Pantoprazole 40 Mg Vial) 40 mg IV BID CAROL Discontinued Medications Tranexamic Acid 1,000 mg/ (Sodium Chloride) 100 mls @ 200 mls/hr IV NOW ONE Stop: 08/17/22 19:47 Last Infusion: 08/17/22 20:30 Dose: 0 mls/hr Documented By: Admin: 08/17/22 19:53 Dose: 200 mls/hr Documented By: MAX Pantoprazole Sodium (Pantoprazole 40 Mg Vial) 80 mg IV NOW ONE Stop: 08/17/22 18:43 Last Admin: 08/17/22 19:20 Dose: 80 mg Documented By: MAX Vital Signs Vital signs: Vital Signs - 8 hr 08/17/22 17:18 08/17/22 17:48 08/17/22 18:00 Temperature 97.7 F Pulse Rate 78 74 Respiratory Rate 16 13 Blood Pressure 138/65 148/68 H Pulse Oximetry 100 99 Oxygen Delivery Method Room Air Room Air 08/17/22 18:00 08/17/22 18:26 08/17/22 18:26 Temperature Pulse Rate 74 76 Respiratory Rate 12 14 Blood Pressure 175/71 H Pulse Oximetry 99 100 Oxygen Delivery Method Room Air Room Air 08/17/22 18:30 08/17/22 18:31 08/17/22 18:31 Temperature Pulse Rate 80 76 Respiratory Rate 17 13 Blood Pressure 135/63 Pulse Oximetry 98 100 Oxygen Delivery Method Room Air Room Air Medical Decision Making Lab Data Result diagrams: 08/17/22 17:35 08/17/22 17:35 Labs: Lab Results 08/17/22 08/17/22 08/17/22 Range/Units 17:35 17:35 17:35 WBC 15.8 H (4.5-11.0) X10^3/uL RBC 1.96 L (4.5-5.9) X10^6/uL Hgb 5.0 L* (13.5-17.5) g/dL Hct 14.7 L* (41-53) % MCV 74.9 L (80-100) fL MCH 25.6 L (26-34) PG MCHC 34.1 (30-36) % RDW 15.8 H (11.6-14.8) % Plt Count 311 (150-400) X10^3/uL Neut % (Auto) 92.5 H (50-75) % Lymph % (Auto) 3.7 L (25-40) % [place] % (Auto) 3.6 (3-14) % Eos % (Auto) 0.0 L (2-4) % Baso % (Auto) 0.2 (0-2) % Neut # (Auto) 66179 H (0486-2190) /uL Lymph # (Auto) 600 L (0458-8562) /uL [place] # (Auto) 600 (0-900) /uL Eos # (Auto) 0 (0-450) /uL Baso # (Auto) 0 (0-100) /uL PT 15.0 H (10.1-12.7) SECONDS INR 1.3 (0.9-1.3) APTT 24 L (26-36) SECONDS Sodium 134 L (137-145) mmol/L Potassium 3.1 L (3.4-5.1) mmol/L Chloride 99 (98-107) mmol/L Carbon Dioxide 24 (22-32) mmol/L BUN 94 H (9-20) mg/dL Creatinine 2.29 H (0.66-1.25) mg/dL Estimated GFR 29 L (>60) mL/min BUN/Creatinine Ratio 41.0 H (6-22) Glucose 369 H (80-110) mg/dL Calcium 8.9 (8.4-10.2) mg/dL Total Bilirubin 0.5 (0.2-1.3) mg/dL AST 26 (17-59) IU/L ALT 17 (<50) IU/L Alkaline Phosphatase 29 L (38-126) U/L Total Creatine Kinase (55-170) U/L CK-MB (CK-2) CK-MB (CK-2) Rel Index Troponin I (0.01-0.034) ng/mL Total Protein 5.3 L (6.3-8.2) g/dL Albumin 3.0 L (3.5-5.0) g/dL Globulin 2.3 (1.7-4.1) g/dL Albumin/Globulin Ratio 1.3 (1.0-2.8) Urine RBC (0-5/HPF) Urine WBC (0-5/HPF) Urine Bacteria (None) Ur Culture Indicated? SARS-CoV-2 (PCR) (Negative) Blood Type Antibody Screen Crossmatch 08/17/22 08/17/22 08/17/22 Range/Units 17:35 17:35 18:50 WBC (4.5-11.0) X10^3/uL RBC (4.5-5.9) X10^6/uL Hgb (13.5-17.5) g/dL Hct (41-53) % MCV (80-100) fL MCH (26-34) PG MCHC (30-36) % RDW (11.6-14.8) % Plt Count (150-400) X10^3/uL Neut % (Auto) (50-75) % Lymph % (Auto) (25-40) % [place] % (Auto) (3-14) % Eos % (Auto) (2-4) % Baso % (Auto) (0-2) % Neut # (Auto) (9288-8990) /uL Lymph # (Auto) (8145-6210) /uL [place] # (Auto) (0-900) /uL Eos # (Auto) (0-450) /uL Baso # (Auto) (0-100) /uL PT (10.1-12.7) SECONDS INR (0.9-1.3) APTT (26-36) SECONDS Sodium (137-145) mmol/L Potassium (3.4-5.1) mmol/L Chloride (98-107) mmol/L Carbon Dioxide (22-32) mmol/L BUN (9-20) mg/dL Creatinine (0.66-1.25) mg/dL Estimated GFR (>60) mL/min BUN/Creatinine Ratio (6-22) Glucose (80-110) mg/dL Calcium (8.4-10.2) mg/dL Total Bilirubin (0.2-1.3) mg/dL AST (17-59) IU/L ALT (<50) IU/L Alkaline Phosphatase (38-126) U/L Total Creatine Kinase 51 L (55-170) U/L CK-MB (CK-2) TNP CK-MB (CK-2) Rel Index TNP Troponin I 0.025 (0.01-0.034) ng/mL Total Protein (6.3-8.2) g/dL Albumin (3.5-5.0) g/dL Globulin (1.7-4.1) g/dL Albumin/Globulin Ratio (1.0-2.8) Urine RBC (0-5/HPF) Urine WBC (0-5/HPF) Urine Bacteria (None) Ur Culture Indicated? SARS-CoV-2 (PCR) Negative (Negative) Blood Type B Positive Antibody Screen Negative Crossmatch See Detail 08/17/22 Range/Units 19:00 WBC (4.5-11.0) X10^3/uL RBC (4.5-5.9) X10^6/uL Hgb (13.5-17.5) g/dL Hct (41-53) % MCV (80-100) fL MCH (26-34) PG MCHC (30-36) % RDW (11.6-14.8) % Plt Count (150-400) X10^3/uL Neut % (Auto) (50-75) % Lymph % (Auto) (25-40) % [place] % (Auto) (3-14) % Eos % (Auto) (2-4) % Baso % (Auto) (0-2) % Neut # (Auto) (5377-5074) /uL Lymph # (Auto) (6014-2657) /uL [place] # (Auto) (0-900) /uL Eos # (Auto) (0-450) /uL Baso # (Auto) (0-100) /uL PT (10.1-12.7) SECONDS INR (0.9-1.3) APTT (26-36) SECONDS Sodium (137-145) mmol/L Potassium (3.4-5.1) mmol/L Chloride (98-107) mmol/L Carbon Dioxide (22-32) mmol/L BUN (9-20) mg/dL Creatinine (0.66-1.25) mg/dL Estimated GFR (>60) mL/min BUN/Creatinine Ratio (6-22) Glucose (80-110) mg/dL Calcium (8.4-10.2) mg/dL Total Bilirubin (0.2-1.3) mg/dL AST (17-59) IU/L ALT (<50) IU/L Alkaline Phosphatase (38-126) U/L Total Creatine Kinase (55-170) U/L CK-MB (CK-2) CK-MB (CK-2) Rel Index Troponin I (0.01-0.034) ng/mL Total Protein (6.3-8.2) g/dL Albumin (3.5-5.0) g/dL Globulin (1.7-4.1) g/dL Albumin/Globulin Ratio (1.0-2.8) Urine RBC 0-1/hpf (0-5/HPF) Urine WBC 0-1/hpf (0-5/HPF) Urine Bacteria None seen (None) Ur Culture Indicated? Cult not indicated SARS-CoV-2 (PCR) (Negative) Blood Type Antibody Screen Crossmatch Point of Care Testing Glucose POC 338 Urine Dip Bedside Urine Glucose 250 mg/dl Bedside Urine Bilirubin - Negative Bedside Urine Ketone - Negative Urine Specific [place] 1.020 Bedside Urine Occult Blood - Negative Bedside Urine Protein + 30 Bedside Urine Nitrite - Negative Bedside Urine Leukocytes - Negative Esterase Point of care testing: Point of Care Testing Glucose POC 338 Urine Dip Bedside Urine Glucose 250 mg/dl Bedside Urine Bilirubin - Negative Bedside Urine Ketone - Negative Urine Specific [place] 1.020 Bedside Urine Occult Blood - Negative Bedside Urine Protein + 30 Bedside Urine Nitrite - Negative Bedside Urine Leukocytes - Negative Esterase ECG Data Interpretation: Sinus rhythm at a rate of 78 Leftward axis, left ventricular hypertrophy Nonspecific ST T wave changes without acute ischemia MDM Narrative Medical decision making narrative: 72-year-old gentleman with history of gastric ulcer, reflux on proton pump inhibitor no alcohol use and no nonsteroidals presents with at least 36 hours of profuse black stool increasing weakness to the point he was unable to get out of bed this morning. Initial hemoglobin is 5 which is a significant drop. He does appear to be continuing to bleed with hyperactive bowel tones and a sense that more diarrhea will be coming soon. He is not having any vomiting. 4 units of packed red blood cells along with FFP are ordered. He is hemodynamically stable at this point Care is reviewed with Dr. Lorenz, surgery. She will consult tomorrow with anticipation of EGD. She did recommend TXA which is facilitated. Care is reviewed with the hospitalist who accepts admission for GI bleed with acute blood loss anemia because of the severity of the anemia and the ongoing bleeding patient will go to the critical care unit for the evening At this point there is no evidence significant infection or acute cardiac abnormalities. Patient is informed of all findings and questions are answered. Critical Care Time Critical Care Time Critical Care Time: Yes Total Critical Care Time: 33 Attestation: Critical care time is separate from other billable procedures. There is a high probability of a significant, sudden or life-threatening deterioration that requires my full and direct attention, intervention and personal management. This critical care time includes consultation with family and other consulting doctors, review of records, and interpretation of data from labs, EKGs and imaging as well as managements of active GI blood loss discussion with multiple consultants and management of blood and blood factor replacement. Discharge Plan Departure Patient Disposition: Admitted As Inpatient Clinical Impression: GI bleed, ABLA (acute blood loss anemia) Admit Date/Time: 08/17/22 19:23 Admit Provider: Juanita Spears
[2022-08-17 18:24] LABS: Troponin I 0.025 ng/mL (0.01-0.034)
[2022-08-17 19:10] LABS: COVID19 -Nasal RAPID Negative (Negative)
[2022-08-17] MEDS: PANTOPRAZOLE 40 MG VIAL 80 MG IV (19:20)
[2022-08-17] MEDS: TRANEXAMIC ACID 1,000 MG in SODIUM CHLORIDE 0.9% 100 ML 200 MG IV (19:53)
--- NOTE | 2022-08-17 20:47 | PM.HP.1 ---
History of Present Illness History of Present Illness Date Patient Seen: 08/17/22 Date of Onset of Symptoms: 08/16/22 Chief complaint: Lethargic, Bed ridden Narrative: 72-year-old gentleman with a history of hypertension, hyperlipidemia, history of esophageal dysphagia and reflux esophagitis with EGD June 2020 showing no evidence of esophagitis, no varices mild hypertonicity at the GE junction.?He has a history of a gastric ulcer and the distant past and continues on pantoprazole 40 mg daily. No Smoking and alcohol intake. Patient not feeling well past 2 days and today he started having significant darker stools and, feeling dizzy, headaches. Today he found that he was so weak he had difficulty getting out of bed due to global weakness.? He describes no vomiting, no pain, palpitations, dyspnea, orthopnea, lower extremity edema, headaches, acute neurologic findings.? He describes no fevers, cough or other infectious disease symptoms.? He has never had upper GI bleeding issues previously. His daughter brought him to ER for further evaluation. In the ER he found to be significantly anemic with hemoglobin of 5, active signs of GI bleed with dark colored stools, hospitalist team called for further admission. Patient History Medical History Barretts esophagus Chronic pain syndrome Diabetes type 2, uncontrolled Dysphagia Essential hypertension Gastric ulcer Hyperlipidemia PTSD (post-traumatic stress disorder) Rheumatoid arthritis Surgical History History of esophagogastroduodenoscopy (EGD) Family & Social History Family History Father Stroke Mother Stroke Other No pertinent family history Social History: household members none Safety & Behavioral: Feels Safe in Current Yes Environment Been Physically Hurt or No Threatened By a Person Tobacco & Substance use: Smoking Status Former smoker alcohol intake frequency 0-2 drinks per day Substance Use Type does not use Meds Home Medications and Allergies Home Medications Medication Instructions Recorded Confirmed Type atorvastatin 40 mg tablet (Lipitor) 40 mg PO QAM ##0 07/05/17 03/06/21 History cyclobenzaprine 10 mg tablet 10 mg PO BID ##0 07/05/17 03/06/21 History fenofibrate 160 mg tablet 160 mg PO DAILY ##0 07/05/17 03/06/21 History loratadine 10 mg tablet (Claritin) 10 mg PO DAILY PRN Allergy 07/05/17 03/06/21 History Symptoms ##0 nifedipine 60 mg tablet,extended 60 mg PO BID ##0 07/05/17 03/06/21 History release 24 hr sennosides 8.6 mg tablet (senna) 2 tab PO Q DAY ##0 07/05/17 03/06/21 History pantoprazole 40 mg tablet,delayed 40 mg PO 0600,2100 #60 tabs 07/08/17 03/06/21 Rx release docusate calcium 240 mg capsule 240 mg PO TID 01/20/19 03/06/21 History fluticasone propionate 50 1 spray intranasal DIRECTED 01/20/19 03/06/21 History mcg/actuation nasal spray,suspension lisinopril 40 mg tablet 40 mg PO DAILY 01/20/19 03/06/21 History oxycodone-acetaminophen 10 mg-325 1 tab PO Q8H PRN pain 01/20/19 03/06/21 History mg tablet oxycodone-acetaminophen 5 mg-325 1 tab PO BID PRN pain 01/20/19 03/06/21 History mg tablet oxycodone 10 mg tablet,crush 10 mg PO BID 09/02/19 03/06/21 History resistant,extended release 12 hr (OxyContin) chlorthalidone 25 mg tablet 25 mg PO DAILY #30 tabs 03/07/21 Rx labetalol 100 mg tablet 100 mg PO BID #60 tabs 03/07/21 Rx Allergies Allergy/AdvReac Type Severity Reaction Status Date / Time No Known Allergies Allergy Verified 06/27/21 11:00 Review of Systems Review of Systems Narrative: Reviewed all systems, negative other than as mentioned above in HPI. Exam Vital Signs (past 8 hours): - 08/17/22 17:18 08/17/22 17:48 08/17/22 18:00 Temperature 97.7 F Pulse Rate 78 74 Respiratory Rate 16 13 Blood Pressure 138/65 148/68 H Pulse Oximetry 100 99 Oxygen Delivery Method Room Air Room Air 08/17/22 18:00 08/17/22 18:26 08/17/22 18:26 Temperature Pulse Rate 74 76 Respiratory Rate 12 14 Blood Pressure 175/71 H Pulse Oximetry 99 100 Oxygen Delivery Method Room Air Room Air 08/17/22 18:30 08/17/22 18:31 08/17/22 18:31 Temperature Pulse Rate 80 76 Respiratory Rate 17 13 Blood Pressure 135/63 Pulse Oximetry 98 100 Oxygen Delivery Method Room Air Room Air 08/17/22 19:31 08/17/22 19:47 08/17/22 19:00 Temperature 97.9 F 97.9 F Pulse Rate 81 80 75 Respiratory Rate 15 20 13 Blood Pressure 161/69 H 157/70 H Pulse Oximetry 100 Oxygen Delivery Method Room Air 08/17/22 19:30 08/17/22 19:32 08/17/22 19:32 Temperature Pulse Rate 78 79 Respiratory Rate 14 16 Blood Pressure 161/69 H Pulse Oximetry 99 99 Oxygen Delivery Method Room Air Room Air 08/17/22 19:49 08/17/22 19:49 08/17/22 20:00 Temperature Pulse Rate 80 Respiratory Rate 15 Blood Pressure 157/70 H 154/67 H Pulse Oximetry Oxygen Delivery Method 08/17/22 20:00 08/17/22 20:15 08/17/22 20:15 Temperature Pulse Rate 79 84 Respiratory Rate 12 19 Blood Pressure 163/70 H Pulse Oximetry 100 100 Oxygen Delivery Method Room Air Room Air Oxygen Delivery Method Room Air Narrative Exam Narrative: Patient does seem to be mildly confused with prolonged conversations but able to answer questions when repeated. Does feel dizzy when he sits up. Mild abdominal discomfort on deep palpation in epigastric area. Pallor noted. Generalized weakness noted. No focal deficits. No organomegaly. No pedal edema. Constitutional, HEENT, eyes, cardiovascular, pulmonary, GI, skin, neuro, psych examination done, negative, other than as mentioned above. Objective Labs Result Diagrams: 08/17/22 17:35 08/17/22 17:35 Labs: Laboratory Results - last 24 hr 08/17/22 08/17/22 08/17/22 17:35 17:35 17:35 WBC 15.8 H RBC 1.96 L Hgb 5.0 L* Hct 14.7 L* MCV 74.9 L MCH 25.6 L MCHC 34.1 RDW 15.8 H Plt Count 311 Neut % (Auto) 92.5 H Lymph % (Auto) 3.7 L [place] % (Auto) 3.6 Eos % (Auto) 0.0 L Baso % (Auto) 0.2 Neut # (Auto) 26244 H Lymph # (Auto) 600 L [place] # (Auto) 600 Eos # (Auto) 0 Baso # (Auto) 0 PT 15.0 H INR 1.3 APTT 24 L Sodium 134 L Potassium 3.1 L Chloride 99 Carbon Dioxide 24 BUN 94 H Creatinine 2.29 H Estimated GFR 29 L BUN/Creatinine Ratio 41.0 H Glucose 369 H Calcium 8.9 Total Bilirubin 0.5 AST 26 ALT 17 Alkaline Phosphatase 29 L Total Creatine Kinase CK-MB (CK-2) CK-MB (CK-2) Rel Index Troponin I Total Protein 5.3 L Albumin 3.0 L Globulin 2.3 Albumin/Globulin Ratio 1.3 SARS-CoV-2 (PCR) Blood Type Antibody Screen Crossmatch 08/17/22 08/17/22 08/17/22 17:35 17:35 18:50 WBC RBC Hgb Hct MCV MCH MCHC RDW Plt Count Neut % (Auto) Lymph % (Auto) [place] % (Auto) Eos % (Auto) Baso % (Auto) Neut # (Auto) Lymph # (Auto) [place] # (Auto) Eos # (Auto) Baso # (Auto) PT INR APTT Sodium Potassium Chloride Carbon Dioxide BUN Creatinine Estimated GFR BUN/Creatinine Ratio Glucose Calcium Total Bilirubin AST ALT Alkaline Phosphatase Total Creatine Kinase 51 L CK-MB (CK-2) TNP CK-MB (CK-2) Rel Index TNP Troponin I 0.025 Total Protein Albumin Globulin Albumin/Globulin Ratio SARS-CoV-2 (PCR) Negative Blood Type B Positive Antibody Screen Negative Crossmatch See Detail Assessment & Plan Assessment and plan (1) ABLA (acute blood loss anemia): Status: Acute (2) Acute GI bleeding: Status: Acute (3) Generalized weakness: Status: Acute (4) Hypertensive urgency: Status: Acute (5) Headache: Qualifiers: Headache chronicity pattern: acute headache Headache type: unspecified Intractability: not intractable Qualified Code(s): R51.9 - Headache, unspecified Status: Acute Assessment & Plan narrative: Admit to ICU for severe anemia requiring 4 units of blood transfusion and FFP and close monitoring High chance of deterioration given active GI bleed signs and significant orthostatic symptoms Surgery already called, NPO, EGD in the morning Blood transfusions, repeat labs in the morning. Watch for any signs of fluid overload given multiple transfusions Cardiac monitoring, pulse oximetry Cautioned with blood pressure medications, continue to monitor DVT and GI prophylaxis reviewed, SCDs, IV Protonix Patient is full code Daughter was updated by ER physician regarding the plan, I offered to talk to her, patient declined permission to call at night at this time Care plan discussed with the patient and answered all questions Time Spent With Patient Critical Care time: I spent a total of [] minutes of critical care time on this patient's care today; this time is exclusive of procedural time.
[2022-08-17 21:23] LABS: Bacteria Urine None Seen; Culture Indicated Urine Cult Not Indicated; RBC Urine 0-1/HPF (0-5/HPF); WBC Urine 0-1/HPF (0-5/HPF)
[2022-08-18] VITALS (22 sets, daily range): BP systolic 150–207; BP diastolic 59–91; PULSE 71–100; RESP 16–25; TEMP 36.2–36.9; O2SAT 97–100; BMI 29.7
--- NOTE | 2022-08-18 | PATH_ITS ---
[facility] Accession Number: [id number] . 01 Material submitted: . body - NO SITE DESIGNATED . 01 Clinical history: . A: H. PYLORI LETHARGIC, BED RIDDEN . 01 Diagnosis: Gastric Body, Biopsy: Gastric antral and body-type mucosa with mild chronic inflammation and features of reactive gastropathy. Negative for Helicobacter organisms by immunohistochemistry. Negative for intestinal metaplasia. Negative for dysplasia or malignancy. [facility] 08/28/2022 1434 Local . 01 Electronically signed: . Laura Denise MD, Pathologist NPI- [id number] . 01 Gross description: . NO SITE DESIGNATED: Received in formalin is 1 fragment(s) of lyons, soft tissue measuring 0.4 x 0.3 x 0.1 cm submitted entirely in 1 cassette(s) /[facility] 08/21/2022 1257 Local . 01 Microscopic: . A. An immunohistochemical stain was performed to evaluate for Helicobacter organisms and is negative. The control stain showed appropriate reactivity. . * This test was developed and its performance characteristics determined by [facility]. It has not been cleared or approved by the U.S. Food and Drug Administration. The FDA has determined that such clearance or approval is not necessary. This test is used for clinical purposes. It should not be regarded as investigational or for research. . 01 Pathologist provided ICD-10: K29.70 . 01 CPT . 961747, Y40045 Performed at: 01 [facility] [address] [place] [address], [place], [place] [id number] MD Moris Davis MD Phone: [phone]
--- NOTE | 2022-08-18 00:16 | PC.ADMIT ---
[email or web address] W [facility] Admission Note: Patient admitted to AC unit from ED at 2130. Transferred to bed via slideboard. A&O x 4, able to make needs known. Oriented to room and shown how to use call light. Bed in low position and brakes are locked. BS 338. Per Dr. Spears, IV fluids can wait if needed to avoid fluid overload and if blood finishes early order AM labs early. H & H /.7 FFP started in ED, completed in AC. 1 unit PRBC completed in ED prior to arrival. VSS, afebrile. Consent in chart. The patient,Nelson Goldstein,72 y/o, was given written information regarding hospital policies, unit procedures and contact persons. Patient's smoking status: Former smoker. Vital Signs - 8 hr 08/17/22 17:18 08/17/22 17:48 08/17/22 18:00 Temperature 97.7 F Pulse Rate 78 74 Respiratory Rate 16 13 Blood Pressure 138/65 148/68 H Pulse Oximetry 100 99 Oxygen Delivery Method Room Air Room Air 08/17/22 18:00 08/17/22 18:26 08/17/22 18:26 Temperature Pulse Rate 74 76 Respiratory Rate 12 14 Blood Pressure 175/71 H Pulse Oximetry 99 100 Oxygen Delivery Method Room Air Room Air 08/17/22 18:30 08/17/22 18:31 08/17/22 18:31 Temperature Pulse Rate 80 76 Respiratory Rate 17 13 Blood Pressure 135/63 Pulse Oximetry 98 100 Oxygen Delivery Method Room Air Room Air 08/17/22 19:31 08/17/22 19:47 08/17/22 19:00 Temperature 97.9 F 97.9 F Pulse Rate 81 80 75 Respiratory Rate 15 20 13 Blood Pressure 161/69 H 157/70 H Pulse Oximetry 100 Oxygen Delivery Method Room Air 08/17/22 19:30 08/17/22 19:32 08/17/22 19:32 Temperature Pulse Rate 78 79 Respiratory Rate 14 16 Blood Pressure 161/69 H Pulse Oximetry 99 99 Oxygen Delivery Method Room Air Room Air 08/17/22 19:49 08/17/22 19:49 08/17/22 20:00 Temperature Pulse Rate 80 Respiratory Rate 15 Blood Pressure 157/70 H 154/67 H Pulse Oximetry Oxygen Delivery Method 08/17/22 20:00 08/17/22 20:15 08/17/22 20:15 Temperature Pulse Rate 79 84 Respiratory Rate 12 19 Blood Pressure 163/70 H Pulse Oximetry 100 100 Oxygen Delivery Method Room Air Room Air 08/17/22 20:53 08/17/22 21:08 08/17/22 20:30 Temperature 98.0 F 97.7 F Pulse Rate 81 80 Respiratory Rate 18 20 Blood Pressure 158/70 H 153/65 H 154/67 H Pulse Oximetry Oxygen Delivery Method 08/17/22 20:30 08/17/22 20:45 08/17/22 20:45 Temperature Pulse Rate 87 79 Respiratory Rate 17 11 L Blood Pressure 150/65 H Pulse Oximetry 99 99 Oxygen Delivery Method Room Air 08/17/22 20:54 08/17/22 21:00 08/17/22 21:00 Temperature Pulse Rate 80 80 Respiratory Rate 12 13 Blood Pressure 163/71 H Pulse Oximetry 100 99 Oxygen Delivery Method Room Air 08/17/22 22:16 08/17/22 22:22 08/17/22 22:37 Temperature 98.1 F 98.1 F 97.9 F Pulse Rate 83 83 89 Respiratory Rate 16 16 19 Blood Pressure 152/53 H 152/53 H 160/60 H Pulse Oximetry Oxygen Delivery Method
[2022-08-18] MEDS: PANTOPRAZOLE 40 MG VIAL IV ×3 (06:12→20:57)
--- NOTE | 2022-08-18 06:50 | PC.NURSE ---
PRBC running at 150/hr, will notify AM shift to call lab when complete. Patient has had no ASE to transfusion. LSCTA. VSS, afebrile.
[2022-08-18] MEDS: DEXTROSE 5%-0.9% NS 1,000 ML 100 ML IV (06:56)
--- NOTE | 2022-08-18 07:36 | PM.PN.1 ---
Subjective Subjective Date Patient Seen: 08/18/22 Interval history: His upper endoscopy today showed an area of bleeding at the gastroesophageal junction. He is being treated with IV Protonix. His blood pressures have been very high due to holding his blood pressure medications while being NPO. Those will be resumed now. The hemoglobin has risen from 5.0 up to 10.1 today. The creatinine is 2.1. The potassium has dropped again to 2.9. Per pharmacy he will be receiving 60 mEq of potassium chloride IV. A magnesium level is pending. Exam Vital Signs (past 8 hours): - 08/18/22 01:09 08/18/22 01:09 08/18/22 01:42 Temperature 98.5 F 98.5 F 97.9 F Pulse Rate 81 81 80 Respiratory Rate 18 18 18 Blood Pressure 152/59 H 152/59 H 154/59 H Pulse Oximetry 08/18/22 01:57 08/18/22 04:10 08/18/22 04:36 Temperature 98.4 F 98.4 F 98.0 F Pulse Rate 78 80 74 Respiratory Rate 16 18 17 Blood Pressure 153/61 H 150/63 H 169/63 H Pulse Oximetry 08/18/22 04:41 08/18/22 04:59 08/18/22 04:51 Temperature 98 F 98.0 F Pulse Rate 74 79 79 Respiratory Rate 17 18 18 Blood Pressure 169/69 H 169/68 H 164/70 H Pulse Oximetry 100 98 08/18/22 07:05 Temperature 98.1 F Pulse Rate 76 Respiratory Rate 18 Blood Pressure 165/71 H Pulse Oximetry Oxygen Delivery Method Room Air Narrative Exam Narrative: Alert, oriented x3, no apparent distress Heart is regular rate and rhythm without iron lungs are clear to auscultation bilaterally Abdomen is soft, bowel sounds positive, nontender and no organomegaly Extremities have no ankle edema Objective Labs Result Diagrams: 08/18/22 07:47 08/18/22 07:47 Labs: Laboratory Results - last 24 hr 08/17/22 08/17/22 08/17/22 17:35 17:35 17:35 WBC 15.8 H RBC 1.96 L Hgb 5.0 L* Hct 14.7 L* MCV 74.9 L MCH 25.6 L MCHC 34.1 RDW 15.8 H Plt Count 311 Neut % (Auto) 92.5 H Lymph % (Auto) 3.7 L [place] % (Auto) 3.6 Eos % (Auto) 0.0 L Baso % (Auto) 0.2 Neut # (Auto) 20974 H Lymph # (Auto) 600 L [place] # (Auto) 600 Eos # (Auto) 0 Baso # (Auto) 0 PT 15.0 H INR 1.3 APTT 24 L Sodium 134 L Potassium 3.1 L Chloride 99 Carbon Dioxide 24 BUN 94 H Creatinine 2.29 H Estimated GFR 29 L BUN/Creatinine Ratio 41.0 H Glucose 369 H Calcium 8.9 Total Bilirubin 0.5 AST 26 ALT 17 Alkaline Phosphatase 29 L Total Creatine Kinase CK-MB (CK-2) CK-MB (CK-2) Rel Index Troponin I Total Protein 5.3 L Albumin 3.0 L Globulin 2.3 Albumin/Globulin Ratio 1.3 Urine RBC Urine WBC Urine Bacteria Ur Culture Indicated? SARS-CoV-2 (PCR) Blood Type Antibody Screen Crossmatch 08/17/22 08/17/22 08/17/22 17:35 17:35 18:50 WBC RBC Hgb Hct MCV MCH MCHC RDW Plt Count Neut % (Auto) Lymph % (Auto) [place] % (Auto) Eos % (Auto) Baso % (Auto) Neut # (Auto) Lymph # (Auto) [place] # (Auto) Eos # (Auto) Baso # (Auto) PT INR APTT Sodium Potassium Chloride Carbon Dioxide BUN Creatinine Estimated GFR BUN/Creatinine Ratio Glucose Calcium Total Bilirubin AST ALT Alkaline Phosphatase Total Creatine Kinase 51 L CK-MB (CK-2) TNP CK-MB (CK-2) Rel Index TNP Troponin I 0.025 Total Protein Albumin Globulin Albumin/Globulin Ratio Urine RBC Urine WBC Urine Bacteria Ur Culture Indicated? SARS-CoV-2 (PCR) Negative Blood Type B Positive Antibody Screen Negative Crossmatch See Detail 08/17/22 19:00 WBC RBC Hgb Hct MCV MCH MCHC RDW Plt Count Neut % (Auto) Lymph % (Auto) [place] % (Auto) Eos % (Auto) Baso % (Auto) Neut # (Auto) Lymph # (Auto) [place] # (Auto) Eos # (Auto) Baso # (Auto) PT INR APTT Sodium Potassium Chloride Carbon Dioxide BUN Creatinine Estimated GFR BUN/Creatinine Ratio Glucose Calcium Total Bilirubin AST ALT Alkaline Phosphatase Total Creatine Kinase CK-MB (CK-2) CK-MB (CK-2) Rel Index Troponin I Total Protein Albumin Globulin Albumin/Globulin Ratio Urine RBC 0-1/hpf Urine WBC 0-1/hpf Urine Bacteria None seen Ur Culture Indicated? Cult not indicated SARS-CoV-2 (PCR) Blood Type Antibody Screen Crossmatch [facility] Medical History Barretts esophagus Chronic pain syndrome Diabetes type 2, uncontrolled Dysphagia Essential hypertension Gastric ulcer Hyperlipidemia PTSD (post-traumatic stress disorder) Rheumatoid arthritis Surgical History History of esophagogastroduodenoscopy (EGD) Family History Father Stroke Mother Stroke Other No pertinent family history Social History household members: none Smoking Status: Former smoker Assessment & Plan Assessment & Plan narrative: (1) ABLA (acute blood loss anemia): ?Status:?Acute (2) Acute GI bleeding: Bleeding seen at the gastroesophageal junction on EGD 08/18. ?Status:?Acute (3) Generalized weakness: Multifactorial, partially due to blood loss anemia ?Status:?Acute (4) Hypertensive urgency: Resumed blood pressure medicines on 08/18 post EGD. ?Status:?Acute (5) Headache: ?Qualifiers: ?Headache chronicity pattern:?acute headache??Headache type:?unspecified??Intractability:?not intractable? Qualified Code(s):?R51.9 - Headache, unspecified ?Status:?Acute Hypokalemia-potassium 2.9 on 08/18. -60 mEq IV KCL and repeat daily Assessment & Plan narrative: Continue close monitoring on telemetry High chance of deterioration given active GI bleed signs and significant orthostatic symptoms Blood transfusions-4 units, repeat labs in the morning. Watch for any signs of fluid overload given multiple transfusions Cardiac monitoring, pulse oximetry Resume blood pressure medicines now DVT and GI prophylaxis reviewed, SCDs, IV Protonix Patient is full code Care plan discussed with the patient and answered all questions Time Spent With Patient Critical Care time: I spent a total of [] minutes of critical care time on this patient's care today; this time is exclusive of procedural time. Quality VTE Deep Vein Thrombosis/Pulmonary Embolism Present on Admission: No
[2022-08-18 08:00] LABS: Add Manual Diff / Slide Review NO; Basophils Absolute Auto 100 /uL (0-100); Basophils Percent Auto 0.5 % (0-2); Eosinophils Absolute Auto 0 /uL (0-450); Hematocrit 29.2 % (41-53); Hemoglobin 10.1 g/dL (13.5-17.5); Lymphocytes Absolute Auto 900 /uL (1100-4500); Lymphocytes Percent Auto 7.8 % (25-40); Mean Corpuscular HGB Conc 34.6 % (30-36); Mean Corpuscular Hemoglobin 27.2 PG (26-34); Mean Corpuscular Volume 78.7 fL (80-100); Monocytes Absolute Auto 700 /uL (0-900); Monocytes Percent Auto 6.1 % (3-14); Neutrophils Absolute Auto 9400 /uL (1500-7000); Neutrophils Percent Auto 85.6 % (50-75); Platelet Count 232 X10^3/uL (150-400); Red Blood Cell Count 3.71 X10^6/uL (4.5-5.9); Red Cell Distribution Width 17.7 % (11.6-14.8)
[2022-08-18 08:08] LABS: Alanine Aminotransferase 15 IU/L (<50); Albumin 3.2 g/dL (3.5-5.0); Albumin Globulin Ratio 1.4 (1.0-2.8); Alkaline Phosphatase 30 U/L (38-126); Aspartate Aminotransferase 17 IU/L (17-59); BUN Creatinine Ratio 37.6 (6-22); Bilirubin Total 0.7 mg/dL (0.2-1.3); Blood Urea Nitrogen 79 mg/dL (9-20); Calcium 8.5 mg/dL (8.4-10.2); Carbon Dioxide 27 mmol/L (22-32); Chloride 102 mmol/L (98-107); Estimated Glomerular Filt Rate 33 mL/min (>60); Globulin 2.3 g/dL (1.7-4.1); Glucose 233 mg/dL (80-110); HEMOLYSIS < 15 (0-50); Potassium 2.9 mmol/L (3.4-5.1); Sodium 136 mmol/L (137-145); Total Protein 5.5 g/dL (6.3-8.2)
[2022-08-18] MEDS: LACTATED RINGERS 1,000 ML 150 ML IV ×2 (10:08→23:41)
--- NOTE | 2022-08-18 10:08 | PM.CN ---
History of Present Illness Consult details Date Patient Seen: 08/18/22 Time Patient Seen: 10:08 Chief complaint: Lethargic, Bed ridden Reason for consult: upper GI bleed Requesting provider: Emani Casanova Narrative: Extreme fatigue and dark stools brought him to ED. Profound anemia, not on anticoagulants, hypertension, h/o peptic ulcers and diabetes. 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 Meds Home Medications and Allergies Home Medications Medication Instructions Recorded Confirmed Type atorvastatin 40 mg tablet (Lipitor) 40 mg PO QAM ##0 07/05/17 08/18/22 History fenofibrate 160 mg tablet 160 mg PO DAILY ##0 07/05/17 08/18/22 History nifedipine 60 mg tablet,extended 60 mg PO BID ##0 07/05/17 08/18/22 History release 24 hr docusate calcium 240 mg capsule 240 mg PO TID 01/20/19 08/18/22 History fluticasone propionate 50 1 spray intranasal DIRECTED 01/20/19 08/18/22 History mcg/actuation nasal spray,suspension lisinopril 40 mg tablet 40 mg PO DAILY 01/20/19 08/18/22 History oxycodone-acetaminophen 10 mg-325 1 tab PO Q8H PRN pain 01/20/19 08/18/22 History mg tablet oxycodone 10 mg tablet,crush 10 mg PO BID 09/02/19 08/18/22 History resistant,extended release 12 hr (OxyContin) chlorthalidone 25 mg tablet 25 mg PO DAILY #30 tabs 03/07/21 08/18/22 Rx labetalol 100 mg tablet 100 mg PO BID #60 tabs 03/07/21 08/18/22 Rx Allergies Allergy/AdvReac Type Severity Reaction Status Date / Time No Known Allergies Allergy Verified 06/27/21 11:00 Review of Systems Review of Systems ROS: Yes All systems reviewed with the patient and are negative except as otherwise documented Exam Vital Signs (past 8 hours): - 08/18/22 04:10 08/18/22 04:36 08/18/22 04:41 Temperature 98.4 F 98.0 F 98 F Pulse Rate 80 74 74 Respiratory Rate 18 17 17 Blood Pressure 150/63 H 169/63 H 169/69 H Pulse Oximetry 100 Oxygen Delivery Method Oxygen Flow Rate 08/18/22 04:59 08/18/22 04:51 08/18/22 07:05 Temperature 98.0 F 98.1 F Pulse Rate 79 79 76 Respiratory Rate 18 18 18 Blood Pressure 169/68 H 164/70 H 165/71 H Pulse Oximetry 98 Oxygen Delivery Method Oxygen Flow Rate 08/18/22 08:03 08/18/22 10:06 Temperature 98 F 98.2 F Pulse Rate 78 100 H Respiratory Rate 16 20 Blood Pressure 188/74 H 193/77 H Pulse Oximetry 99 98 Oxygen Delivery Method Room Air Oxygen Flow Rate 0 Oxygen Delivery Method Room Air Oxygen Flow Rate 0 Const General: cooperative, disheveled and frail appearing Nutritional Appearance: average body habitus [facility] Head: normocephalic and atraumatic Eyes General: appearance normal, both eyes and all related structures Sclera: sclerae normal Neck Neck: trachea midline Chest Chest: normal inspection of the chest Resp Effort & Inspection: normal respiratory effort and able to speak in complete sentences Cardio Rate: regular rate Rhythm: regular rhythm GI Inspection: normal to inspection Palpation: soft Skin General: atrophy, ecchymosis and lichenification Hair: brittle and general thinning Neuro General: patient alert, patient awake and patient oriented x3 Speech: speech normal Extrem General: full ROM Psych Appearance: grossly normal Mental Status: mental status grossly normal Affect: normal affect Attitude: cooperative Judgment: judgment good Objective Labs Result Diagrams: 08/18/22 07:47 08/18/22 07:47 Labs: Laboratory Results - last 24 hr 08/17/22 08/17/22 08/17/22 17:35 17:35 17:35 WBC 15.8 H RBC 1.96 L Hgb 5.0 L* Hct 14.7 L* MCV 74.9 L MCH 25.6 L MCHC 34.1 RDW 15.8 H Plt Count 311 Neut % (Auto) 92.5 H Lymph % (Auto) 3.7 L [place] % (Auto) 3.6 Eos % (Auto) 0.0 L Baso % (Auto) 0.2 Neut # (Auto) 80451 H Lymph # (Auto) 600 L [place] # (Auto) 600 Eos # (Auto) 0 Baso # (Auto) 0 PT 15.0 H INR 1.3 APTT 24 L Sodium 134 L Potassium 3.1 L Chloride 99 Carbon Dioxide 24 BUN 94 H Creatinine 2.29 H Estimated GFR 29 L BUN/Creatinine Ratio 41.0 H Glucose 369 H Calcium 8.9 Total Bilirubin 0.5 AST 26 ALT 17 Alkaline Phosphatase 29 L Total Creatine Kinase CK-MB (CK-2) CK-MB (CK-2) Rel Index Troponin I Total Protein 5.3 L Albumin 3.0 L Globulin 2.3 Albumin/Globulin Ratio 1.3 Urine RBC Urine WBC Urine Bacteria Ur Culture Indicated? SARS-CoV-2 (PCR) Blood Type Antibody Screen Crossmatch 08/17/22 08/17/22 08/17/22 17:35 17:35 18:50 WBC RBC Hgb Hct MCV MCH MCHC RDW Plt Count Neut % (Auto) Lymph % (Auto) [place] % (Auto) Eos % (Auto) Baso % (Auto) Neut # (Auto) Lymph # (Auto) [place] # (Auto) Eos # (Auto) Baso # (Auto) PT INR APTT Sodium Potassium Chloride Carbon Dioxide BUN Creatinine Estimated GFR BUN/Creatinine Ratio Glucose Calcium Total Bilirubin AST ALT Alkaline Phosphatase Total Creatine Kinase 51 L CK-MB (CK-2) TNP CK-MB (CK-2) Rel Index TNP Troponin I 0.025 Total Protein Albumin Globulin Albumin/Globulin Ratio Urine RBC Urine WBC Urine Bacteria Ur Culture Indicated? SARS-CoV-2 (PCR) Negative Blood Type B Positive Antibody Screen Negative Crossmatch See Detail 08/17/22 08/18/22 08/18/22 19:00 07:47 07:47 WBC 11.0 RBC 3.71 L Hgb 10.1 L Hct 29.2 L MCV 78.7 L D MCH 27.2 MCHC 34.6 RDW 17.7 H Plt Count 232 Neut % (Auto) 85.6 H Lymph % (Auto) 7.8 L [place] % (Auto) 6.1 Eos % (Auto) 0.0 L Baso % (Auto) 0.5 Neut # (Auto) 9400 H Lymph # (Auto) 900 L [place] # (Auto) 700 Eos # (Auto) 0 Baso # (Auto) 100 PT INR APTT Sodium 136 L Potassium 2.9 L Chloride 102 Carbon Dioxide 27 BUN 79 H Creatinine 2.10 H Estimated GFR 33 L BUN/Creatinine Ratio 37.6 H Glucose 233 H D Calcium 8.5 Total Bilirubin 0.7 AST 17 ALT 15 Alkaline Phosphatase 30 L Total Creatine Kinase CK-MB (CK-2) CK-MB (CK-2) Rel Index Troponin I Total Protein 5.5 L Albumin 3.2 L Globulin 2.3 Albumin/Globulin Ratio 1.4 Urine RBC 0-1/hpf Urine WBC 0-1/hpf Urine Bacteria None seen Ur Culture Indicated? Cult not indicated SARS-CoV-2 (PCR) Blood Type Antibody Screen Crossmatch [facility] Medical History Barretts esophagus Chronic pain syndrome Diabetes type 2, uncontrolled Dysphagia Essential hypertension Gastric ulcer Hyperlipidemia PTSD (post-traumatic stress disorder) Rheumatoid arthritis Surgical History History of esophagogastroduodenoscopy (EGD) Family History Father Stroke Mother Stroke Other No pertinent family history Social History household members: none Tobacco & Substance Use Smoking Status: Former smoker Assessment & Plan Assessment & Plan narrative: upper GI bleed producing anemia Plan: Already transfused and on PPI, diagnostic EGD with bx for H pylori. COVID-19 COVID-19 status: Negative Time Spent With Patient Time with patient: less than 30 minutes Critical Care time: I spent a total of [] minutes of critical care time on this patient's care today; this time is exclusive of procedural time.
--- NOTE | 2022-08-18 10:13 | SUR.HOLD ---
Patient to holding area via wheelchair in stable condition for EGD with anesthesia; GCS 15; denies pain, nausea or SOB; vss; abdomen soft and non-distended. Dr Lorenz at bedside consenting patient for procedure. Awaiting anesthesia to evaluate.
--- NOTE | 2022-08-18 10:48 | PM.OP.EGD ---
Operative Date/Time/Diagnoses Date of procedure: 08/18/22 Time of procedure: 10:48 Pre-op diagnosis: Upper GI bleed Post-op diagnosis: same Procedure & Clinicians Study performed: EGD with cold forceps biopsy Same procedure as scheduled: Yes Indications: Upper GI bleed with anemia Surgeon: Heather Lorenz Procedure Notes Procedure in detail: Prep diagnosis: Upper GI bleed with anemia Postop diagnosis: Same Operative procedure: EGD with cold forceps biopsy Surgeon: Zeinab Lorenz MD Anesthetic: Mac Findings: Ulceration seems to be at the GE junction with a mild benign stricture. Mild duodenitis. Cold forceps biopsies taken for H pylori Procedure: Patient placed in a supine position. Anesthetic was provided. Scope inserted into the esophagus and advanced into the stomach with insufflation of identified the pylorus and intubated into the duodenum. First and 2nd portion of the duodenum are within normal limits with a mild duodenitis in the 1st portion. Stomach was within normal limits as well. Retroflexion showed bleeding and a small erosion at the GE junction no masses. No hiatal hernia. Withdrawal into the esophagus gave me a look at the distal esophagus which was bleeding from passing of the scope, again no masses identified. In a mild benign stricture. No Mathias's noted. Scope withdrawn without complication. Impression: Erosion versus ulcer at GE junction, mild duodenitis. No hiatal hernia. No Mathias's esophagus. Plan: Ppi b.i.d. for 6-8 weeks. Repeat EGD in 1 year unless indicated by change in clinical condition Findings: other findings (Mild duodenitis, erosion and bleeding at the distal esophagus/GE junction. No Mathias's identified no hiatal hernia.) Specimen(s): other Post-procedure Recommendations: EGD in 1 year Follow up: as needed Disposition: PACU
--- NOTE | 2022-08-18 11:03 | SUR.PHASEI ---
Patient to recovery room s/p EGD with anesthesia and nursing staff in stable condition; vss; resting with eyes closed in no acute distress. Arousable to verbal. Lungs clear in all [place] on assessment. Abdomen soft and non-distended.
--- NOTE | 2022-08-18 11:08 | SUR.PHASEI ---
Awake and drinking water without difficulty.
[2022-08-18] MEDS: ATORVASTATIN 20 MG TABLET 40 MG PO (11:49)
[2022-08-18] MEDS: NIFEdipine 30 MG TAB ER 60 MG PO ×2 (11:49→20:56)
[2022-08-18] MEDS: lisinopriL 20 MG TABLET 40 MG PO (11:50)
[2022-08-18] MEDS: LABETALOL 100 MG TABLET PO ×2 (11:50→20:56)
[2022-08-18] MEDS: POTASSIUM CHLORIDE IN WATER 10 MEQ/100 ML PIGGYBACK 100 MEQ IV ×6 (11:51→18:42)
--- NOTE | 2022-08-18 13:20 | CM.DANOTE ---
Initial DCP Assessment Note Pt is a 72 yo male, resident of [place], arrives w/weakness, EGD this morning shows acute GI bleed. Patient being treated for acute blood loss anemia w/blood transfusion and close monitoring on tele PCP: Kristopher Espinoza Payer: [facility]/[employer] Met w/patient to introduce self and role. Patient states he is eager to return home upon discharge and that his dtr Marysol, who lives down the street, will transport him home and can stay to assist as needed. 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 JEAN CLAUDE Bennett Discharge Planning/Care Management CM Discharge Assessment Start: 08/18/22 13:17 Freq: Status: Active Protocol: Document 08/18/22 13:18 BORIS (Rec: 08/18/22 13:20 BORIS [id number]) Discharge Planning Assessment Assigned Roll Filler JEAN CLAUDE Gomes DPOA/Assigned Designee Name Marysol Goldstein dtr Contact Information [phone] Advance Directives? Yes Advance Directives on File Yes History Provided By Patient Prior Living Arrangements House Household Members none Type of transporation used prior to Drives own vehicle admit Independent with ADL's Yes Is patient alert and oriented? Yes Barriers to Discharge No Comment Home w/dtr to assist Discharge Plan Home Transportation Arrangement Daughter Referrals Initiated None needed
[2022-08-18] MEDS: INSULIN LISPRO 100 UNIT/ML 3ML VIAL SUBCUT ×2 (17:01→23:40)
[2022-08-18 19:18] LABS: HEMOLYSIS < 15 (0-50); Potassium 3.4 mmol/L (3.4-5.1)
[2022-08-18] MEDS: ACETAMINOPHEN 325 MG TABLET 650 MG PO (20:56)
[2022-08-19] VITALS (10 sets, daily range): BP systolic 125–162; BP diastolic 59–74; PULSE 70–88; RESP 16–21; TEMP 35.9–36.4; O2SAT 96–99
[2022-08-19 05:47] LABS: Add Manual Diff / Slide Review NO; Basophils Absolute Auto 0 /uL (0-100); Basophils Percent Auto 0.3 % (0-2); Eosinophils Absolute Auto 0 /uL (0-450); Eosinophils Percent Auto 0.6 % (2-4); Hematocrit 26.3 % (41-53); Hemoglobin 9.1 g/dL (13.5-17.5); Lymphocytes Absolute Auto 700 /uL (1100-4500); Lymphocytes Percent Auto 8.9 % (25-40); Mean Corpuscular HGB Conc 34.8 % (30-36); Mean Corpuscular Hemoglobin 27.3 PG (26-34); Mean Corpuscular Volume 78.6 fL (80-100); Monocytes Absolute Auto 600 /uL (0-900); Monocytes Percent Auto 7.2 % (3-14); Neutrophils Absolute Auto 6400 /uL (1500-7000); Platelet Count 218 X10^3/uL (150-400); Red Blood Cell Count 3.34 X10^6/uL (4.5-5.9); White Blood Cell Count 7.7 X10^3/uL (4.5-11.0)
[2022-08-19 05:57] LABS: BUN Creatinine Ratio 28.4 (6-22); Blood Urea Nitrogen 52 mg/dL (9-20); Calcium 7.7 mg/dL (8.4-10.2); Carbon Dioxide 27 mmol/L (22-32); Chloride 101 mmol/L (98-107); Estimated Glomerular Filt Rate 38 mL/min (>60); Glucose 220 mg/dL (80-110); HEMOLYSIS < 15 (0-50); Potassium 3.1 mmol/L (3.4-5.1); Sodium 133 mmol/L (137-145)
[2022-08-19] MEDS: LACTATED RINGERS 1,000 ML 150 ML IV (06:50)
[2022-08-19] MEDS: POTASSIUM CHLORIDE IN WATER 10 MEQ/100 ML PIGGYBACK 100 MEQ IV (06:51)
[2022-08-19] MEDS: POTASSIUM CHLORIDE 20 MEQ TAB 40 MEQ PO (06:52)
--- NOTE | 2022-08-19 07:36 | PM.PN.1 ---
Subjective Subjective Date Patient Seen: 08/19/22 Time Patient Seen: 09:33 Interval history: He says that he is feeling much better, his diarrhea has resolved and he would like to go home. He does not recall the details of his EGD from yesterday and so that was explained to him again. His hemoglobin has dropped from 10.1 down to 9.1. The potassium has dropped from 3.4 down to 3.1. He has been started on potassium chloride 20 mEq twice daily. His creatinine has improved from 2.1 down to 1.83. When all this was explained to him he was agreeable to staying 1 more day to make sure that the trend of his hemoglobin does not continue dropping. Exam Vital Signs (past 8 hours): - 08/18/22 23:46 08/19/22 02:56 08/19/22 06:26 Temperature 97.1 F L 97.2 F L Pulse Rate 71 75 85 Respiratory Rate 21 20 Blood Pressure 153/59 H 125/65 161/60 H Pulse Oximetry 98 98 Oxygen Flow Rate 0 0 Oxygen Delivery Method Room Air Oxygen Flow Rate 0 Narrative Exam Narrative: Alert and oriented x3. No apparent distress Heart is regular rate and rhythm without murmur Lungs are clear to auscultation bilaterally Extremities have no ankle edema Abdomen soft, nontender, no organomegaly, bowel sounds active. Objective Labs Result Diagrams: 08/19/22 05:08 08/19/22 05:08 Labs: Laboratory Results - last 24 hr 08/18/22 08/18/22 08/18/22 07:47 07:47 19:04 WBC 11.0 RBC 3.71 L Hgb 10.1 L Hct 29.2 L MCV 78.7 L D MCH 27.2 MCHC 34.6 RDW 17.7 H Plt Count 232 Neut % (Auto) 85.6 H Lymph % (Auto) 7.8 L [place] % (Auto) 6.1 Eos % (Auto) 0.0 L Baso % (Auto) 0.5 Neut # (Auto) 9400 H Lymph # (Auto) 900 L [place] # (Auto) 700 Eos # (Auto) 0 Baso # (Auto) 100 Sodium 136 L Potassium 2.9 L 3.4 Chloride 102 Carbon Dioxide 27 BUN 79 H Creatinine 2.10 H Estimated GFR 33 L BUN/Creatinine Ratio 37.6 H Glucose 233 H D Calcium 8.5 Magnesium Total Bilirubin 0.7 AST 17 ALT 15 Alkaline Phosphatase 30 L Total Protein 5.5 L Albumin 3.2 L Globulin 2.3 Albumin/Globulin Ratio 1.4 08/18/22 08/19/22 08/19/22 19:04 05:08 05:08 WBC 7.7 RBC 3.34 L Hgb 9.1 L Hct 26.3 L MCV 78.6 L MCH 27.3 MCHC 34.8 RDW 18.0 H Plt Count 218 Neut % (Auto) 83.0 H Lymph % (Auto) 8.9 L [place] % (Auto) 7.2 Eos % (Auto) 0.6 L Baso % (Auto) 0.3 Neut # (Auto) 6400 Lymph # (Auto) 700 L [place] # (Auto) 600 Eos # (Auto) 0 Baso # (Auto) 0 Sodium 133 L Potassium 3.1 L Chloride 101 Carbon Dioxide 27 BUN 52 H Creatinine 1.83 H Estimated GFR 38 L BUN/Creatinine Ratio 28.4 H Glucose 220 H Calcium 7.7 L Magnesium 2.0 Total Bilirubin AST ALT Alkaline Phosphatase Total Protein Albumin Globulin Albumin/Globulin Ratio [facility] Medical History Barretts esophagus Chronic pain syndrome Diabetes type 2, uncontrolled Dysphagia Essential hypertension Gastric ulcer Hyperlipidemia PTSD (post-traumatic stress disorder) Rheumatoid arthritis Surgical History History of esophagogastroduodenoscopy (EGD) Family History Father Stroke Mother Stroke Other No pertinent family history Social History household members: none Smoking Status: Former smoker Assessment & Plan Assessment & Plan narrative: (1) ABLA (acute blood loss anemia): ?Status:?Acute She hemoglobin dropped from 10.1 down to 9.1 08/19. Continue to follow. Anticipate discharge home on 08/20. (2) Acute GI bleeding: Bleeding seen at the gastroesophageal junction on EGD 08/18. ?Status:?Acute -no signs of ongoing bleeding other than the drop in hemoglobin to 9.1 on 08/19 -H pylori pending. Surgery: Ppi b.i.d. for 6-8 weeks.? Repeat EGD in 1 year unless indicated by change in clinical condition (3) Generalized weakness:? Multifactorial, partially due to blood loss anemia ?Status:?Acute -resolved (4) Hypertensive urgency:? Resumed blood pressure medicines on 08/18 post EGD. ?Status:?Acute -blood pressure 160/61, continuing elevated on 08/19. (5) Headache: Hypokalemia-potassium 2.9 on 08/18.? -60 mEq IV KCL and repeat daily -3.1 on 08/19, begin oral potassium and recheck on 08/20. In Assessment & Plan narrative: Continue close monitoring on telemetry High chance of deterioration given active GI bleed signs and significant orthostatic symptoms Blood transfusions-4 units on day of admission, repeat labs in the morning. Watch for any signs of fluid overload given multiple transfusions Cardiac monitoring, pulse oximetry Resumed blood pressure medicines on 08/18 DVT and GI prophylaxis reviewed, SCDs, IV Protonix Patient is full code Care plan discussed with the patient and answered all questions Plan discharge home on 08/20 assuming the hemoglobin does not continue to drop. Time Spent With Patient Critical Care time: I spent a total of [] minutes of critical care time on this patient's care today; this time is exclusive of procedural time. Quality VTE Deep Vein Thrombosis/Pulmonary Embolism Present on Admission: No
[2022-08-19] MEDS: NIFEdipine 30 MG TAB ER 60 MG PO ×2 (09:24→19:58)
[2022-08-19] MEDS: PANTOPRAZOLE 40 MG VIAL IV ×2 (09:24→19:59)
[2022-08-19] MEDS: LABETALOL 100 MG TABLET PO ×2 (09:25→19:58)
[2022-08-19] MEDS: lisinopriL 20 MG TABLET 40 MG PO (09:25)
[2022-08-19] MEDS: POTASSIUM CHLORIDE 20 MEQ TAB PO ×2 (09:25→17:02)
[2022-08-19] MEDS: ATORVASTATIN 20 MG TABLET 40 MG PO (09:25)
[2022-08-19] MEDS: CHLORTHALIDONE 25 MG TABLET PO (09:25)
[2022-08-19] MEDS: INSULIN LISPRO 100 UNIT/ML 3ML VIAL SUBCUT ×3 (09:30→17:02)
[2022-08-19] MEDS: POTASSIUM CHLORIDE IN WATER 10 MEQ/100 ML PIGGYBACK 30 MEQ IV (10:47)
[2022-08-19] MEDS: ACETAMINOPHEN 325 MG TABLET 650 MG PO (19:58)
[2022-08-19] MEDS: SODIUM CHLORIDE 0.9% FLUSH 10 ML IV (19:59)
[2022-08-19] MEDS: HYDROCODONE/ACET 10/325 TABLET 1 TAB PO (21:07)
[2022-08-20 04:00] VITALS: BP 149/70; PULSE 88; RESP 17; TEMP 36.1; O2SAT 98
[2022-08-20 05:30] LABS: Add Manual Diff / Slide Review NO; Basophils Absolute Auto 0 /uL (0-100); Basophils Percent Auto 0.3 % (0-2); Eosinophils Absolute Auto 100 /uL (0-450); Eosinophils Percent Auto 1.2 % (2-4); Hematocrit 30.1 % (41-53); Hemoglobin 10.5 g/dL (13.5-17.5); Lymphocytes Absolute Auto 800 /uL (1100-4500); Lymphocytes Percent Auto 9.8 % (25-40); Mean Corpuscular HGB Conc 34.9 % (30-36); Mean Corpuscular Hemoglobin 27.4 PG (26-34); Mean Corpuscular Volume 78.5 fL (80-100); Monocytes Absolute Auto 600 /uL (0-900); Monocytes Percent Auto 7.6 % (3-14); Neutrophils Absolute Auto 6400 /uL (1500-7000); Neutrophils Percent Auto 81.1 % (50-75); Platelet Count 281 X10^3/uL (150-400); Red Blood Cell Count 3.84 X10^6/uL (4.5-5.9); Red Cell Distribution Width 18.3 % (11.6-14.8); White Blood Cell Count 7.9 X10^3/uL (4.5-11.0)
[2022-08-20 05:43] LABS: BUN Creatinine Ratio 22.6 (6-22); Blood Urea Nitrogen 40 mg/dL (9-20); Calcium 8.1 mg/dL (8.4-10.2); Carbon Dioxide 24 mmol/L (22-32); Chloride 102 mmol/L (98-107); Estimated Glomerular Filt Rate 40 mL/min (>60); Glucose 182 mg/dL (80-110); HEMOLYSIS < 15 (0-50); Potassium 3.6 mmol/L (3.4-5.1); Sodium 134 mmol/L (137-145)
[2022-08-20 08:49] VITALS: BP 149/70; PULSE 88
[2022-08-20] MEDS: POTASSIUM CHLORIDE 20 MEQ TAB PO (08:49)
[2022-08-20] MEDS: PANTOPRAZOLE 40 MG VIAL IV (08:49)
[2022-08-20] MEDS: LABETALOL 100 MG TABLET PO (08:49)
[2022-08-20] MEDS: CHLORTHALIDONE 25 MG TABLET PO (08:49)
[2022-08-20 08:50] VITALS: BP 149/70; PULSE 88
[2022-08-20] MEDS: ATORVASTATIN 20 MG TABLET 40 MG PO (08:50)
[2022-08-20] MEDS: lisinopriL 20 MG TABLET 40 MG PO (08:50)
[2022-08-20] MEDS: NIFEdipine 30 MG TAB ER 60 MG PO (08:50)
[2022-08-20] MEDS: SODIUM CHLORIDE 0.9% FLUSH 10 ML IV (08:51)
[2022-08-20] MEDS: INSULIN LISPRO 100 UNIT/ML 3ML VIAL SUBCUT (08:54)
--- NOTE | 2022-08-20 18:03 | P.DS_ITS ---
History of Present Illness History of Present Illness Date Patient Seen: 08/17/22 Date of Onset of Symptoms: 08/16/22 Chief complaint: Lethargic, Bed ridden Narrative: Per admitting provider: 72-year-old gentleman with a history of hypertension, hyperlipidemia, history of esophageal dysphagia and reflux esophagitis with EGD June 2020 showing no evidence of esophagitis, no varices mild hypertonicity at the GE junction.?He has a history of a gastric ulcer and the distant past and continues on pantoprazole 40 mg daily. No Smoking and alcohol intake. Patient not feeling well past 2 days and today he started having significant darker stools and, feeling dizzy, headaches. Today he found that he was so weak he had difficulty getting out of bed due to global weakness.? He describes no vomiting, no pain, palpitations, dyspnea, orthopnea, lower extremity edema, headaches, acute neurologic findings.? He describes no fevers, cough or other infectious disease symptoms.? He has never had upper GI bleeding issues previously. His daughter brought him to ER for further evaluation. In the ER he found to be significantly anemic with hemoglobin of 5, active signs of GI bleed with dark colored stools, hospitalist team called for further admission. Discharge Providers Provider Date of admission: 08/17/22 19:23 Discharge Date: 08/20/22 Primary care physician: Kristopher Espinoza MD Discharge provider: Willie Escobar MD Summary Hospital Course Discharge Diagnosis: 1. Acute GI bleed from GE junction ulcer causing anemia 2. SABRINA on CKD stage 3 3. Hypertension 4. Weakness Hospital Course: Mr. Goldstein came in to the hospital with GI bleeding. He did require 4U PRBC transfusion. He was started on protonix. EGD was done and showed bleeding ulcer at GE junction. Biopsies for H. Pylori were pending on discharge. He was discharged with protonix. he should follow up with his PCP within one week. He should continue on PPI for 6-8 weeks and repeat an EGD in one year. He did have mild SABRINA from hypovolemia which improved with transfusion. Exam Vital Signs (past 8 hours): Oxygen Delivery Method Room Air Oxygen Flow Rate 0 Narrative Exam Narrative: GEN: no acute distress CV: regular rate and rhythm without murmur PULM: clear to auscultation bilaterally ABD: soft, nontender Objective Labs Result Diagrams: 08/20/22 05:00 08/20/22 05:00 Labs: Laboratory Results - last 24 hr 08/20/22 08/20/22 05:00 05:00 WBC 7.9 RBC 3.84 L Hgb 10.5 L Hct 30.1 L MCV 78.5 L MCH 27.4 MCHC 34.9 RDW 18.3 H Plt Count 281 Neut % (Auto) 81.1 H Lymph % (Auto) 9.8 L [place] % (Auto) 7.6 Eos % (Auto) 1.2 L Baso % (Auto) 0.3 Neut # (Auto) 6400 Lymph # (Auto) 800 L [place] # (Auto) 600 Eos # (Auto) 100 Baso # (Auto) 0 Sodium 134 L Potassium 3.6 Chloride 102 Carbon Dioxide 24 BUN 40 H Creatinine 1.77 H Estimated GFR 40 L BUN/Creatinine Ratio 22.6 H Glucose 182 H Calcium 8.1 L PFSH Medical History Barretts esophagus Chronic pain syndrome Diabetes type 2, uncontrolled Dysphagia Essential hypertension Gastric ulcer Hyperlipidemia PTSD (post-traumatic stress disorder) Rheumatoid arthritis Surgical History History of esophagogastroduodenoscopy (EGD) Family History Father Stroke Mother Stroke Other No pertinent family history Social History household members: none Smoking Status: Former smoker Discharge Plan Discharge Plan Patient Disposition: Home Provider Discharge Comment: Mr. Goldstein came in to the hospital with bleeding. He was found to have an ulcer. He was started on protonix, which reduces acid level in the stomach and helps heal ulcers. He should continue this and follow up with his PCP as soon as possible. He should repeat his EGD in a year. Discharge orders & Medications Prescriptions: New pantoprazole [Protonix] 40 mg tablet,delayed release (DR/EC) 40 mg PO BID Qty: 60 0RF Continued nifedipine 60 MG tablet extended release 24hr 60 mg PO BID Qty: 0 atorvastatin [Lipitor] 40 MG tablet 40 mg PO QAM Qty: 0 fenofibrate 160 MG tablet 160 mg PO DAILY Qty: 0 oxycodone [OxyContin] 10 mg Tablet,Oral Only,Ext.Rel.12 Hr 10 mg PO BID docusate calcium 240 mg capsule 240 mg PO TID oxycodone-acetaminophen 10-325 mg tablet 1 tab PO Q8H PRN (Reason: pain) lisinopril 40 mg tablet 40 mg PO DAILY fluticasone propionate 50 mcg/actuation spray,suspension 1 spray Intranasal DIRECTED chlorthalidone 25 mg Tablet 25 mg PO DAILY Qty: 30 0RF labetalol 100 mg Tablet 100 mg PO BID Qty: 60 0RF Follow up/Referrals: Kristopher Espinoza MD [Primary Care Provider] - Diet/Activity/Treatments Diet: Regular Visit Report/Discharge Packet Instructions: DI for Gastric Ulcer Discharge Data Primary Care Provider: Kristopher Espinoza Quality VTE Deep Vein Thrombosis/Pulmonary Embolism Present on Admission: No
== END 2022-08-20 10:00 | disposition home or self-care (01) | DRG 381 ==
LOC: ED 18:03 → AC 19:24
PROVIDERS: Emergency Medicine; Family Medicine; Surgery; Admitting Provider Family Medicine; Emergency Provider Emergency Medicine; Family Provider Internal Medicine; PCP Internal Medicine; Referring Provider Emergency Medicine; Visit Provider Family Medicine
PROC: 0DJ08ZZ Inspection of Upper Intestinal Tract, Via Natural or Artificial Opening Endoscopic (ICD-10-PCS; CPT 43235; principal; 2022-08-18 10:45)
DX: K22.11 Ulcer of esophagus with bleeding (principal); D62 Acute posthemorrhagic anemia; N17.9 Acute kidney failure, unspecified; K29.80 Duodenitis without bleeding; E87.6 Hypokalemia; I12.9 Hypertensive chronic kidney disease with stage 1 through stage 4 chronic kidney disease, or unspecified chronic kidney disease; N18.30 Chronic kidney disease, stage 3 unspecified; I16.0 Hypertensive urgency; E78.5 Hyperlipidemia, unspecified; E11.22 Type 2 diabetes mellitus with diabetic chronic kidney disease; Z87.891 Personal history of nicotine dependence; Z20.822 Contact with and (suspected) exposure to COVID-19
CPT/HCPCS: 36415; 36430; 36592; 80048; 80053; 81003; 81015; 82550; 82962; 83735; 84132; 84484; 85025; 85610; 85730; 86850; 86900; 86901; 86927; 87635; 93005; 96365; 96375; 99285; 99291; C9803; P9016; C9113; J0330; J1815; J2250

== ENCOUNTER 2023-01-17 10:44 | Inpatient (IN) | payer MEDICARE, OTHER, SELFPAY ==
[2022-08-17 20:53] VITALS: BMI 65.4
[2023-01-17] VITALS (22 sets, daily range): BP systolic 162–221; BP diastolic 76–145; PULSE 94–122; RESP 16–36; TEMP 35.8–36.3; O2SAT 92–100; BMI 35.4
--- NOTE | 2023-01-17 10:53 | DI.RAD.S_ITS ---
PROCEDURE: XR CHEST 1V INDICATIONS: short of breath TECHNIQUE: One view of the chest was acquired. COMPARISON: [facility], CR, XR CHEST 1V, 04/08/2022, 12:12. FINDINGS: Surgical changes and devices: None. Lungs and pleura: Mild patchy bilateral perihilar and bibasilar opacity. No pleural effusions or pneumothorax. Mediastinum: Mediastinal contours appear normal. Heart size is normal. Bones and chest wall: No suspicious bony lesions. Overlying soft tissues appear unremarkable. IMPRESSION: Multifocal pneumonia. Continued plain film surveillance is recommended to ensure resolution, and to exclude underlying or central malignancy. Dictated by: Melba Nielsen M.D. on 01/17/2023 at 11:15 Approved by: Melba Nielsen M.D. on 01/17/2023 at 11:16
[2023-01-17] MEDS: ALBUTEROL 2.5 MG/3 ML NEB (ADULT) INH (11:16)
[2023-01-17 11:31] LABS: Add Manual Diff / Slide Review NO; Basophils Absolute Auto 0 /uL (0-100); Basophils Percent Auto 0.4 % (0-2); Eosinophils Absolute Auto 100 /uL (0-450); Eosinophils Percent Auto 0.9 % (2-4); Hematocrit 29.2 % (41-53); Hemoglobin 9.1 g/dL (13.5-17.5); Lymphocytes Absolute Auto 300 /uL (1100-4500); Lymphocytes Percent Auto 2.5 % (25-40); Mean Corpuscular HGB Conc 31.1 % (30-36); Mean Corpuscular Hemoglobin 19.4 PG (26-34); Mean Corpuscular Volume 62.3 fL (80-100); Monocytes Absolute Auto 400 /uL (0-900); Monocytes Percent Auto 3.1 % (3-14); Neutrophils Absolute Auto 10900 /uL (1500-7000); Neutrophils Percent Auto 93.1 % (50-75); Platelet Count 303 X10^3/uL (150-400); Red Blood Cell Count 4.69 X10^6/uL (4.5-5.9); Red Cell Distribution Width 20.8 % (11.6-14.8); White Blood Cell Count 11.7 X10^3/uL (4.5-11.0)
--- NOTE | 2023-01-17 11:31 | ED.SOB ---
HPI - SOB/Dyspnea General Chief Complaint: Shortness of Breath/Dyspnea Stated Complaint: COPD Time Seen by Provider: 01/17/23 10:53 Source: patient and EMS Mode of arrival: EMS Limitations: no limitations History of Present Illness HPI Narrative: Alert 72-year-old male history of COPD hyperlipidemia hypertension presenting today with shortness of breath. He says he has noted some increased lower extremity edema over last 1 week but got significantly short of breath this morning. EMS was called they noted that he would an O2 sat in the 60s. He was quickly put on oxygen given a DuoNeb treatment and then put on CPAP. He apparently improved significantly no longer on CPAP 92% on room air. He denies any cough or abdominal pain. No nausea or vomiting. He is no chest pain. No significant productive cough or fever. Says that whatever EMS did certainly helped him. He is still having some work of breathing. Related Data Home Medications Medication Instructions Recorded Confirmed atorvastatin 40 mg tablet (Lipitor) 40 mg PO QAM ##0 07/05/17 01/17/23 fenofibrate 160 mg tablet 160 mg PO DAILY ##0 07/05/17 01/17/23 nifedipine 60 mg tablet,extended 60 mg PO BID ##0 07/05/17 01/17/23 release 24 hr docusate calcium 240 mg capsule 240 mg PO TID 01/20/19 01/17/23 fluticasone propionate 50 1 spray intranasal DIRECTED 01/20/19 01/17/23 mcg/actuation nasal spray,suspension lisinopril 40 mg tablet 40 mg PO DAILY 01/20/19 08/18/22 oxycodone-acetaminophen 10 mg-325 1 tab PO Q8H PRN pain 01/20/19 01/17/23 mg tablet oxycodone 10 mg tablet,crush 10 mg PO BID 09/02/19 01/17/23 resistant,extended release 12 hr (OxyContin) Previous Rx's Medication Instructions Recorded labetalol 100 mg tablet 100 mg PO BID #60 tabs 03/07/21 pantoprazole 40 mg tablet,delayed 40 mg PO BID #60 tabs 08/20/22 release (Protonix) Allergies Allergy/AdvReac Type Severity Reaction Status Date / Time No Known Allergies Allergy Verified 01/17/23 10:53 Review of Systems Review of Systems ROS Unobtainable: All systems reviewed & are unremarkable except as noted in HPI and below Patient History Medical History Barretts esophagus Chronic pain syndrome Diabetes type 2, uncontrolled Dysphagia Essential hypertension Gastric ulcer Hyperlipidemia PTSD (post-traumatic stress disorder) Rheumatoid arthritis Surgical History History of esophagogastroduodenoscopy (EGD) Family History Father Stroke Mother Stroke Other No pertinent family history Social History household members: none Smoking Status: Former smoker Smoking Status: Former smoker tobacco type: cigarettes alcohol intake frequency: 0-2 drinks per day Substance Use Type: does not use Exam Initial Vital Signs Initial Vital Signs: Vital Signs Pulse Rate 117 H 01/17/23 10:51 Respiratory Rate 36 H 01/17/23 10:51 Pulse Oximetry 98 01/17/23 10:51 Oxygen Flow Rate 2 01/17/23 10:51 GENERAL: Alert pleasant 72-year-old male and in no acute distress. HEENT: Head atraumatic,EOMI, pupils reactive, face symmetric, moist mucous membranes CARDIOVASCULAR: Regular rate and rhythm without murmurs, rubs or gallops. RESPIRATORY: Coarse breath sounds worse on right than left without wheezing mild tachypnea no conversational dyspnea ABDOMEN: Soft, nontender. Normoactive bowel sounds all 4 quadrants. No guarding or rebound. EXTREMITIES: Normal range of motion, no clubbing or edema. Neurovascularly intact NEUROLOGICAL: Alert and oriented x4. SKIN: Warm, dry, no laceration, no petechiae, no rashes or lesions. Course Orders Ordered: ED Orders 01/17/23 10:53 XR chest 1V Stat EKG-12 Lead Stat 01/17/23 11:10 Complete Blood Count AUTO DIFF Stat Comprehensive Metabolic Panel Stat Lactate (Lactic Acid) Stat Lipase Stat NT-proBNP (BNP-Adult 18+) Stat Partial Thromboplastin Time Stat Procalcitonin Stat Prothrombin Time INR Stat Troponin & CK Cardiac Panel Stat 01/17/23 13:09 Troponin & CK Cardiac Panel Stat 01/17/23 14:09 EKG-12 Lead Routine 01/17/23 14:10 COVID19 -Nasal RAPID/Pre-Proc Stat 01/17/23 15:06 EC echo doppler complete Stat 01/17/23 15:45 A1C [Hemoglobin A1C% w Est Avg Glu] Urgent Magnesium Urgent TSH w/ Reflex to FT4 Urgent 01/17/23 19:00 Troponin I Q6H 01/18/23 01:00 Troponin I Q6H 01/18/23 05:00 BMP [Basic Metabolic Panel] DAILY CBC Auto Diff [Complete Blood Count AUTO DIFF] DAILY 01/19/23 05:00 BMP [Basic Metabolic Panel] DAILY CBC Auto Diff [Complete Blood Count AUTO DIFF] DAILY 01/20/23 05:00 BMP [Basic Metabolic Panel] DAILY CBC Auto Diff [Complete Blood Count AUTO DIFF] DAILY Acetaminophen (Acetaminophen 325 Mg Tablet) 650 mg PO Q6H PRN PRN Reason: Fever/Mild Pain (1-3) Acetazolamide (Acetazolamide 250 Mg Tablet) 500 mg PO DAILY [facility] Last Admin: 01/17/23 15:47 Dose: 500 mg Documented By: SHASHANK Albuterol/Ipratropium (Albuterol/Ipratropium 3 Ml Ampul) 3 ml INH [id number] PRN PRN Reason: shortness of breath/wheezing Amlodipine Besylate (Amlodipine 5 Mg Tablet) 10 mg PO DAILY [facility] Last Admin: 01/17/23 15:43 Dose: Not Given Documented By: SHASHANK Aspirin (Aspirin Ec 81 Mg Tablet) 81 mg PO DAILY [facility] Atorvastatin Calcium (Atorvastatin 20 Mg Tablet) 40 mg PO BEDTIME [facility] Docusate Sodium (Docusate 100 Mg Capsule) 200 mg PO TID [facility] Fenofibrate (Fenofibrate, Micronized 67 Mg Capsule) 201 mg PO DAILY [facility] Furosemide (Furosemide 40 Mg/4 Ml Vial) 60 mg IV 1600,0800 [facility] Last Admin: 01/17/23 15:47 Dose: 60 mg Documented By: SHASHANK Heparin Sodium (Porcine) (Heparin 5,000 Unit/Ml Vial) 5,000 unit SUBCUT BID [facility] Hydralazine HCl (Hydralazine 25 Mg Tablet) 25 mg PO TID [facility] Last Admin: 01/17/23 15:43 Dose: Not Given Documented By: SHASHANK Melatonin (Melatonin 3 Mg Tablet) 6 mg PO BEDTIME PRN PRN Reason: Insomnia Naloxone HCl (Naloxone 0.4 Mg/Ml Vial) 0.2 mg IV Q2MIN PRN PRN Reason: Opiate Reversal Oxycodone HCl (Oxycodone Er 10 Mg Tab) 10 mg PO BID [facility] Oxycodone/Acetaminophen (Oxycodone/Acetaminophen 7.5/325 Tablet) 1 tab PO Q8H PRN PRN Reason: Pain, Moderate (4-6) Pantoprazole Sodium (Pantoprazole Dr 40 Mg Tablet) 40 mg PO BID [facility] Polyethylene Glycol (Polyethylene Glycol 3350 17 Gm Powd.Pack) 17 gm PO DAILY PRN PRN Reason: Constipation Potassium Chloride (Potassium [facility] 20 [facility]eq Tab) [facility] Admin: 01/17/23 15:47 Dose: 20 meq Documented By: SHASHANK Prednisone (Prednisone 20 Mg Tablet) 40 mg PO DAILY [facility] Stop: 01/22/23 08:59 Sennosides (Sennosides 8.6 Mg Tablet) 8.6 mg PO BID PRN PRN Reason: Constipation Discontinued Medications Albuterol (Albuterol 2.5 Mg/3 Ml Neb (Adult)) 2.5 mg INH NOW ONE Stop: 01/17/23 11:11 Last Admin: 01/17/23 11:16 Dose: 2.5 mg Documented By: SARANYA Amlodipine Besylate (Amlodipine 5 Mg Tablet) 10 mg PO NOW ONE Stop: 01/17/23 15:09 Last Admin: 01/17/23 15:47 Dose: 10 mg Documented By: SHASHANK Furosemide (Furosemide 40 Mg/4 Ml Vial) 40 mg IV NOW ONE Stop: 01/17/23 12:02 Last Admin: 01/17/23 12:15 Dose: 40 mg Documented By: DENNIS Hydralazine HCl (Hydralazine 25 Mg Tablet) 25 mg PO NOW ONE Stop: 01/17/23 15:09 Last Admin: 01/17/23 15:47 Dose: 25 mg Documented By: SHASHANK Methylprednisolone (Methylprednisolone 125 Mg/2 Ml Vial) 125 mg IV NOW ONE Stop: 01/17/23 11:11 Last Admin: 01/17/23 11:34 Dose: 125 mg Documented By: DENNIS Nitroglycerin (Nitroglycerin 0.4 Mg Sl Tab) 0.4 mg SL NOW ONE Stop: 01/17/23 13:36 Last Admin: 01/17/23 13:50 Dose: 0.4 mg Documented By: DENNIS Vital Signs Vital signs: Vital Signs - 8 hr 01/17/23 10:53 01/17/23 11:16 01/17/23 10:51 Temperature 97.4 F L Pulse Rate 122 H 99 H 117 H Respiratory Rate 28 H 20 36 H Blood Pressure 207/90 H Pulse Oximetry 92 93 98 Oxygen Delivery Method Room Air Room Air Oxygen Flow Rate 2 01/17/23 11:00 01/17/23 11:01 01/17/23 11:01 Temperature Pulse Rate 109 H 104 H Respiratory Rate 32 H Blood Pressure 177/77 H Pulse Oximetry 98 98 Oxygen Delivery Method Oxygen Flow Rate 01/17/23 11:30 01/17/23 11:30 01/17/23 12:00 Temperature Pulse Rate 100 H Respiratory Rate Blood Pressure 193/86 H 194/85 H Pulse Oximetry 93 Oxygen Delivery Method Room Air Oxygen Flow Rate 01/17/23 12:00 01/17/23 13:50 01/17/23 12:30 Temperature Pulse Rate 98 H 100 H 101 H Respiratory Rate Blood Pressure 220/95 H Pulse Oximetry 92 95 Oxygen Delivery Method Room Air Room Air Oxygen Flow Rate 01/17/23 12:31 01/17/23 12:31 01/17/23 13:00 Temperature Pulse Rate 100 H Respiratory Rate Blood Pressure 197/145 H 213/98 H Pulse Oximetry 96 Oxygen Delivery Method Oxygen Flow Rate 01/17/23 13:00 01/17/23 13:30 01/17/23 13:30 Temperature Pulse Rate 99 H 99 H Respiratory Rate 20 20 Blood Pressure 220/95 H Pulse Oximetry 96 97 Oxygen Delivery Method Oxygen Flow Rate 01/17/23 14:00 01/17/23 14:00 01/17/23 14:30 Temperature Pulse Rate 98 H Respiratory Rate 19 Blood Pressure 194/93 H 218/100 H Pulse Oximetry 96 Oxygen Delivery Method Oxygen Flow Rate 01/17/23 14:30 01/17/23 15:00 01/17/23 15:00 Temperature Pulse Rate 95 H 94 H Respiratory Rate 19 16 Blood Pressure 221/105 H Pulse Oximetry 98 98 Oxygen Delivery Method Oxygen Flow Rate MDM - SOB/Dyspnea Lab Data 01/17/23 11:10 01/17/23 11:10 Labs: Lab Results 01/17/23 01/17/23 01/17/23 Range/Units 11:10 11:10 11:10 WBC 11.7 H (4.5-11.0) X10^3/uL RBC 4.69 (4.5-5.9) X10^6/uL Hgb 9.1 L (13.5-17.5) g/dL Hct 29.2 L (41-53) % MCV 62.3 L (80-100) fL MCH 19.4 L (26-34) PG MCHC 31.1 (30-36) % RDW 20.8 H (11.6-14.8) % Plt Count 303 (150-400) X10^3/uL Neut % (Auto) 93.1 H (50-75) % Lymph % (Auto) 2.5 L (25-40) % [place] % (Auto) 3.1 (3-14) % Eos % (Auto) 0.9 L (2-4) % Baso % (Auto) 0.4 (0-2) % Neut # (Auto) 36068 H (8905-9241) /uL Lymph # (Auto) 300 L (6509-7335) /uL [place] # (Auto) 400 (0-900) /uL Eos # (Auto) 100 (0-450) /uL Baso # (Auto) 0 (0-100) /uL RBC Morphology Not Reportable Ovalocytes 1+ H PT 14.0 H (10.1-12.7) SECONDS INR 1.2 (0.9-1.3) APTT 23 L (26-36) SECONDS Sodium 138 (137-145) mmol/L Potassium 3.7 (3.4-5.1) mmol/L Chloride 103 (98-107) mmol/L Carbon Dioxide 26 (22-32) mmol/L BUN 22 H (9-20) mg/dL Creatinine 2.52 H (0.66-1.25) mg/dL Estimated GFR 26 L (>60) mL/min BUN/Creatinine Ratio 8.7 (6-22) Glucose 230 H (80-110) mg/dL Lactate (0.7-2.1) mmol/L Calcium 8.5 (8.4-10.2) mg/dL Total Bilirubin 0.4 (0.2-1.3) mg/dL AST 31 (17-59) IU/L ALT 23 (<50) IU/L Alkaline Phosphatase 74 (38-126) U/L Total Creatine Kinase 187 H (55-170) U/L CK-MB (CK-2) 3.30 H (<2.37) ng/mL CK-MB (CK-2) Rel Index 1.8 (1.5-5.0) % Troponin I 0.046 H (0.01-0.034) ng/mL NT-Pro-B Natriuret Pep 6580 H (<125) pg/mL Total Protein 6.1 L (6.3-8.2) g/dL Albumin 3.4 L (3.5-5.0) g/dL Globulin 2.7 (1.7-4.1) g/dL Albumin/Globulin Ratio 1.3 (1.0-2.8) Lipase 50 (23-300) U/L Procalcitonin 0.16 (<0.5) ng/mL SARS-CoV-2 (PCR) (Negative) 01/17/23 01/17/23 01/17/23 Range/Units 11:10 13:09 14:10 WBC (4.5-11.0) X10^3/uL RBC (4.5-5.9) X10^6/uL Hgb (13.5-17.5) g/dL Hct (41-53) % MCV (80-100) fL MCH (26-34) PG MCHC (30-36) % RDW (11.6-14.8) % Plt Count (150-400) X10^3/uL Neut % (Auto) (50-75) % Lymph % (Auto) (25-40) % [place] % (Auto) (3-14) % Eos % (Auto) (2-4) % Baso % (Auto) (0-2) % Neut # (Auto) (4315-4337) /uL Lymph # (Auto) (5065-4498) /uL [place] # (Auto) (0-900) /uL Eos # (Auto) (0-450) /uL Baso # (Auto) (0-100) /uL RBC Morphology Ovalocytes PT (10.1-12.7) SECONDS INR (0.9-1.3) APTT (26-36) SECONDS Sodium (137-145) mmol/L Potassium (3.4-5.1) mmol/L Chloride (98-107) mmol/L Carbon Dioxide (22-32) mmol/L BUN (9-20) mg/dL Creatinine (0.66-1.25) mg/dL Estimated GFR (>60) mL/min BUN/Creatinine Ratio (6-22) Glucose (80-110) mg/dL Lactate 1.9 (0.7-2.1) mmol/L Calcium (8.4-10.2) mg/dL Total Bilirubin (0.2-1.3) mg/dL AST (17-59) IU/L ALT (<50) IU/L Alkaline Phosphatase (38-126) U/L Total Creatine Kinase 173 H (55-170) U/L CK-MB (CK-2) 3.40 H (<2.37) ng/mL CK-MB (CK-2) Rel Index 2.0 (1.5-5.0) % Troponin I 0.113 H (0.01-0.034) ng/mL NT-Pro-B Natriuret Pep (<125) pg/mL Total Protein (6.3-8.2) g/dL Albumin (3.5-5.0) g/dL Globulin (1.7-4.1) g/dL Albumin/Globulin Ratio (1.0-2.8) Lipase (23-300) U/L Procalcitonin (<0.5) ng/mL SARS-CoV-2 (PCR) Negative (Negative) Imaging Data Chest x-ray: Radiologist's Impression: XRay Report Signed Patient: Nelson Goldstein MR#: [id number] : 1950 Acct:[id number] Age/Sex: 72 / M Date of Service: 01/17/23 Loc: ED Accession Number: [id number] ?? Procedure: XR chest 1V Ordering Provider: Emani Casanova D.O. PROCEDURE:? XR CHEST 1V ? INDICATIONS:? short of breath ? TECHNIQUE:? One view of the chest was acquired.? ? COMPARISON:? [facility], , XR CHEST 1V, 04/08/2022, 12:12. ? FINDINGS:? ? Surgical changes and devices:? None.? ? Lungs and pleura:? Mild patchy bilateral perihilar and bibasilar opacity.? No pleural effusions or pneumothorax.? ? Mediastinum:? Mediastinal contours appear normal.? Heart size is normal.? ? Bones and chest wall:? No suspicious bony lesions.? Overlying soft tissues appear unremarkable.? ? IMPRESSION:? Multifocal pneumonia. Continued plain film surveillance is recommended to ensure resolution, and to exclude underlying or central malignancy. ? ? Dictated by: Melba Nielsen M.D. on 01/17/2023 at 11:1 ECG Data Interpretation: Sinus rhythm rate 97 MS interval 150 QRS [address] depression in 1 aVL V5 and V6 without T-wave inversion or ST elevation new from previous EKG 08/17/2022 EKG 2. Sinus rhythm rate 97 MS interval 150 QRS [address] depression without elevation or T-wave inversion MDM Narrative Medical decision making narrative: Patient 72-year-old man history of COPD presenting today with worsening shortness of breath. He is found to have new onset congestive heart failure he is got increasing edema BNP is greater than 6000. Troponins are also indeterminate 0.04 repeat 0.11 likely secondary due to hypertension and demand ischemia. He is noted to be persistently hypertensive here in the emergency department but is relatively asymptomatic. He has no chest pain. His work of breathing is easy. He is given Lasix 40 mg IV. He is noted be anemic with hemoglobin 9.1 but that is relatively stable. He is also found to have acute kidney injury with a creatinine of 2.5 previously 1.7. Chest x-ray is read as multifocal pneumonia however patient is not having symptoms of pneumonia. He is afebrile with minimal leukocytosis and no cough. Procalcitonin is also negative. I did discuss with Dr. Mcneal on-call Cardiology in regards to blood pressure control. At this time he only recommends oral medications amlodipine 10 mg and hydralazine 25 mg b.i.d. or t.i.d.. No need for labetalol or other IV medications. Dr. Jack hospitalists updated on patient's symptoms test results and accepts patient Differential diagnosis is considered dissection, pulmonary embolism, acute coronary syndrome COPD exacerbation, congestive heart failure, pneumonia. Previous admission in August was also reviewed were he had GI bleeding requiring for past units and bleeding ulcer was found at the GE junction. Discharge Plan Departure Patient Disposition: Admitted As Inpatient Clinical Impression: New onset of congestive heart failure, Hypertensive emergency Admit Date/Time: 01/17/23 15:07 Admit Provider: Richard Jack
[2023-01-17] MEDS: methylPREDNISolone 125 MG/2 ML VIAL IV (11:34)
[2023-01-17 11:40] LABS: INR 1.2 (0.9-1.3)
[2023-01-17 11:43] LABS: PTT Partial Thromboplastin Tim 23 SECONDS (26-36)
[2023-01-17 11:44] LABS: Alanine Aminotransferase 23 IU/L (<50); Albumin 3.4 g/dL (3.5-5.0); Albumin Globulin Ratio 1.3 (1.0-2.8); Alkaline Phosphatase 74 U/L (38-126); Aspartate Aminotransferase 31 IU/L (17-59); BUN Creatinine Ratio 8.7 (6-22); Bilirubin Total 0.4 mg/dL (0.2-1.3); Blood Urea Nitrogen 22 mg/dL (9-20); Calcium 8.5 mg/dL (8.4-10.2); Carbon Dioxide 26 mmol/L (22-32); Chloride 103 mmol/L (98-107); Creatine Kinase 187 U/L (55-170); Estimated Glomerular Filt Rate 26 mL/min (>60); Globulin 2.7 g/dL (1.7-4.1); Glucose 230 mg/dL (80-110); HEMOLYSIS < 15 (0-50); Lipase 50 U/L (23-300); Potassium 3.7 mmol/L (3.4-5.1); Sodium 138 mmol/L (137-145); Total Protein 6.1 g/dL (6.3-8.2)
[2023-01-17 11:47] LABS: Lactate (Lactic Acid) 1.9 mmol/L (0.7-2.1)
[2023-01-17 11:50] LABS: Ovalocytes 1+
[2023-01-17 11:56] LABS: NT-proBNP (BNP-Adult 18+) 6580 pg/mL (<125); Troponin I 0.046 ng/mL (0.01-0.034)
[2023-01-17 12:01] LABS: CKMB % Relative Index 1.8 % (1.5-5.0); Procalcitonin 0.16 ng/mL (<0.5)
[2023-01-17] MEDS: FUROSEMIDE 40 MG/4 ML VIAL IV (12:15)
[2023-01-17 13:35] LABS: Creatine Kinase 173 U/L (55-170)
[2023-01-17 13:48] LABS: Troponin I 0.113 ng/mL (0.01-0.034)
[2023-01-17] MEDS: NITROGLYCERIN 0.4 MG SL TAB SL (13:50)
[2023-01-17 14:35] LABS: COVID19 -Nasal RAPID Negative (Negative)
--- NOTE | 2023-01-17 15:40 | PM.HP.1 ---
History of Present Illness History of Present Illness Date Patient Seen: 01/17/23 Chief complaint: COPD Narrative: Nelson Goldstein is a 72yo M with PMH of COPD, chronic pain, DM2, GI bleed from gastric ulcer, HTN, HLD, and RA who presents with CP, worsening SOB and LE swelling. Patient says this morning while having coffee he developed substernal chest pressure and SOB which felt dull and achy. Nonradiating and no diaphoresis, NV or clamminess. EMS was called and he was given albuterol and lasix in the ambulance which helped his symptoms significantly and his CP resolved. In the ED found to have BP 207/90. He says he doesn't check his BP often but it has gotten this high before. He only takes lisinopril which he took this morning. He notes he has been having increased leg swelling lately as well as dypsnea with exertion. He smoked 1ppd for 21 years but quit in 1988. Hasn't drank any alcohol for 6 months or so. Lives alone with his pets but has family in the area. He currently denies CP, SOB, NV, abd pain, or diarrhea. Patient History Medical History Barretts esophagus Chronic pain syndrome Diabetes type 2, uncontrolled Dysphagia Essential hypertension Gastric ulcer Hyperlipidemia PTSD (post-traumatic stress disorder) Rheumatoid arthritis Surgical History History of esophagogastroduodenoscopy (EGD) Family & Social History Family History Father Stroke Mother Stroke Other No pertinent family history Social History: household members none Safety & Behavioral: Feels Safe in Current Yes Environment Been Physically Hurt or No Threatened By a Person Tobacco & Substance use: Smoking Status Former smoker alcohol intake frequency 0-2 drinks per day Substance Use Type does not use Meds Home Medications and Allergies Home Medications Medication Instructions Recorded Confirmed Type atorvastatin 40 mg tablet (Lipitor) 40 mg PO QAM ##0 07/05/17 01/17/23 History fenofibrate 160 mg tablet 160 mg PO DAILY ##0 07/05/17 01/17/23 History nifedipine 60 mg tablet,extended 60 mg PO BID ##0 07/05/17 01/17/23 History release 24 hr docusate calcium 240 mg capsule 240 mg PO TID 01/20/19 01/17/23 History fluticasone propionate 50 1 spray intranasal DIRECTED 01/20/19 01/17/23 History mcg/actuation nasal spray,suspension lisinopril 40 mg tablet 40 mg PO DAILY 01/20/19 08/18/22 History oxycodone-acetaminophen 10 mg-325 1 tab PO Q8H PRN pain 01/20/19 01/17/23 History mg tablet oxycodone 10 mg tablet,crush 10 mg PO BID 09/02/19 01/17/23 History resistant,extended release 12 hr (OxyContin) labetalol 100 mg tablet 100 mg PO BID #60 tabs 03/07/21 01/17/23 Rx pantoprazole 40 mg tablet,delayed 40 mg PO BID #60 tabs 08/20/22 01/17/23 Rx release (Protonix) Allergies Allergy/AdvReac Type Severity Reaction Status Date / Time No Known Allergies Allergy Verified 01/17/23 10:53 Review of Systems Review of Systems Narrative: All other systems reviewed with the patient and are negative unless otherwise stated. Exam Vital Signs (past 8 hours): - 01/17/23 10:53 01/17/23 11:16 01/17/23 10:51 Temperature 97.4 F L Pulse Rate 122 H 99 H 117 H Respiratory Rate 28 H 20 36 H Blood Pressure 207/90 H Pulse Oximetry 92 93 98 Oxygen Delivery Method Room Air Room Air Oxygen Flow Rate 2 01/17/23 11:00 01/17/23 11:01 01/17/23 11:01 Temperature Pulse Rate 109 H 104 H Respiratory Rate 32 H Blood Pressure 177/77 H Pulse Oximetry 98 98 Oxygen Delivery Method Oxygen Flow Rate 01/17/23 11:30 01/17/23 11:30 01/17/23 12:00 Temperature Pulse Rate 100 H Respiratory Rate Blood Pressure 193/86 H 194/85 H Pulse Oximetry 93 Oxygen Delivery Method Room Air Oxygen Flow Rate 01/17/23 12:00 01/17/23 13:50 01/17/23 12:30 Temperature Pulse Rate 98 H 100 H 101 H Respiratory Rate Blood Pressure 220/95 H Pulse Oximetry 92 95 Oxygen Delivery Method Room Air Room Air Oxygen Flow Rate 01/17/23 12:31 01/17/23 12:31 01/17/23 13:00 Temperature Pulse Rate 100 H Respiratory Rate Blood Pressure 197/145 H 213/98 H Pulse Oximetry 96 Oxygen Delivery Method Oxygen Flow Rate 01/17/23 13:00 01/17/23 13:30 01/17/23 13:30 Temperature Pulse Rate 99 H 99 H Respiratory Rate 20 20 Blood Pressure 220/95 H Pulse Oximetry 96 97 Oxygen Delivery Method Oxygen Flow Rate 01/17/23 14:00 01/17/23 14:00 01/17/23 14:30 Temperature Pulse Rate 98 H Respiratory Rate 19 Blood Pressure 194/93 H 218/100 H Pulse Oximetry 96 Oxygen Delivery Method Oxygen Flow Rate 01/17/23 14:30 01/17/23 15:00 01/17/23 15:00 Temperature Pulse Rate 95 H 94 H Respiratory Rate 19 16 Blood Pressure 221/105 H Pulse Oximetry 98 98 Oxygen Delivery Method Oxygen Flow Rate 01/17/23 15:10 Temperature Pulse Rate Respiratory Rate Blood Pressure Pulse Oximetry Oxygen Delivery Method Room Air Oxygen Flow Rate Oxygen Delivery Method Room Air Oxygen Flow Rate 2 Narrative Exam Narrative: GEN: no acute distress, pleasant and cooperative HEENT: moist mucous membranes, PERRL NECK: trachea midline, no JVD CV: regular rate and rhythm, no murmurs PULM: faint crackles at bases ABD: soft, nontender, nondistended, no organomegaly EXT: warm and well perfused, taut with 2-3+ pitting edema to thighs NEURO: awake, alert, oriented, no focal deficits Objective Labs 01/17/23 11:10 01/17/23 11:10 Labs: Laboratory Results - last 24 hr 01/17/23 01/17/23 01/17/23 11:10 11:10 11:10 WBC 11.7 H RBC 4.69 Hgb 9.1 L Hct 29.2 L MCV 62.3 L MCH 19.4 L MCHC 31.1 RDW 20.8 H Plt Count 303 Neut % (Auto) 93.1 H Lymph % (Auto) 2.5 L [place] % (Auto) 3.1 Eos % (Auto) 0.9 L Baso % (Auto) 0.4 Neut # (Auto) 07960 H Lymph # (Auto) 300 L [place] # (Auto) 400 Eos # (Auto) 100 Baso # (Auto) 0 RBC Morphology Not Reportable Ovalocytes 1+ H PT 14.0 H INR 1.2 APTT 23 L Sodium 138 Potassium 3.7 Chloride 103 Carbon Dioxide 26 BUN 22 H Creatinine 2.52 H Estimated GFR 26 L BUN/Creatinine Ratio 8.7 Glucose 230 H Lactate Calcium 8.5 Total Bilirubin 0.4 AST 31 ALT 23 Alkaline Phosphatase 74 Total Creatine Kinase 187 H CK-MB (CK-2) 3.30 H CK-MB (CK-2) Rel Index 1.8 Troponin I 0.046 H NT-Pro-B Natriuret Pep 6580 H Total Protein 6.1 L Albumin 3.4 L Globulin 2.7 Albumin/Globulin Ratio 1.3 Lipase 50 Procalcitonin 0.16 SARS-CoV-2 (PCR) 01/17/23 01/17/23 01/17/23 11:10 13:09 14:10 WBC RBC Hgb Hct MCV MCH MCHC RDW Plt Count Neut % (Auto) Lymph % (Auto) [place] % (Auto) Eos % (Auto) Baso % (Auto) Neut # (Auto) Lymph # (Auto) [place] # (Auto) Eos # (Auto) Baso # (Auto) RBC Morphology Ovalocytes PT INR APTT Sodium Potassium Chloride Carbon Dioxide BUN Creatinine Estimated GFR BUN/Creatinine Ratio Glucose Lactate 1.9 Calcium Total Bilirubin AST ALT Alkaline Phosphatase Total Creatine Kinase 173 H CK-MB (CK-2) 3.40 H CK-MB (CK-2) Rel Index 2.0 Troponin I 0.113 H NT-Pro-B Natriuret Pep Total Protein Albumin Globulin Albumin/Globulin Ratio Lipase Procalcitonin SARS-CoV-2 (PCR) Negative Assessment & Plan Assessment & Plan narrative: # possible new-onset CHF exacerbation -dyspnea on exertion, LE edema and rales present on exam. BNP 6.5k. No history of CHF. -echo ordered -lasix 60mg IV BID -diamox 500mg daily to aid in decongestion -strict I/O's # chest pain with elevated troponin in the setting of HTN urgency -BP 200+ in ED -cardiology did not recommend heparin drip when ED called, no EKG changes -likely due to demand ischemia from CHF exacerbation and dyspnea vs HTN urgency -trend trops -if uptrending significantly consider starting heparin drip x48 hrs -may warrant stress test while admitted -start amlodipine 10 daily and hydralazine 25 TID per cards -continue home aspirin # SABRINA on CKD -Cr 2.52 on admission. Baseline 1.7. -followed outpatient by Dr. Mcgrath nephrology -likely venous congestion due to CHF, diuresis as above -holding home lisinopril -avoid nephrotoxic agents -daily BMP's # COPD, not in exacerbation -21 pack year smoker -no wheezing on exam, but albuterol helped by EMS so will continue duoneb -on room air # DM2 -holding home metformin -check A1c -low dose SSI # chronic pain -continue home morphine BID and oxy PRN # microcytic anemia -Hgb 9.1 and MCV 62 -check guiaic and iron panel -will give IV iron if needed # HLD, chronic -continue home fibrate and statin # GERD -continue home PPI Code status is full code. COVID negative. DVT prophylaxis with heparin subcutaneous. Proxy is daughter Marysol. I have reviewed home meds and used all available resources to reconcile the home meds. This patient will be admitted as inpatient and will require greater than 2 midnights of hospital time to treat CHF exacerbation. Time Spent With Patient Critical Care time: I spent a total of [] minutes of critical care time on this patient's care today; this time is exclusive of procedural time.
[2023-01-17] MEDS: acetaZOLAMIDE 250 MG TABLET 500 MG PO (15:47)
[2023-01-17] MEDS: AMLODIPINE 5 MG TABLET 10 MG PO (15:47)
[2023-01-17] MEDS: POTASSIUM CHLORIDE 20 MEQ TAB PO (15:47)
[2023-01-17] MEDS: FUROSEMIDE 40 MG/4 ML VIAL 60 MG IV (15:47)
[2023-01-17] MEDS: HYDRALAZINE 25 MG TABLET PO ×2 (15:47→21:16)
[2023-01-17 15:56] LABS: Appearance Urine UA CLEAR; Bilirubin Urine UA NEGATIVE (NEGATIVE); Color Urine UA YELLOW; Glucose Urine UA TRACE g/dL (Negative); Ketones Urine UA NEGATIVE (NEGATIVE); Leukocyte Esterase Urine UA NEGATIVE (NEGATIVE); Nitrite Urine UA NEGATIVE (Negative); Occult Blood Urine UA TRACE-INTACT (Negative); Protein Urine UA 2+ (Negative); Urobilinogen Urine UA 0.2 E.U./dL (0.2)
[2023-01-17 16:00] LABS: UR Morphine/Opiate cutoff 300 Positive (Negative); Ur Creatinine Normal (Normal); Ur Specific Gravity Normal (Normal); Urine Amphetamines Negative (Negative); Urine Barbiturates Negative (Negative); Urine Benzodiazepines Negative (Negative); Urine Cocaine Negative (Negative); Urine MDMA Negative (Negative); Urine Methadone Negative (Negative); Urine Methamphetamines Negative (Negative); Urine Oxycodone Positive (Negative); Urine Phencyclidine Negative (Negative); Urine Tetrahydrocannabinol Negative (Negative); Urine Tricyclic Antidepressant Negative (Negative); Urine pH Normal (Normal)
[2023-01-17 16:04] LABS: D Dimer 1029 ng/ml (<500)
[2023-01-17 16:08] LABS: Cholesterol 215 mg/dL (140-199); HDL Cholesterol 51 mg/dL (40-60); LDL Cholesterol Calculated 135 mg/dL (<100); Magnesium 1.8 mg/dL (1.6-2.3); Triglycerides 144 mg/dL (35-150)
[2023-01-17 16:15] LABS: Bacteria Urine Occasional (0-1); RBC Urine None Seen (0-5/HPF); Squamous Epithelial Cell Urine None Seen (0-5/HPF); WBC Urine None Seen (0-5/HPF)
[2023-01-17 16:16] LABS: Culture Indicated Urine Cult Not Indicated
[2023-01-17 16:19] LABS: Hemoglobin A1C% w Est Avg Glu 7.1 % (4.0-6.0)
--- NOTE | 2023-01-17 16:20 | DI.US.S_ITS ---
PROCEDURE: US PERIPH VENOUS LOW EXTREM BI INDICATIONS: ASSESS FOR DVT TECHNIQUE: Real-time imaging, as well as color and pulse Doppler interrogation, were performed of the deep veins of both legs from the inguinal ligament to the popliteal fossa. COMPARISON: None. FINDINGS: Right: The common femoral, femoral and popliteal veins are normally compressible, and free of intraluminal thrombus. Color and pulse Doppler demonstrate normal phasic intravascular flow. There is normal augmentation response to distal compression maneuver. Left: The common femoral, femoral and popliteal veins are normally compressible, and free of intraluminal thrombus. Color and pulse Doppler demonstrate normal phasic intravascular flow. There is normal augmentation response to distal compression maneuver. IMPRESSION: No sonographic evidence of deep venous thrombosis in the right or left lower extremity. Approved by: Isael Hernandez M.D. on 01/17/2023 at 18:37
[2023-01-17 16:59] LABS: TSH w/ Reflex to FT4 2.49 uIU/mL (0.47-4.68)
[2023-01-17 20:12] LABS: Troponin I 0.196 ng/mL (0.01-0.034)
[2023-01-17] MEDS: HEPARIN 5,000 UNIT/ML VIAL 5000 UNIT SUBCUT (21:14)
[2023-01-17] MEDS: INSULIN LISPRO 100 UNIT/ML 3ML VIAL SUBCUT (21:15)
[2023-01-17] MEDS: ATORVASTATIN 20 MG TABLET 40 MG PO (21:16)
[2023-01-17] MEDS: PANTOPRAZOLE DR 40 MG TABLET PO (21:16)
[2023-01-17] MEDS: MELATONIN 3 MG TABLET 6 MG PO (21:16)
[2023-01-17] MEDS: DOCUSATE 100 MG CAPSULE 200 MG PO (21:16)
[2023-01-17] MEDS: SODIUM CHLORIDE 0.9% FLUSH 10 ML IV (21:16)
[2023-01-17] MEDS: OXYCODONE ER 10 MG TAB PO (21:17)
[2023-01-18] VITALS (9 sets, daily range): BP systolic 140–186; BP diastolic 62–92; PULSE 80–90; RESP 16–20; TEMP 35.7–36.8; O2SAT 97–100
[2023-01-18 01:31] LABS: BUN Creatinine Ratio 11.3 (6-22); Blood Urea Nitrogen 31 mg/dL (9-20); Calcium 8.3 mg/dL (8.4-10.2); Carbon Dioxide 25 mmol/L (22-32); Chloride 100 mmol/L (98-107); Estimated Glomerular Filt Rate 24 mL/min (>60); Glucose 204 mg/dL (80-110); HEMOLYSIS < 15 (0-50); Potassium 3.3 mmol/L (3.4-5.1); Sodium 135 mmol/L (137-145)
[2023-01-18] MEDS: ACETAMINOPHEN 325 MG TABLET 650 MG PO (01:33)
[2023-01-18 01:42] LABS: Add Manual Diff / Slide Review NO; Basophils Absolute Auto 0 /uL (0-100); Basophils Percent Auto 0.1 % (0-2); Eosinophils Absolute Auto 0 /uL (0-450); Hematocrit 26.5 % (41-53); Hemoglobin 8.4 g/dL (13.5-17.5); Lymphocytes Absolute Auto 400 /uL (1100-4500); Lymphocytes Percent Auto 5.8 % (25-40); Mean Corpuscular HGB Conc 31.8 % (30-36); Mean Corpuscular Hemoglobin 19.5 PG (26-34); Mean Corpuscular Volume 61.5 fL (80-100); Monocytes Absolute Auto 100 /uL (0-900); Monocytes Percent Auto 1.8 % (3-14); Neutrophils Absolute Auto 5700 /uL (1500-7000); Neutrophils Percent Auto 92.3 % (50-75); Platelet Count 298 X10^3/uL (150-400); Red Blood Cell Count 4.31 X10^6/uL (4.5-5.9); Red Cell Distribution Width 20.7 % (11.6-14.8); White Blood Cell Count 6.2 X10^3/uL (4.5-11.0)
[2023-01-18 01:45] LABS: HEMOLYSIS < 15 (0-50); Iron 14 ug/dL (49-181)
[2023-01-18 01:48] LABS: Troponin I 0.188 ng/mL (0.01-0.034)
[2023-01-18 01:55] LABS: Percent Iron Saturation 4 % (20-50); Total Iron Binding Capacity 380 ug/dL (261-462); Transferrin 268 mg/dL (206-381)
[2023-01-18 02:01] LABS: Anisocytosis 2+; Ovalocytes 1+
[2023-01-18 02:06] LABS: Ferritin 11 ng/mL (18-464)
--- NOTE | 2023-01-18 06:28 | PC.NURSE ---
I agree with Marjorie Rns assessment, documentations, and interventions.
--- NOTE | 2023-01-18 07:09 | DI.ECHO.S_ITS ---
Interpretation Summary The left ventricle is borderline dilated. Left ventricular systolic function is low normal. The ejection fraction is estimated to be 50-55%. Compared to the prior exam, the left ventricular function is reduced. Image quality is reduced but therer appears to be hypokinesis along inferior, inferolateral, and maybe part of anterolateral segments seen in apical views. Diastolic parameters suggest a pseudonormalization pattern, consistent with probable elevated filling pressures. LV fillling pressures have significantly increased since prior study. The right ventricle is normal in size and function. The right ventricular systolic pressure is estimated to be at least 56 mmHg based on an estimated right atrial pressure of 15 mm Hg. Compared to the prior echo exam, there has been an increase in the severity of pulmonary hypertension. The left atrium is moderately dilated. Both atria have mildly increased in size since the prior echo exam. There is moderate mitral regurgitation. This is an increase compared to the previous study. MR could be ischemic papillary muscle dysfunction. There is no other significant valvular heart disease. The aortic root is normal size. Procedure: A two-dimensional transthoracic echocardiogram with color flow and Doppler was performed. The study quality was technically adequate. The patient was in sinus rhythm with heart rates between 73-85 bpm during the exam. The patient had occasional PVCs during the exam. Left Ventricle: The left ventricle is borderline dilated. There is normal left ventricular wall thickness. Left ventricular systolic function is low normal. The ejection fraction is estimated to be 50-55%. Compared to the prior exam, the left ventricular function is reduced. Image quality is reduced but therer appears to be hypokinesis along inferior, inferolateral, and maybe part of anterolateral segments seen in apical views. Diastolic parameters suggest a pseudonormalization pattern, consistent with probable elevated filling pressures. LV fillling pressures have significantly increased since prior study. Right Ventricle: The right ventricle is normal in size and function. Atria: The left atrium is moderately dilated. Both atria have mildly increased in size since the prior echo exam. The right atrium is borderline dilated. Mitral Valve: The mitral valve leaflets appear mildly thickened, but open well. The mitral valve leaflets appear to open well. The mitral valve leaflets are slightly calcified. There is moderate mitral regurgitation. This is an increase compared to the previous study. MR could be ischemic papillary muscle dysfunction. Aortic Valve: The aortic valve is normal in structure and function. There is trace aortic regurgitation. Tricuspid Valve: The tricuspid valve is normal in structure and function. There is mild tricuspid regurgitation. The right ventricular systolic pressure is estimated to be at least 56 mmHg based on an estimated right atrial pressure of 15 mm Hg. Compared to the prior echo exam, there has been an increase in the severity of pulmonary hypertension. Pulmonic Valve: The pulmonic valve leaflets are thin and pliable; valve motion is normal. There is a trace or physiologic amount of pulmonic regurgitation. There is no other significant valvular heart disease. Great Vessels: The aortic root is normal size. The ascending aorta is normal in size. The pulmonary artery is normal size. The IVC is dilated (diameter is greater than 2.1 cm) and it collapses less than 50% with a sniff. This suggests a high right atrial pressure of 15 mm Hg. Pericardium/ Pleura There is no pericardial effusion. There is no pleural effusion. MMode/2D Measurements & Calculations LVIDd: 5.5 cm LVOT diam: 1.9 cm LVIDs: 3.9 cm Ao root diam: 3.1 cm FS: 28.6 % asc Aorta Diam: 3.2 cm EPSS: 0.86 cm IVSd: 1.0 cm LVPWd: 0.93 cm LV mark. diameter/BSA (cm/m^2): 2.5 LV sys. diameter/BSA (cm/m^2): 1.8 LA A2 area: 25.4 cm2 RA long axis: 5.3 cm LA A4 area: 26.1 cm2 RA area: 20.3 cm2 LA length (vol): 5.7 cm RA vol: 66.1 ml LA vol: 99.2 ml RA : 30.3 ml/m2 LA vol index: 45.5 ml/m2 RVD1 (basal): 3.5 cm TAPSE: 2.3 cm Doppler Measurements & Calculations Ao V2 max: 139.6 cm/sec LVOT Max Geovanny: 76.0 cm/sec Ao V2 mean: 100.6 cm/sec LV V1 max P.3 mmHg Ao max P.8 mmHg LV V1 VTI: 15.5 cm Ao mean P.4 mmHg HONEY(I,D): 1.6 cm2 Ao V2 VTI: 27.0 cm HONEY(V,D): 1.6 cm2 sev ratio: 0.57 HONEY indexed to BSA (cm^2/m^2): 0.75 MV E max geovanny: 132.2 cm/sec TR max geovanny: 321.2 cm/sec MV A max geovanny: 72.2 cm/sec TR max P.3 mmHg MV E/A: 1.8 PA V2 max: 84.4 cm/sec Med Peak E' Geovanny: 3.7 cm/sec PA V2 mean: 68.4 cm/sec E/E' med: 36.0 PA mean P.0 mmHg Lat Peak E' Geovanny: 9.8 cm/sec E/E' lat: 13.4 E/e' average: 24.7 MV dec time: 0.22 sec MVA(VTI): 1.5 cm2 MV V2 mean: 99.7 cm/sec MR VTI: 202.4 cm MV mean P.4 mmHg MV V2 VTI: 30.4 cm SV(LVOT): 44.3 ml Reading Physician:08:22 AM
--- NOTE | 2023-01-18 07:29 | DI.US.S_ITS ---
PROCEDURE: US RENAL COMPLETE INDICATIONS: ACUTE KIDNEY INJURY TECHNIQUE: Real-time scanning was performed of the kidneys and bladder, with image documentation. COMPARISON: None. FINDINGS: Kidneys: Kidneys are normal in size. Right kidney measures 11.8 cm long; left kidney measures 11.5 cm long. Right renal cortical thickness is 0.8 cm; left renal cortical thickness is 1.5 cm. Renal cortical echotexture is normal. No hydronephrosis or nephrolithiasis. No suspicious solid mass lesions. 1.5 x 1.2 x 1.2 cm simple cyst is noted in right renal pelvis. Bladder: Pre-void bladder volume is 88.6 mL. Pre-void images demonstrate no intraluminal masses or stones. On pre-void images, no ureteral jets are noted with color Doppler interrogation. (Of note, ureteral jets may not be detectable in up to 25% of cases due to insufficient differences in specific gravity between ureteral and bladder urine). Miscellaneous: No free pelvic fluid. IMPRESSION: 1. Right peripelvic renal cyst as above. No solid appearing renal lesion or hydronephrosis. No perinephric fluid. 2. Normal appearing partially distended urinary bladder. Dictated by: Víctor Pepe M.D. on 01/18/2023 at 8:24 Approved by: Víctor Pepe M.D. on 01/18/2023 at 8:25
[2023-01-18] MEDS: ferumoxytoL 1,020 MG in SODIUM CHLORIDE 0.9% 250 ML 568 MG IV (08:20)
[2023-01-18] MEDS: INSULIN LISPRO 100 UNIT/ML 3ML VIAL SUBCUT ×3 (08:23→17:13)
[2023-01-18] MEDS: FENOFIBRATE, MICRONIZED 67 MG CAPSULE 201 MG PO (08:23)
[2023-01-18] MEDS: DOCUSATE 100 MG CAPSULE 200 MG PO ×3 (08:24→21:56)
[2023-01-18] MEDS: acetaZOLAMIDE 250 MG TABLET 500 MG PO (08:24)
[2023-01-18] MEDS: POTASSIUM CHLORIDE 20 MEQ TAB 40 MEQ PO (08:24)
[2023-01-18] MEDS: PANTOPRAZOLE DR 40 MG TABLET PO ×2 (08:24→21:56)
[2023-01-18] MEDS: OXYCODONE ER 10 MG TAB PO ×2 (08:24→21:56)
[2023-01-18] MEDS: ASPIRIN EC 81 MG TABLET PO (08:24)
[2023-01-18] MEDS: HYDRALAZINE 25 MG TABLET PO ×3 (08:24→21:55)
[2023-01-18] MEDS: AMLODIPINE 5 MG TABLET 10 MG PO (08:24)
[2023-01-18] MEDS: HEPARIN 5,000 UNIT/ML VIAL 5000 UNIT SUBCUT (08:41)
[2023-01-18] MEDS: FUROSEMIDE 40 MG/4 ML VIAL 60 MG IV (08:41)
--- NOTE | 2023-01-18 09:20 | CM.DANOTE ---
Addendum entered by JEAN CLAUDE Hammonds 01/18/23 09:27: Correction: Daughter Marysol is not in [place] as listed below wrong patient Original Note: Initial DCP Assessment Note Pt is a 72 yo male, resident of [place], arrives with increasing shortness of breath/dyspnea and admitted for management of possible new-onset CHF exacerbation, HTN urgency SABRINA on CKD and COPD exacerbation PCP: Kristopher Espinoza Payer: [facility]/ for [facility] Reviewed chart, pt discussed with TOIBN Canales this morning. Patient is eager to return home today and is walking independently throughout the hallways. Dr Jack's assessment is pending, patient may be discharged home w/close outpatient f/u recommended No barriers identified at this time to patient's safe discharge home w/family to assist; close outpatient f/u recommended. JEAN CLAUDE Bennett Discharge Planning/Care Management CM Discharge Assessment Start: 01/18/23 09:16 Freq: Status: Active Protocol: Document 01/18/23 09:17 BORIS (Rec: 01/18/23 09:20 [id number]) Discharge Planning Assessment Assigned [employer] JEAN CLAUDE Gomes DPOA/Assigned Designee Name Marysol Goldstein, daughter ( currently in [place]) Contact Information [phone] Advance Directives? Yes Advance Directives on File Yes History Provided By Patient,Medical Record Prior Living Arrangements House Household Members none Type of transporation used prior to Drives own vehicle admit Independent with ADL's Yes Is patient alert and oriented? Yes Barriers to Discharge No Comment Home w/dtr to assist as needed . Patient is up and ambulating the hallway this morning. Discharge Plan Home Transportation Arrangement Daughter Referrals Initiated None needed
[2023-01-18] MEDS: MAGNESIUM SULFATE 2 GM/50 ML PIGGYBACK IV (09:43)
[2023-01-18] MEDS: OXYCODONE/ACETAMINOPHEN 7.5/325 TABLET 1 TAB PO (12:46)
[2023-01-18] MEDS: FUROSEMIDE 40 MG/4 ML VIAL 80 MG IV (15:29)
--- NOTE | 2023-01-18 16:25 | P.PN_ITS ---
Subjective Subjective Date Patient Seen: 01/18/23 Interval history: Patient notes he isn't peeing very much. Still has 2-3+ swelling in legs. He would like to go home but willing to stay another day for diuresis. Exam Vital Signs (past 8 hours): - 01/18/23 08:36 01/18/23 09:06 01/18/23 13:00 Temperature 97.7 F 98 F Pulse Rate 86 80 87 Respiratory Rate 16 16 Blood Pressure 186/86 H 179/81 H 150/78 H Pulse Oximetry 100 98 Oxygen Flow Rate 0 0 01/18/23 15:34 Temperature Pulse Rate 80 Respiratory Rate Blood Pressure 150/79 H Pulse Oximetry Oxygen Flow Rate Oxygen Delivery Method Room Air Oxygen Flow Rate 0 Narrative Exam Narrative: GEN: no acute distress, pleasant and cooperative HEENT: moist mucous membranes, PERRL NECK: trachea midline, no JVD CV: regular rate and rhythm, no murmurs PULM: faint crackles at bases ABD: soft, nontender, nondistended, no organomegaly EXT: warm and well perfused, taut with 2-3+ pitting edema to thighs NEURO: awake, alert, oriented, no focal deficits Objective Labs 01/18/23 01:06 01/18/23 01:06 Labs: Laboratory Results - last 24 hr 01/17/23 01/17/23 01/18/23 15:45 19:07 01:06 WBC RBC Hgb Hct MCV MCH MCHC RDW Plt Count Neut % (Auto) Lymph % (Auto) [place] % (Auto) Eos % (Auto) Baso % (Auto) Neut # (Auto) Lymph # (Auto) [place] # (Auto) Eos # (Auto) Baso # (Auto) RBC Morphology Anisocytosis Ovalocytes Sodium Potassium Chloride Carbon Dioxide BUN Creatinine Estimated GFR BUN/Creatinine Ratio Glucose Calcium Iron 14 L TIBC 380 % Saturation 4 L Transferrin 268 Ferritin Troponin I 0.196 H* TSH 2.49 01/18/23 01/18/23 01/18/23 01:06 01:06 01:06 WBC 6.2 RBC 4.31 L Hgb 8.4 L Hct 26.5 L MCV 61.5 L MCH 19.5 L MCHC 31.8 RDW 20.7 H Plt Count 298 Neut % (Auto) 92.3 H Lymph % (Auto) 5.8 L [place] % (Auto) 1.8 L Eos % (Auto) 0.0 L Baso % (Auto) 0.1 Neut # (Auto) 5700 Lymph # (Auto) 400 L [place] # (Auto) 100 Eos # (Auto) 0 Baso # (Auto) 0 RBC Morphology See below Anisocytosis 2+ H Ovalocytes 1+ H Sodium Potassium Chloride Carbon Dioxide BUN Creatinine Estimated GFR BUN/Creatinine Ratio Glucose Calcium Iron TIBC % Saturation Transferrin Ferritin 11 L Troponin I 0.188 H* TSH 01/18/23 01:06 WBC RBC Hgb Hct MCV MCH MCHC RDW Plt Count Neut % (Auto) Lymph % (Auto) [place] % (Auto) Eos % (Auto) Baso % (Auto) Neut # (Auto) Lymph # (Auto) [place] # (Auto) Eos # (Auto) Baso # (Auto) RBC Morphology Anisocytosis Ovalocytes Sodium 135 L Potassium 3.3 L Chloride 100 Carbon Dioxide 25 BUN 31 H Creatinine 2.75 H Estimated GFR 24 L BUN/Creatinine Ratio 11.3 Glucose 204 H Calcium 8.3 L Iron TIBC % Saturation Transferrin Ferritin Troponin I TSH PFSH Medical History Barretts esophagus Chronic pain syndrome Diabetes type 2, uncontrolled Dysphagia Essential hypertension Gastric ulcer Hyperlipidemia PTSD (post-traumatic stress disorder) Rheumatoid arthritis Surgical History History of esophagogastroduodenoscopy (EGD) Family History Father Stroke Mother Stroke Other No pertinent family history Social History household members: none Smoking Status: Former smoker Assessment & Plan Assessment & Plan narrative: # acute mitral regurg exacerbation with volume overload -dyspnea on exertion, LE edema and rales present on exam. BNP 6.5k. No history of CHF. -echo shows EF 50-55%, worsened mitral regurg due to possible ischemic papillary muscle dysfunction, 53 RVSP, hypokinesis ofinferior and lateral gonzalez -lasix 80mg IV BID -diamox 500mg daily to aid in decongestion -strict I/O's -patient will likely need ischemic eval by cardiology as outpatient due to possible previous AK causing papillary dysfunction # chest pain with elevated troponin in the setting of HTN urgency, improving -BP 200+ in ED -cardiology did not recommend heparin drip when ED called, no EKG changes -likely due to demand ischemia from CHF exacerbation and dyspnea vs HTN urgency -trops 0.046>0.113>0.196>0.188 -will need outpatient ischemic workup with cardiology -continue amlodipine 10 daily and hydralazine 25 TID per cards -continue home aspirin # SABRINA on CKD -Cr 2.52 on admission. Baseline 1.7. -followed outpatient by Dr. Mcgrath nephrology -likely venous congestion due to CHF, diuresis as above -renal US normal -holding home lisinopril -avoid nephrotoxic agents -daily BMP's # COPD, not in exacerbation -21 pack year smoker -no wheezing on exam, but albuterol helped by EMS so will continue duoneb -on room air # DM2 -holding home metformin -check A1c -low dose SSI # chronic pain -continue home morphine BID and oxy PRN # microcytic anemia -Hgb 9.1 and MCV 62 -check guiaic and iron panel -will give IV iron if needed # HLD, chronic -continue home fibrate and statin # GERD -continue home PPI Code status is full code. COVID negative. DVT prophylaxis with heparin subcutaneous. Proxy is daughter Marysol. Dispo: Home in 1-2 days. Time Spent With Patient Critical Care time: I spent a total of [] minutes of critical care time on this patient's care today; this time is exclusive of procedural time.
[2023-01-18] MEDS: MELATONIN 3 MG TABLET 6 MG PO (21:55)
[2023-01-18] MEDS: ATORVASTATIN 20 MG TABLET 40 MG PO (21:55)
[2023-01-19] VITALS (12 sets, daily range): BP systolic 160–195; BP diastolic 67–93; PULSE 71–90; RESP 16–21; TEMP 35.9–36.4; O2SAT 97–100
[2023-01-19] MEDS: HEPARIN 5,000 UNIT/ML VIAL 5000 UNIT SUBCUT ×3 (00:02→20:51)
[2023-01-19] MEDS: SODIUM CHLORIDE 0.9% FLUSH 10 ML IV ×3 (00:03→21:05)
[2023-01-19 05:59] LABS: BUN Creatinine Ratio 13.6 (6-22); Blood Urea Nitrogen 44 mg/dL (9-20); Calcium 8.4 mg/dL (8.4-10.2); Carbon Dioxide 26 mmol/L (22-32); Chloride 102 mmol/L (98-107); Estimated Glomerular Filt Rate 19 mL/min (>60); Glucose 138 mg/dL (80-110); HEMOLYSIS < 15 (0-50); Potassium 3.1 mmol/L (3.4-5.1); Sodium 137 mmol/L (137-145)
[2023-01-19 06:03] LABS: Add Manual Diff / Slide Review NO; Basophils Absolute Auto 0 /uL (0-100); Basophils Percent Auto 0.7 % (0-2); Eosinophils Absolute Auto 100 /uL (0-450); Hemoglobin 8.6 g/dL (13.5-17.5); Lymphocytes Absolute Auto 800 /uL (1100-4500); Lymphocytes Percent Auto 13.4 % (25-40); Mean Corpuscular Hemoglobin 19.8 PG (26-34); Mean Corpuscular Volume 61.8 fL (80-100); Monocytes Absolute Auto 500 /uL (0-900); Neutrophils Absolute Auto 4900 /uL (1500-7000); Neutrophils Percent Auto 76.9 % (50-75); Platelet Count 281 X10^3/uL (150-400); Red Blood Cell Count 4.37 X10^6/uL (4.5-5.9); Red Cell Distribution Width 20.8 % (11.6-14.8); White Blood Cell Count 6.3 X10^3/uL (4.5-11.0)
[2023-01-19 07:07] LABS: Magnesium 2.2 mg/dL (1.6-2.3)
[2023-01-19 07:27] LABS: Microcytosis 3+; Ovalocytes 1+
--- NOTE | 2023-01-19 08:10 | P.PN_ITS ---
Subjective Subjective Date Patient Seen: 01/19/23 Interval history: Patient's Cr bumped to 3.2 overnight. Lasix stopped. Noticed UA had 2+ protein so protein/Cr ratio sent and returned with nephrotic range proteinuria at 8g/day. Exam Vital Signs (past 8 hours): - 01/19/23 01:40 01/19/23 04:39 01/19/23 04:56 Temperature 96.8 F L 96.7 F L Pulse Rate 75 76 Respiratory Rate 18 18 Blood Pressure 170/83 H 195/93 H 167/67 H Pulse Oximetry 100 99 Oxygen Flow Rate 0 0 Oxygen Delivery Method Room Air Oxygen Flow Rate 0 Narrative Exam Narrative: GEN: no acute distress, pleasant and cooperative HEENT: moist mucous membranes, PERRL NECK: trachea midline, no JVD CV: regular rate and rhythm, no murmurs PULM: faint crackles at bases ABD: soft, nontender, nondistended, no organomegaly EXT: warm and well perfused, bilateral LE taut with 3+ pitting edema to knees NEURO: awake, alert, oriented, no focal deficits Objective Labs 01/19/23 05:20 01/19/23 05:20 Labs: Laboratory Results - last 24 hr 01/19/23 01/19/23 01/19/23 05:20 05:20 05:20 WBC 6.3 RBC 4.37 L Hgb 8.6 L Hct 27.0 L MCV 61.8 L MCH 19.8 L MCHC 32.0 RDW 20.8 H Plt Count 281 Neut % (Auto) 76.9 H Lymph % (Auto) 13.4 L [place] % (Auto) 8.0 Eos % (Auto) 1.0 L Baso % (Auto) 0.7 Neut # (Auto) 4900 Lymph # (Auto) 800 L [place] # (Auto) 500 Eos # (Auto) 100 Baso # (Auto) 0 RBC Morphology Not Reportable Microcytosis 3+ H Ovalocytes 1+ H Sodium 137 Potassium 3.1 L Chloride 102 Carbon Dioxide 26 BUN 44 H Creatinine 3.24 H Estimated GFR 19 L BUN/Creatinine Ratio 13.6 Glucose 138 H Calcium 8.4 Magnesium 2.2 PFSH Medical History Barretts esophagus Chronic pain syndrome Diabetes type 2, uncontrolled Dysphagia Essential hypertension Gastric ulcer Hyperlipidemia PTSD (post-traumatic stress disorder) Rheumatoid arthritis Surgical History History of esophagogastroduodenoscopy (EGD) Family History Father Stroke Mother Stroke Other No pertinent family history Social History household members: none Smoking Status: Former smoker Assessment & Plan Assessment & Plan narrative: # nephrotic syndrome -UA with 2+ protein, protein/Cr ratio of 8g/day consistent with nephrotic syndrome -explains patient's profound LE edema -spoke with lebron Villanueva at [facility] who recommended no further diuresis, waiting until Cr is stable then discharging on torsemide 100mg daily or BID if he gains more than 5 pounds with spironolactone 12.5mg daily. 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 -labs ordered for GN including RAJI, ANCA, HIV, Hepatitis panel, RPR, C3/C4, CH50 and PLA2R -trend Cr # mitral regurg -dyspnea on exertion, LE edema and rales present on exam. BNP 6.5k. No history of CHF. -echo shows EF 50-55%, worsened mitral regurg due to possible ischemic papillary muscle dysfunction, 53 RVSP, hypokinesis ofinferior and lateral gonzalez -lasix 80mg IV BID -diamox 500mg daily to aid in decongestion -strict I/O's -patient will likely need ischemic eval by cardiology as outpatient due to possible previous [place] causing papillary dysfunction # chest pain with elevated troponin in the setting of HTN urgency, improving -BP 200+ in ED -cardiology did not recommend heparin drip when ED called, no EKG changes -likely due to demand ischemia from CHF exacerbation and dyspnea vs HTN urgency -trops 0.046>0.113>0.196>0.188 -will need outpatient ischemic workup with cardiology -continue amlodipine 10 daily and hydralazine 25 TID per cards -continue home aspirin # SABRINA on CKD -Cr 2.52 on admission. Baseline 1.7. -followed outpatient by Dr. Mcgrath nephrology -likely venous congestion due to CHF, diuresis as above -renal US normal -holding home lisinopril -avoid nephrotoxic agents -daily BMP's # COPD, not in exacerbation -21 pack year smoker -no wheezing on exam, but albuterol helped by EMS so will continue duoneb -on room air # DM2 -holding home metformin -A1c 7.1% -low dose SSI # chronic pain -continue home morphine BID and oxy PRN # iron deficiency anemia likely due to CKD -Hgb 9.1 and MCV 62 -iron panel with ferritin 11 and iron 14, sat 4% -gave dose of feraheme on 01/18 # HLD, chronic -continue home fibrate and statin # GERD -continue home PPI Code status is full code. COVID negative. DVT prophylaxis with heparin subcutaneous. Proxy is daughter Marysol. Dispo: Home in 1-2 days pending improvement in kidney function. Time Spent With Patient Critical Care time: I spent a total of [] minutes of critical care time on this patient's care t vandana; this time is exclusive of procedural time.
[2023-01-19] MEDS: INSULIN LISPRO 100 UNIT/ML 3ML VIAL SUBCUT ×2 (08:20→12:18)
[2023-01-19] MEDS: SODIUM CHLORIDE 0.9% 1,000 ML 1000 ML IV (08:23)
[2023-01-19] MEDS: HYDRALAZINE 25 MG TABLET PO ×2 (08:24→15:27)
[2023-01-19] MEDS: POTASSIUM CHLORIDE 20 MEQ TAB 40 MEQ PO (08:25)
[2023-01-19] MEDS: AMLODIPINE 5 MG TABLET 10 MG PO (08:25)
[2023-01-19] MEDS: FENOFIBRATE, MICRONIZED 67 MG CAPSULE 201 MG PO (08:25)
[2023-01-19] MEDS: ASPIRIN EC 81 MG TABLET PO (08:25)
[2023-01-19] MEDS: PANTOPRAZOLE DR 40 MG TABLET PO ×2 (08:26→20:50)
[2023-01-19] MEDS: DOCUSATE 100 MG CAPSULE 200 MG PO ×3 (08:28→20:50)
[2023-01-19] MEDS: OXYCODONE/ACETAMINOPHEN 7.5/325 TABLET 1 TAB PO ×2 (09:08→18:08)
[2023-01-19 11:37] LABS: Blood Urea Nitrogen 43 mg/dL (9-20); Calcium 8.4 mg/dL (8.4-10.2); Carbon Dioxide 25 mmol/L (22-32); Chloride 102 mmol/L (98-107); Estimated Glomerular Filt Rate 21 mL/min (>60); Glucose 143 mg/dL (80-110); HEMOLYSIS < 15 (0-50); Potassium 4.1 mmol/L (3.4-5.1); Sodium 138 mmol/L (137-145)
[2023-01-19] MEDS: OXYCODONE ER 10 MG TAB PO ×2 (12:18→20:49)
[2023-01-19 12:35] LABS: Creatinine Urine Random 55.7 mg/dL
[2023-01-19 12:42] LABS: Protein (Total) Urine Random 444 mg/dL (0-12); Protein Creatinine Ratio Urine 7.97 GRAM/24H
[2023-01-19 16:38] LABS: HIV 1 & 2 Ab/Ag 4th Gen Combo NEGATIVE (NEGATIVE)
[2023-01-19] MEDS: ATORVASTATIN 20 MG TABLET 40 MG PO (20:51)
[2023-01-19] MEDS: HYDRALAZINE 25 MG TABLET 50 MG PO (20:56)
[2023-01-19] MEDS: MELATONIN 3 MG TABLET 6 MG PO (23:37)
[2023-01-20] VITALS (7 sets, daily range): BP systolic 164–197; BP diastolic 70–99; PULSE 75–92; RESP 16–22; TEMP 35.7–36.1; O2SAT 99–100
[2023-01-20 06:40] LABS: Basophils Absolute Auto 100 /uL (0-100); Basophils Percent Auto 0.9 % (0-2); Eosinophils Absolute Auto 200 /uL (0-450); Eosinophils Percent Auto 2.7 % (2-4); Hematocrit 30.4 % (41-53); Hemoglobin 9.7 g/dL (13.5-17.5); Lymphocytes Absolute Auto 1200 /uL (1100-4500); Lymphocytes Percent Auto 15.1 % (25-40); Mean Corpuscular HGB Conc 31.9 % (30-36); Mean Corpuscular Hemoglobin 19.8 PG (26-34); Mean Corpuscular Volume 62.1 fL (80-100); Monocytes Absolute Auto 600 /uL (0-900); Monocytes Percent Auto 7.3 % (3-14); Neutrophils Absolute Auto 5700 /uL (1500-7000); Platelet Count 376 X10^3/uL (150-400); Red Cell Distribution Width 21.1 % (11.6-14.8); White Blood Cell Count 7.7 X10^3/uL (4.5-11.0)
[2023-01-20 06:41] LABS: Add Manual Diff / Slide Review SLIDE REVIEW
[2023-01-20 06:46] LABS: Magnesium 2.1 mg/dL (1.6-2.3)
[2023-01-20 07:03] LABS: BUN Creatinine Ratio 14.1 (6-22); Blood Urea Nitrogen 44 mg/dL (9-20); Calcium 8.4 mg/dL (8.4-10.2); Carbon Dioxide 23 mmol/L (22-32); Chloride 105 mmol/L (98-107); Estimated Glomerular Filt Rate 20 mL/min (>60); Glucose 122 mg/dL (80-110); HEMOLYSIS < 15 (0-50); Potassium 3.4 mmol/L (3.4-5.1); Sodium 138 mmol/L (137-145)
[2023-01-20 07:30] LABS: Microcytosis 2+; Ovalocytes 1+
[2023-01-20] MEDS: ASPIRIN EC 81 MG TABLET PO (08:12)
[2023-01-20] MEDS: POTASSIUM CHLORIDE 20 MEQ TAB 40 MEQ PO (08:12)
[2023-01-20] MEDS: DOCUSATE 100 MG CAPSULE 200 MG PO ×3 (08:12→23:00)
[2023-01-20] MEDS: AMLODIPINE 5 MG TABLET 10 MG PO (08:12)
[2023-01-20] MEDS: FENOFIBRATE, MICRONIZED 67 MG CAPSULE 201 MG PO (08:13)
[2023-01-20] MEDS: HEPARIN 5,000 UNIT/ML VIAL 5000 UNIT SUBCUT ×2 (08:13→23:00)
[2023-01-20] MEDS: HYDRALAZINE 25 MG TABLET 50 MG PO ×3 (08:13→23:04)
[2023-01-20] MEDS: OXYCODONE ER 10 MG TAB PO ×2 (08:13→22:59)
[2023-01-20] MEDS: PANTOPRAZOLE DR 40 MG TABLET PO ×2 (08:14→23:00)
[2023-01-20] MEDS: SODIUM CHLORIDE 0.9% FLUSH 10 ML IV ×2 (08:14→23:01)
[2023-01-20] MEDS: OXYCODONE/ACETAMINOPHEN 7.5/325 TABLET 1 TAB PO (09:17)
--- NOTE | 2023-01-20 14:48 | P.PN_ITS ---
Subjective Subjective Date Patient Seen: 01/20/23 Interval history: Nelson Goldstein is a 72yo M with PMH of COPD, chronic pain, DM2, GI bleed from gastric ulcer, HTN, HLD, and RA who presents with CP, worsening SOB and LE swelling. Patient says this morning while having coffee he developed substernal chest pressure and SOB which felt dull and achy. Nonradiating and no diaphoresis, NV or clamminess. EMS was called and he was given albuterol and lasix in the ambulance which helped his symptoms significantly and his CP resolved. In the ED found to have BP 207/90. He says he doesn't check his BP often but it has gotten this high before. He only takes lisinopril which he took this morning. He notes he has been having increased leg swelling lately as well as dypsnea with exertion. He smoked 1ppd for 21 years but quit in 1988. Hasn't drank any alcohol for 6 months or so. Lives alone with his pets but has family in the area. He currently denies CP, SOB, NV, abd pain, or diarrhea. Better today with no shortness of breath. No complaints of pain. Exam Vital Signs (past 8 hours): - 01/20/23 08:13 01/20/23 07:40 01/20/23 11:41 Temperature 96.7 F L 96.3 F L Pulse Rate 82 75 Respiratory Rate 17 22 Blood Pressure 197/99 H 197/99 H 164/73 H Pulse Oximetry 100 100 Oxygen Flow Rate 0 01/20/23 11:41 Temperature Pulse Rate Respiratory Rate Blood Pressure 164/73 H Pulse Oximetry Oxygen Flow Rate Oxygen Delivery Method Room Air Oxygen Flow Rate 0 Narrative Exam Narrative: GEN: no acute distress, pleasant and cooperative HEENT: moist mucous membranes, PERRL NECK: trachea midline, no JVD CV: regular rate and rhythm, no murmurs PULM: Good air entry throughout the rivera, no wheezes or crackles. ABD: soft, nontender, nondistended, no organomegaly EXT: warm and well perfused, taut with 1+ distal lower extremities NEURO: awake, alert, oriented, no focal deficits Objective Labs 01/20/23 05:45 01/20/23 05:45 Labs: Laboratory Results - last 24 hr 01/19/23 01/20/2301/20/23 11:00 05:45 05:45 WBC 7.7 RBC 4.90 Hgb 9.7 L Hct 30.4 L MCV 62.1 L MCH 19.8 L MCHC 31.9 RDW 21.1 H Plt Count 376 Neut % (Auto) 74.0 Lymph % (Auto) 15.1 L [place] % (Auto) 7.3 Eos % (Auto) 2.7 Baso % (Auto) 0.9 Neut # (Auto) 5700 Lymph # (Auto) 1200 [place] # (Auto) 600 Eos # (Auto) 200 Baso # (Auto) 100 RBC Morphology See below Microcytosis 2+ H Ovalocytes 1+ H Sodium Potassium Chloride Carbon Dioxide BUN Creatinine Estimated GFR BUN/Creatinine Ratio Glucose Calcium Magnesium 2.1 HIV 1&2 Ab/P24 Ag 4thGn Negative 01/20/23 05:45 WBC RBC Hgb Hct MCV MCH MCHC RDW Plt Count Neut % (Auto) Lymph % (Auto) [place] % (Auto) Eos % (Auto) Baso % (Auto) Neut # (Auto) Lymph # (Auto) [place] # (Auto) Eos # (Auto) Baso # (Auto) RBC Morphology Microcytosis Ovalocytes Sodium 138 Potassium 3.4 Chloride 105 Carbon Dioxide 23 BUN 44 H Creatinine 3.13 H Estimated GFR 20 L BUN/Creatinine Ratio 14.1 Glucose 122 H Calcium 8.4 Magnesium HIV 1&2 Ab/P24 Ag 4thGn [facility] Medical History Barretts esophagus Chronic pain syndrome Diabetes type 2, uncontrolled Dysphagia Essential hypertension Gastric ulcer Hyperlipidemia PTSD (post-traumatic stress disorder) Rheumatoid arthritis Surgical History History of esophagogastroduodenoscopy (EGD) Family History Father Stroke Mother Stroke Other No pertinent family history Social History household members: none Smoking Status: Former smoker Assessment & Plan Assessment & Plan narrative: 1. Possible new-onset CHF exacerbation -dyspnea on exertion, LE edema and rales present on exam. BNP 6.5k. No history of CHF. Symptoms have settled. -echo ordered which shows ejection fraction of 50-55% -lasix 60mg IV BID initially and now not on diuresis. -diamox 500mg daily to aid in decongestion. Has been discontinued. -strict I/O's. Intake of fluid is not restricted at this time. 2. Chest pain with elevated troponin in the setting of HTN urgency -BP 200+ in ED -cardiology did not recommend heparin drip when ED called, no EKG changes -likely due to demand ischemia from CHF exacerbation and dyspnea vs HTN urgency -trend trops -these have trended down and not follow up. -start amlodipine 10 daily and hydralazine 25 TID per cards, this has been changed to hydralazine 50 mg b.i.d. -continue home aspirin # SABRINA on CKD -Cr 2.52 on admission. Baseline 1.7. Today is increased to 3.13 likely secondary to the high doses for diuresis initially. Continue to follow and ens ure trending downward before discharge. -followed outpatient by Dr. Mcgrath nephrology. Continue. -likely venous congestion due to CHF, diuresis as above -holding home lisinopril -avoid nephrotoxic agents -daily BMP's # COPD, not in exacerbation -21 pack year smoker -no wheezing on exam, but albuterol helped by EMS so will continue duoneb as needed -on room air # DM2 -holding home metformin due to high creatinine and low GFR -check A1c, this was 7.1 on January 17, 2023 -low dose SSI # chronic pain -continue home morphine BID and oxy PRN # microcytic anemia -Hgb 9.1 and MCV 62 -check guiaic and iron panel -has low iron of 14 and low % saturation of 4 and low ferritin of 11, no documented guaiac test yet. -will give IV iron and start ferrous sulfate b.i.d. # HLD, chronic -continue home fibrate and statin # GERD -continue home PPI Code status is full code. COVID negative. DVT prophylaxis with heparin subcutaneous. Proxy is daughter Marysol. Time Spent With Patient Critical Care time: I spent a total of [] minutes of critical care time on this patient's care today; this time is exclusive of procedural time.
[2023-01-20] MEDS: FERROUS SULFATE 325 MG TABLET PO (16:19)
[2023-01-20] MEDS: ferumoxytoL 1,020 MG in SODIUM CHLORIDE 0.9% 250 ML 568 MG IV (16:19)
[2023-01-20] MEDS: ATORVASTATIN 20 MG TABLET 40 MG PO (23:01)
[2023-01-20] MEDS: MELATONIN 3 MG TABLET 6 MG PO (23:01)
[2023-01-21] VITALS: BP 183/96; PULSE 88; RESP 18; TEMP 35.8; O2SAT 98
[2023-01-21 04:00] VITALS: BP 167/70; PULSE 84; RESP 19; TEMP 35.7; O2SAT 98
[2023-01-21 05:48] LABS: Add Manual Diff / Slide Review NO; Basophils Absolute Auto 100 /uL (0-100); Basophils Percent Auto 1.2 % (0-2); Eosinophils Absolute Auto 200 /uL (0-450); Eosinophils Percent Auto 2.5 % (2-4); Hematocrit 27.7 % (41-53); Hemoglobin 8.9 g/dL (13.5-17.5); Lymphocytes Absolute Auto 1000 /uL (1100-4500); Lymphocytes Percent Auto 12.4 % (25-40); Mean Corpuscular HGB Conc 32.2 % (30-36); Mean Corpuscular Hemoglobin 20.1 PG (26-34); Mean Corpuscular Volume 62.3 fL (80-100); Monocytes Absolute Auto 600 /uL (0-900); Monocytes Percent Auto 6.7 % (3-14); Neutrophils Absolute Auto 6400 /uL (1500-7000); Neutrophils Percent Auto 77.2 % (50-75); Platelet Count 270 X10^3/uL (150-400); Red Blood Cell Count 4.45 X10^6/uL (4.5-5.9); White Blood Cell Count 8.3 X10^3/uL (4.5-11.0)
[2023-01-21 06:01] LABS: BUN Creatinine Ratio 16.5 (6-22); Blood Urea Nitrogen 44 mg/dL (9-20); Calcium 8.6 mg/dL (8.4-10.2); Carbon Dioxide 18 mmol/L (22-32); Chloride 110 mmol/L (98-107); Estimated Glomerular Filt Rate 25 mL/min (>60); Glucose 143 mg/dL (80-110); HEMOLYSIS < 15 (0-50); Potassium 3.6 mmol/L (3.4-5.1); Sodium 136 mmol/L (137-145)
[2023-01-21 06:03] LABS: Magnesium 2.2 mg/dL (1.6-2.3)
[2023-01-21 07:03] LABS: Anisocytosis 2+; Microcytosis 2+; Poikilocytosis 2+
[2023-01-21] MEDS: OXYCODONE/ACETAMINOPHEN 7.5/325 TABLET 1 TAB PO (07:50)
[2023-01-21 08:00] VITALS: BP 194/98; PULSE 81; RESP 18; TEMP 36; O2SAT 100
[2023-01-21] MEDS: INSULIN LISPRO 100 UNIT/ML 3ML VIAL SUBCUT ×2 (08:04→12:39)
[2023-01-21] MEDS: ASPIRIN EC 81 MG TABLET PO (08:23)
[2023-01-21] MEDS: DOCUSATE 100 MG CAPSULE 200 MG PO (08:23)
[2023-01-21] MEDS: AMLODIPINE 5 MG TABLET 10 MG PO (08:23)
[2023-01-21] MEDS: OXYCODONE ER 10 MG TAB PO (08:23)
[2023-01-21] MEDS: HEPARIN 5,000 UNIT/ML VIAL 5000 UNIT SUBCUT (08:23)
[2023-01-21] MEDS: FENOFIBRATE, MICRONIZED 67 MG CAPSULE 201 MG PO (08:23)
[2023-01-21] MEDS: HYDRALAZINE 25 MG TABLET 50 MG PO (08:23)
[2023-01-21] MEDS: PANTOPRAZOLE DR 40 MG TABLET PO (08:24)
[2023-01-21] MEDS: FERROUS SULFATE 325 MG TABLET PO (08:25)
[2023-01-21] MEDS: POTASSIUM CHLORIDE 20 MEQ TAB 40 MEQ PO (08:25)
[2023-01-21] MEDS: SODIUM CHLORIDE 0.9% FLUSH 10 ML IV (08:26)
[2023-01-21 12:00] VITALS: BP 167/77; PULSE 83; RESP 16; TEMP 36.3; O2SAT 99
--- NOTE | 2023-01-21 14:36 | CM.DPC ---
DCP Discharge Home Per MD, pt is medically stable to d/c home today and no identified barriers to discharge. Per RN, pt has continued to ambulate the hallways multiple times a day and independent and will provide discharge instructions to pt once d/c completed in computer. No concerns at this time. Plan: Patient to d/c home via POV and outpt f/u with his PCP and no further SW needs at this time. JEAN CLAUDE Romero
--- NOTE | 2023-01-21 14:49 | P.DS_ITS ---
History of Present Illness History of Present Illness Chief complaint: COPD Narrative: Patient feeling fine walking the halls and eager to go home. Discharge Providers Provider Date of admission: 01/17/23 15:07 Discharge Date: 01/21/23 Primary care physician: Kristopher Espinoza MD Discharge provider: Nayeli Mcgill MD Summary Hospital Course Hospital Course: Nelson Goldstein is a 72yo M with PMH of COPD, chronic pain, DM2, GI bleed from gastric ulcer, HTN, HLD, and RA who presents with CP, worsening SOB and LE swelling. Patient says this morning while having coffee he developed substernal chest pressure and SOB which felt dull and achy. Nonradiating and no diaphoresis, NV or clamminess. EMS was called and he was given albuterol and lasix in the ambulance which helped his symptoms significantly and his CP resolved. In the ED found to have BP 207/90. He says he doesn't check his BP often but it has gotten this high before. He only takes lisinopril which he took this morning. He notes he has been having increased leg swelling lately as well as dypsnea with exertion. He smoked 1ppd for 21 years but quit in 1988. Hasn't drank any alcohol for 6 months or so. Lives alone with his pets but has family in the area. He currently denies CP, SOB, NV, abd pain, or diarrhea. For elevated blood pressure and elevated BNP of 6580, the patient was initially treated with intravenous furosemide for diuresis. Subsequently due to the elevation in creatinine and low GFR, patient was transitioned to oral medications for hypertension control with that were not nephrotoxic. Blood pressure medications were changed as per discussion with Cardiology. Chest x- ray noted multilobar pneumonia. Patient will be sent home on Augmentin 500/125 t.i.d. for 7 days. Patient should have a follow-up x-rays in the community to assess for resolution and to further evaluate a patient who has been a chronic smoker to ensure no malignancy. During the hospital stay patient's iron was noted to be very low with also low % saturation and ferritin. Patient was given dose intravenously of Feraheme 1020 mg IV. Subsequently he was placed on ferrous sulfate 325 mg p.o. b.i.d.. Renal failure had a peak creatinine of 3.13 on this admission but trending down towards the patient's baseline and was at 2.66 at the time of discharge. As well during the hospital stay patient had a bump in troponin level likely due to the cardiac strain with the tension. However after the bump to 0.196 the troponin was trending down at 0.188. Patient will need close follow-up by his physicians after discharge. Many immunology and serology tests are still pending at the time of discharge and should be viewed by his physicians following discharge. Status at Discharge Cognitive/behavioral status at discharge: at baseline, oriented Functional status at discharge: independent ambulation Overall status at discharge: patient is back to baseline Time Spent with Patient Time spent: Greater than 30 minutes Exam Vital Signs (past 8 hours): - 01/21/23 08:00 01/21/23 12:00 01/21/23 12:00 Temperature 96.8 F L 97.4 F L Pulse Rate 81 83 Respiratory Rate 18 16 Blood Pressure 194/98 H 167/77 H 167/77 H Pulse Oximetry 100 99 Oxygen Flow Rate 0 0 Oxygen Delivery Method Room Air Oxygen Flow Rate 0 Narrative Exam Narrative: GEN: no acute distress, pleasant and cooperative HEENT: moist mucous membranes, PERRL NECK: trachea midline, no JVD CV: regular rate and rhythm, no murmurs PULM:? Good air entry throughout the rivera, no wheezes or crackles. ABD: soft, nontender, nondistended, no organomegaly EXT: warm and well perfused, taut with 1+ distal lower extremities edema NEURO: awake, alert, oriented, no focal deficits Objective Labs 01/21/23 04:58 01/21/23 04:58 Labs: Laboratory Results - last 24 hr 01/21/23 01/21/23 01/21/23 04:58 04:58 04:58 WBC 8.3 RBC 4.45 L Hgb 8.9 L Hct 27.7 L MCV 62.3 L MCH 20.1 L MCHC 32.2 RDW 21.0 H Plt Count 270 Neut % (Auto) 77.2 H Lymph % (Auto) 12.4 L [place] % (Auto) 6.7 Eos % (Auto) 2.5 Baso % (Auto) 1.2 Neut # (Auto) 6400 Lymph # (Auto) 1000 L [place] # (Auto) 600 Eos # (Auto) 200 Baso # (Auto) 100 RBC Morphology Not Reportable Poikilocytosis 2+ H Anisocytosis 2+ H Microcytosis 2+ H Sodium 136 L Potassium 3.6 Chloride 110 H Carbon Dioxide 18 L BUN 44 H Creatinine 2.66 H Estimated GFR 25 L BUN/Creatinine Ratio 16.5 Glucose 143 H Calcium 8.6 Magnesium 2.2 PFSH Medical History Barretts esophagus Chronic pain syndrome Diabetes type 2, uncontrolled Dysphagia Essential hypertension Gastric ulcer Hyperlipidemia PTSD (post-traumatic stress disorder) Rheumatoid arthritis Surgical History History of esophagogastroduodenoscopy (EGD) Family History Father Stroke Mother Stroke Other No pertinent family history Social History household members: none Smoking Status: Former smoker Discharge Plan Discharge Plan Patient Disposition: Home Provider Discharge Comment: Follow-up with primary physician in nephrology physician as soon as possible. Have them review tests on [employer] and note on [employer]. Discharge orders & Medications Prescriptions: New hydralazine 25 mg Tablet 50 mg PO TID Qty: 180 0RF melatonin 3 mg Tablet 6 mg PO BEDTIME PRN (Reason: Insomnia) Qty: 30 0RF amlodipine [Norvasc] 5 mg Tablet 10 mg PO DAILY Qty: 60 0RF aspirin 81 mg Tablet,Delayed Release (Dr/Ec) 81 mg PO DAILY Qty: 30 0RF ferrous sulfate 325 mg (65 mg iron) Tablet 325 mg PO BIDWM Qty: 60 0RF polyethylene glycol 3350 17 gram Powder In Packet 17 gm PO DAILY PRN (Reason: Constipation) Qty: 10 0RF amoxicillin-pot clavulanate [Augmentin] 500-125 mg tablet 1 tab PO TID Qty: 21 0RF Continued fenofibrate 160 MG tablet 160 mg PO DAILY Qty: 0 oxycodone [OxyContin] 10 mg Tablet,Oral Only,Ext.Rel.12 Hr 10 mg PO BID pantoprazole [Protonix] 40 mg tablet,delayed release (DR/EC) 40 mg PO BID Qty: 60 0RF atorvastatin [Lipitor] 40 MG tablet 40 mg PO QAM Qty: 30 0RF docusate calcium 240 mg capsule 240 mg PO TID oxycodone-acetaminophen 10-325 mg tablet 1 tab PO Q8H PRN (Reason: pain) fluticasone propionate 50 mcg/actuation spray,suspension 1 spray Intranasal DIRECTED labetalol 100 mg Tablet 100 mg PO BID Qty: 60 0RF Discontinued nifedipine 60 MG tablet extended release 24hr 60 mg PO BID Qty: 0 lisinopril 40 mg tablet 40 mg PO DAILY Follow up/Referrals: Kristopher Espinoza MD [Primary Care Provider] - (*Appt on Saturday, at 11:00am with Sheldon Gomez. [phone].) Visit Report/Discharge Packet Instructions: DI for Heart Failure Stand Alone Forms: Patient Portal/API, Stroke Signs & Symptoms Discharge Data Primary Care Provider: Kristopher Espinoza
--- NOTE | 2023-01-21 16:07 | PC.NURSE ---
Discharge Note Patient A&O, VSS, RA, no complaints of pain/discomfort. Patient agreeable to discharge plan. Discharge packet reviewed with patient, all questions/concerns addressed. PIV/TELE discontinued. 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 Patient able to dress self and pack all belongings. Patient taken down via wheelchair to POV.
[2023-01-22 02:57] LABS: HBsAg Screen Negative (Negative); Hepatitis A Antibody IgM Negative (Negative); Hepatitis B Core Antibody IgM Negative (Negative); Hepatitis C Antibody Non Reactive (Non Reactive); RPR Screen Non Reactive (Non Reactive)
[2023-01-22 03:36] LABS: Complement C3 169 mg/dL (82-167)
[2023-01-22 15:42] LABS: ANA Screen, IFA Negative (.)
[2023-01-22 23:54] LABS: Complement Total CH50 > 60 U/mL (>41)
[2023-01-25 11:36] LABS: Atypical P-ANCA Titer <1:20 titer (Neg:<1:20); C-ANCA Titer <1:20 titer (Neg:<1:20); P-ANCA Titer <1:20 titer (Neg:<1:20)
[2023-01-25 14:49] LABS: Antimyeloperoxidase AB <0.2; Antiproteinase 3 AB <0.2
== END 2023-01-21 15:30 | disposition home or self-care (01) | DRG 698 ==
LOC: ED 10:53 → AC 15:08
PROVIDERS: Neuromusculoskeletal Medicine, Sports Medicine; Admitting Provider Student in an Organized Health Care Education/Training Program; Emergency Provider Emergency Medicine; Family Provider Internal Medicine; PCP Internal Medicine; Referring Provider Emergency Medicine; Visit Provider Student in an Organized Health Care Education/Training Program
DX: N04.9 Nephrotic syndrome with unspecified morphologic changes (principal); J18.9 Pneumonia, unspecified organism; I34.0 Nonrheumatic mitral (valve) insufficiency; N17.9 Acute kidney failure, unspecified; I16.0 Hypertensive urgency; J44.9 Chronic obstructive pulmonary disease, unspecified; G89.29 Other chronic pain; E78.5 Hyperlipidemia, unspecified; K21.9 Gastro-esophageal reflux disease without esophagitis; E11.22 Type 2 diabetes mellitus with diabetic chronic kidney disease; N18.9 Chronic kidney disease, unspecified; R77.8 Other specified abnormalities of plasma proteins; D50.9 Iron deficiency anemia, unspecified; Z79.84 Long term (current) use of oral hypoglycemic drugs; Z87.891 Personal history of nicotine dependence; Z20.822 Contact with and (suspected) exposure to COVID-19
CPT/HCPCS: 36415; 71045; 76770; 80048; 80053; 80061; 80074; 80305; 81001; 82550; 82553; 82570; 82728; 82962; 83036; 83520; 83540; 83550; 83605; 83690; 83735; 83880; 84145; 84156; 84443; 84484; 85025; 85379; 85610; 85730; 86038; 86160; 86162; 86256; 86592; 87389; 87635; 93005; 93010; 93306; 93970; 94640; 96374; 96375; 99284; C9803; J1644; J1815; J1940; J2930; J3475; J7613; Q0138